=== PATIENT | female | born 1980 | race Caucasian/White ===

== ENCOUNTER 2017-07-11 09:45 | Emergency (ER) | payer OTHER ==
[~2017-07-11] VITALS: Ht 170.2 cm; Wt 88.2 kg
[~2017-07-11 09:45] MED LIST: CITA10TA8 PO; NXM/40 PO
[2017-07-11 09:47] VITALS: TEMP 37.1; Ht 170.2 cm; Wt 88.2 kg
[2017-07-11] MEDS ORDERED: SODIUM CHLORIDE 0.9% 1000ML 1,000 ML IV STA (10:09)
[2017-07-11] MEDS ORDERED: HYDROmorphone INJ 1 MG/ML SYR IV STA ×2 (10:09→12:44)
[2017-07-11] MEDS ORDERED: HYDR2TAB2 PO (10:13)
[2017-07-11] MEDS ORDERED: CITA20TA4 PO (10:13)
[2017-07-11 10:47] LABS: BASO % 0.2 %; BASO ABS # 0.02 K/uL (0-0.2); EOS % 0.6 %; EOS ABS # 0.06 K/uL (0-0.5); HEMATOCRIT 38.8 % (37-47); HEMOGLOBIN 12.9 g/dL (12.0-16.0); IG# 0.03 K/uL (0.00-0.02); LYMPH % 12.2 %; LYMPH ABS # 1.33 K/uL (1.2-3.4); MEAN CELL VOLUME 91.7 fL (80-100); MEAN CORPUSCULAR HEMOGLOBIN 30.5 pg (25-34); MEAN CORPUSCULAR HGB CONC 33.2 g/dl (32-36); MEAN PLATELET VOLUME 9.6 fL (7.4-10.4); MONO % 6.3 %; MONO ABS # 0.69 K/uL (0.11-0.59); NEUT % 80.4 %; NEUT ABS # 8.75 K/uL (1.4-6.5); PLATELET COUNT 228 K/uL (130-400); RED CELL DISTRIBUTION WIDTH CV 13.1 % (11.5-14.5); RED CELL DISTRIBUTION WIDTH SD 44.2 fL (36.4-46.3); WHITE BLOOD COUNT 10.88 K/uL (4.8-10.8)
--- NOTE | 2017-07-11 10:57 | Urology Consultation ---
History General Date of Service: Jul 11, 2017. Chief Complaint: right neph tube pain Primary Care Physician: Ej Aleman M.D. (MEDICAL) Pt seen a urologist before?: Yes If yes, why?: right kidney pain History of Present Illness I am asked by Dr Macdonald to evaluate and treat patient for right flank pain. She has a right neph [place] [facility] [place]. She has noted relief of her internal aching pain in the right kidney with the nephrostomy tube. She has instead new sharp pain from the tube itself at the skin level and with movement in the kidney area. It is sharp stabbing pain. She had gross hematuria draining from the nephrostomy tube until today. Today the urine is clear yellow. She drains about 75 mL of urine from neph tube every 2 hours. She has not had any cloudy urine of chills and no dysuria. Her temp at home this am tympanic was 100F. SHe says the new pain from the nephrostomy tube is much worse than the chronic aching kidney pain from her partial obstruction. Laboratory Labs were reviewed and are within normal limits unless listed below. Labs are available in the chart and at [facility] Problem List Medical Problems: (1) Back strain Status: Acute Past History other (upjo right ) Pt had a problem w anesthesia?: Yes Past Surgical History: exploratory laparoscopy, hysterectomy, other (2 pyeloplaty, one endopyelotomy, stents ) Family History Patient reports no known family medical history. kidney stones in aunts and uncles, dad mi age 55 Social History Hx Tobacco Use In Past Year?: No Smoking: non-smoker Alcohol: never Marital status: Housing status: lives with family Occupation status: employed Immunizations History of Influenza Vaccine: Yes Influenza Vaccine Date: Jan 13, 2012 History of Tetanus Vaccine?: No History of Pneumococcal: No History of Hepatitis B Vaccine: No History of MDRO No Allergies Coded Allergies: Morphine (Verified Allergy, Severe, hives, 08/06/15) Adhesives (Verified Allergy, Unknown, SKIN BLISTERS ,SWELLING WITH TAPE, ) Metronidazole (Verified Allergy, Unknown, NASTY TASTE MOUTH GI UPSET, 08/05) Sulfa Antibiotics (Verified Adverse Reaction, Unknown, NAUSEA AND VOMITING , 08/12/15) Medications Home Medications: Home Meds and Scripts Medications Dose Route/Sig Max Daily Dose Days Date Category Citalopram Hydrobromide 20 Mg Tab 20 Mg PO DAILY 07/11/17 Reported Hydromorphone Hcl 2 Mg Tab 2 Mg PO Q6 PRN 07/11/17 Reported Inpatient Medications: Current Inpatient Medications Medications (Trade) Dose Ordered Sig/Iam Route Start Time Stop Time Status Last Admin Dose Admin Sodium Chloride 1,000 ml @ 150 mls/hr Q6H40M STAT IV 07/11/17 10:09 07/11/17 16:48 Review of Systems Review of Systems Constitutional: + fever, No chills, No frequent headaches Neurological: No dizzy, No passing out, No seizures Endocrine: No excessive thirst, No too hot, No too cold Gastrointestinal: + abdominal pain, + constipation, No nausea Respiratory: No shortness of breath Female : + blood in urine, No frequent urination, No painful urination Physical Exam Vital Signs: Vital Signs Past 12 Hours Date Time Temp Pulse Resp B/P (MAP) Pulse Ox O2 Delivery O2 Flow Rate FiO2 07/11/17 09:47 37.1 111 20 118/72 100 Room Air Physical Exam: General Appearance: WD/WN, no apparent distress ENT: hearing grossly normal Neck: no adenopathy, no JVD, trachea midline Respiratory/Chest: no respiratory distress, no accessory muscle use Gastrointestinal: Abdomen: normal abdomen Bladder: normal bladder Renal: normal renal (no cellulitis around neph tube insertion site. right neph tube clean draining yellow urine no blood) Hernia: absent hernia Extremities: non-tender, normal inspection, no pedal edema, no calf tenderness Neurologic/Psychiatric: alert, normal mood/affect, oriented x 3, + pertinent finding (she is in no distress reclining in the hospital bed) Skin: normal color, warm/dry, no rash Lymphatic: no adenopathy Assessment & Plan Assessment & Plan right partial upjo last nuc scan shows only functional not mechanical obstruction neph tube did drain briskly day and night and relieved her chronic kidney ache she is not tolerating the stabbing pain of the tubes movement with her daily activities. We plan a right antegrade nephrostogram then remove the neph tube ancef one dose now
[2017-07-11 11:03] LABS: CREATININE 0.67 mg/dl (0.60-1.20); POTASSIUM 3.6 mmol/L (3.5-5.1)
[2017-07-11 11:05] LABS: ALBUMIN 3.8 gm/dl (3.4-5.0); TOTAL PROTEIN 7.4 gm/dl (6.4-8.2)
[2017-07-11] MEDS ORDERED: CEFAZOLIN IV 2,000 MG in SYRINGE 0 ML IV SCH (11:08)
[2017-07-11] MEDS ORDERED: CEFAZOLIN SOD 1000MG/7.5 ML IV PUSH IV ONE (11:10)
--- NOTE | 2017-07-11 11:50 | DIAGNOSTIC IMAGING REPORT ---
TUBE CHECK URINARY CLINICAL HISTORY: RIGHT NEPHROSTOMY TUBE PAIN pain TECHNIQUE: Image intensifier COMPARISON STUDY: None FINDINGS: This examination is performed by Dr. Cloud. Retrograde opacification of the patient's right nephrostomy tube shows opacification of a moderately distended upper right renal collecting system. There is moderate narrowing of the right ureteral pelvic junction. There is no evidence for contrast extravasation. There is no evidence for occlusion. IMPRESSION: 1. The right nephrostomy tube is widely patent. 2. Moderate right renal hydronephrosis. 3. Moderate narrowing of the proximal right ureter immediately distal to the right ureteral pelvic junction. This may simply be a postoperative component of edema secondary to the patient's prior pyeloplasty, although other entities such as fibrous tissue or congenital narrowing are not excluded. The above report was generated using voice recognition software. It may contain grammatical, syntax or spelling errors. Electronically signed by: Flaco Agustin M.D. 07/11/2017 11:49 AM Dictated Date/Time: 07/11/2017 11:45 AM
[2017-07-11 12:44] VITALS: BP 106/67; PULSE 93; O2SAT 100
[2017-07-11] MEDS ORDERED: KETOROLAC TROMETHAMINE 30 MG/ML VIAL IV STA (12:44)
--- NOTE | 2017-07-11 12:56 | EMERGENCY ROOM VISIT NOTE ---
History Report prepared by Farrah: Mor Merchant Under the Supervision of: Dr. Lynette Small M.D. First contact with patient: 10:03 Chief Complaint: FLANK PAIN Stated Complaint: RT FLANK PAIN History of Present Illness The patient is a 36 year old female who presents to the Emergency Room with complaints of constant right flank pain beginning a few days ago. She rates her pain as a 9/10 in severity. The patient's pain is worsened with movement. She denies any nausea, or vomiting. 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 She had the tube placed one week ago. She is scheduled to have her kidney removed in the near future. The patient called her logistics director today and was referred to the ED for pain control. She was told that urology, Dr Cloud, could remove the nephrostomy tube for her if need be. She is on Dilaudid at home for pain. The patient states that her tube has been draining blood and clots until today. Source of History: patient Onset: A few days ago Position: other (right flank) Symptom Intensity: 9/10 Timing: constant Modifying Factors (Worsening): movement Associated Symptoms: No nausea, No vomiting Review of Systems See HPI for pertinent positives & negatives. A total of 10 systems reviewed and were otherwise negative. Past Medical & Surgical Medical Problems: (1) History of endometriosis (2) Pelvic pain Surgical Problems: (1) Pyeloplasty Family History Patient reports no known family medical history. Social History Smoking Status: Never Smoker Alcohol Use: none Marital Status: Housing Status: lives with family Occupation Status: employed Current/Historical Medications Scheduled Citalopram Hydrobromide (Citalopram Hydrobromide), 20 MG PO DAILY Scheduled PRN Hydromorphone Hcl (Hydromorphone Hcl), 2 MG PO Q6 PRN for Pain Allergies Coded Allergies: Morphine (Verified Allergy, Severe, hives, 08/06/15) Adhesives (Verified Allergy, Unknown, SKIN BLISTERS ,SWELLING WITH TAPE, ) Metronidazole (Verified Allergy, Unknown, NASTY TASTE MOUTH GI UPSET, 08/05) Sulfa Antibiotics (Verified Adverse Reaction, Unknown, NAUSEA AND VOMITING , 08/12/15) Physical Exam Vital Signs Date Time Temp Pulse Resp B/P (MAP) Pulse Ox O2 Delivery O2 Flow Rate FiO2 07/11/17 12:44 93 18 106/67 100 Room Air 07/11/17 11:44 95 18 119/87 98 Room Air 07/11/17 09:47 37.1 111 20 118/72 100 Room Air Physical Exam Vital signs reviewed. General: Well-appearing female, in no significant distress. HEENT: No scleral icterus, PERRLA, neck supple. Atraumatic. Cardiovascular: Regular rate and rhythm, no extra sounds. Pulmonary: Clear to auscultation bilaterally, normal work of breathing. Pain with deep inspiration. Abdomen: Soft, nontender, nondistended, positive bowel sounds. Back: Draining clear yellow urine from right nephrostomy tube. Tender to palpation around the tube with no edema, or drainage. Musculoskeletal: Atraumatic, no peripheral edema. Neurologic: Patient awake alert and oriented x 3 Skin: Warm, dry, no rash Medical Decision & Procedures Laboratory Results 07/11/17 10:35 Red Blood Count 4.23, Mean Corpuscular Volume 91.7, Mean Corpuscular Hemoglobin 30.5, Mean Corpuscular Hemoglobin Concent 33.2, Mean Platelet Volume 9.6, Neutrophils (%) (Auto) 80.4, Lymphocytes (%) (Auto) 12.2, Monocytes (%) (Auto) 6.3, Eosinophils (%) (Auto) 0.6, Basophils (%) (Auto) 0.2, Neutrophils # (Auto) 8.75, Lymphocytes # (Auto) 1.33, Monocytes # (Auto) 0.69, Eosinophils # (Auto) 0.06, Basophils # (Auto) 0.02 07/11/17 10:35 Test 07/11/17 10:35 07/11/17 11:45 White Blood Count 10.88 K/uL (4.8-10.8) Red Blood Count 4.23 M/uL (4.2-5.4) Hemoglobin 12.9 g/dL (12.0-16.0) Hematocrit 38.8 % (37-47) Mean Corpuscular Volume 91.7 fL (80-100) Mean Corpuscular Hemoglobin 30.5 pg (25-34) Mean Corpuscular Hemoglobin Concent 33.2 g/dl (32-36) Platelet Count 228 K/uL (130-400) Mean Platelet Volume 9.6 fL (7.4-10.4) Neutrophils (%) (Auto) 80.4 % Lymphocytes (%) (Auto) 12.2 % Monocytes (%) (Auto) 6.3 % Eosinophils (%) (Auto) 0.6 % Basophils (%) (Auto) 0.2 % Neutrophils # (Auto) 8.75 K/uL (1.4-6.5) Lymphocytes # (Auto) 1.33 K/uL (1.2-3.4) Monocytes # (Auto) 0.69 K/uL (0.11-0.59) Eosinophils # (Auto) 0.06 K/uL (0-0.5) Basophils # (Auto) 0.02 K/uL (0-0.2) RDW Standard Deviation 44.2 fL (36.4-46.3) RDW Coefficient of Variation 13.1 % (11.5-14.5) Immature Granulocyte % (Auto) 0.3 % Immature Granulocyte # (Auto) 0.03 K/uL (0.00-0.02) Anion Gap 1.0 mmol/L (3-11) Est Creatinine Clear Calc Drug Dose 132.4 ml/min Estimated GFR () 131.1 Estimated GFR (Non- 113.1 BUN/Creatinine Ratio 17.9 (10-20) Calcium Level 9.0 mg/dl (8.5-10.1) Total Bilirubin 0.6 mg/dl (0.2-1) Direct Bilirubin 0.2 mg/dl (0-0.2) Aspartate Amino Transf (AST/SGOT) 15 U/L (15-37) Alanine Aminotransferase (ALT/SGPT) 26 U/L (12-78) Alkaline Phosphatase 59 U/L (45-117) Total Protein 7.4 gm/dl (6.4-8.2) Albumin 3.8 gm/dl (3.4-5.0) Urine Color DK YELLOW Urine Appearance CLOUDY (CLEAR) Urine pH 5.5 (4.5-7.5) Urine Specific Mcintosh 1.032 (1.000-1.030) Urine Protein NEG (NEG) Urine Glucose (UA) NEG (NEG) Urine Ketones TRACE (NEG) Urine Occult Blood TRACE (NEG) Urine Nitrite NEG (NEG) Urine Bilirubin NEG (NEG) Urine Urobilinogen NEG (NEG) Urine Leukocyte Esterase NEG (NEG) Urine WBC (Auto) 1-5 /hpf (0-5) Urine RBC (Auto) 5-10 /hpf (0-4) Urine Hyaline Casts (Auto) 1-5 /lpf (0-5) Urine Epithelial Cells (Auto) >30 /lpf (0-5) Urine Bacteria (Auto) NEG (NEG) Laboratory results per my review. Medications Administered Medications (Trade) Dose Ordered Sig/Iam Route Start Time Stop Time Status Last Admin Dose Admin Hydromorphone HCl (Dilaudid Inj) 1 mg NOW STAT IV 07/11/17 10:09 07/11/17 10:11 DC 07/11/17 11:12 1 MG Sodium Chloride 1,000 ml @ 150 mls/hr Q6H40M STAT IV 07/11/17 10:09 07/11/17 13:23 DC 07/11/17 10:09 150 MLS/HR Cefazolin Sodium (Cefazolin 1000mg Iv Push) 2,000 mg STK-MED ONCE IV 07/11/17 11:10 07/11/17 11:11 DC 07/11/17 11:10 2,000 MG Ketorolac Tromethamine (Toradol Inj) 30 mg NOW STAT IV 07/11/17 12:44 07/11/17 12:45 DC 07/11/17 12:50 30 MG Hydromorphone HCl (Dilaudid Inj) 1 mg NOW STAT IV 07/11/17 12:44 07/11/17 12:45 DC 07/11/17 12:51 1 MG ED Course 1006: Past medical records reviewed. The patient was evaluated in room B5. A complete history and physical examination was performed. 1009: Ordered Sodium Chloride 1000 ml @ 150 mls/hr IV, Dilaudid Inj 1 mg IV. 1100: I spoke with Dr. Cloud. The patient will be evaluated for possible nephrostomy tube removal. 1108: Ordered Cefazolin Sodium 2000 mg/Syringe 15 mL @ 3.375 mL/min IV. 1210: The patient was evaluated by Dr. Cloud. She did not remove the patient' s nephrostomy tube as the ureter was not draining well. 1244: Ordered Dilaudid Inj 1 mg IV, Toradol Inj 30 mg IV. 1250: Upon reevaluation, the patient appeared to have improvement of her symptoms. I discussed findings with her. She verbalized agreement of the treatment plan. The patient was discharged home. Medical Decision Differential diagnosis: Etiologies such as renal colic, appendicitis, diverticulitis, mesenteric ischemia, aortic pathology, infections, inflammatory bowel disease, PUD, biliary pathology, UTI, as well as others were entertained. This patient was evaluated and appeared to be in no significant distress. She is tearful and somewhat uncomfortable with movement. The right nephrostomy tube appears to be in good condition, there is no surrounding discharge or erythema. Laboratory work was obtained, IV fluids were initiated. Patient was given 1 mg of IV Dilaudid. X-ray and ultrasound were ordered to evaluate the tube placement however Dr. Cloud of urology arrived in the emergency department. She stated she would like to take the patient for nephrostogram. After the patient's procedure, Dr. Cloud decided that the tube removal was not in her best interest. She has made arrangements for a tube exchange to a smaller more flexible tube. She felt this would likely cause the patient less pain. Patient was given 30 mg of IV Toradol an additional 1 mg of IV Dilaudid post procedure. She was discharged with an understanding of the plan. She will continue her oral pain medications at home and follow-up with [facility] urology/interventional radiology. They will contact her with appointment times. Patient was discharged in care of her mother. Medication Reconcilliation Current Medication List: was personally reviewed by me Blood Pressure Screening Patient's blood pressure: Normal blood pressure Blood pressure disposition: Did not require urgent referral Consults Time Called: 1155 Consulting Physician: Dr. Cloud - Urology Returned Call: 1200 I reviewed the patient's case with Dr. Cloud. She will evaluate the patient for possible nephrostomy tube removal. 1241: I spoke with Dr. Cloud again. She recommends the patient be discharged for follow up with urology and interventional radiology. Impression Primary Impression: Right flank pain Additional Impression: Complication of nephrostomy Scribe Attestation The scribe's documentation has been prepared under my direction and personally reviewed by me in its entirety. I confirm that the note above accurately reflects all work, treatment, procedures, and medical decision making performed by me. Departure Information Dispostion Home / Self-Care Referrals Ej Aleman M.D. (MEDICAL) (PCP) Forms HOME CARE DOCUMENTATION FORM, IMPORTANT VISIT INFORMATION Patient Instructions My [facility] [employer] Additional Instructions Diagnosis: Right flank pain, nephrostomy tube. Continue your pain medications as prescribed. Dr. Cloud has contacted interventional radiology and urology at [facility]. They should be contacting you regarding follow-up and plans for a tube exchange. Return to the emergency department for fevers, worsening of symptoms or any medical concerns. Problem Qualifiers
[2017-07-12] MEDS ORDERED: CEFAZOLIN SOD 2000MG/15 ML IV PUSH IV ONE (06:00)
== END 2017-07-11 13:06 | disposition home or self-care (01) ==
LOC: C.EDB 09:46
DX: R10.84 Generalized abdominal pain (principal); T85.9XXA Unspecified complication of internal prosthetic device, implant and graft, initial encounter; X58.XXXA Exposure to other specified factors, initial encounter; Z88.5 Allergy status to narcotic agent; Z88.2 Allergy status to sulfonamides; Z88.8 Allergy status to other drugs, medicaments and biological substances

== ENCOUNTER 2023-12-19 15:42 | Observation (INO) ==
[2023-12-19 16:47] LABS: Hematocrit (blood only) 38.1 % (37.0-47.0); Mean Corpuscular Hgb Conc 34.1 g/dL (32.0-36.0); Mean Corpuscular Volume 90.9 fL (80.0-100.0); Mean Platelet Volume 10.1 fL (9.4-12.4); Platelet Count 277 K/uL (130-400); RDW Coefficient of Variation 12.3 % (11.5-14.5); RDW Standard Deviation 41.2 fL (36.4-46.3); Red Blood Count 4.19 M/uL (4.20-5.40); White Blood Count 10.25 K/ul (4.8-10.8)
[2023-12-19 17:02] LABS: Alanine Aminotransferase 14 U/L (7-52); Albumin Globulin Ratio 1.7 (0.9-2); Albumin Level 4.5 gm/dl (3.4-5.0); Alkaline Phosphatase 56 U/L (34-104); Anion Gap 7 (3-11); Aspartate Aminotransferase 13 U/L (13-39); BUN Creatinine Ratio 15.8 (10-20); Bilirubin,Total 0.3 mg/dl (0.2-1.0); Blood Urea Nitrogen 19 mg/dl (6-23); Calcium 9.4 mg/dl (8.6-10.3); Carbon Dioxide 24 mmol/L (21-32); Chloride 107 mmol/L (98-107); Creatinine Clr Calc Pharmacy 74.8 ml/min; Est GFR (African American) 64.6 ml/min; Est GFR (Non-African American) 55.7 ml/min; Globulin 2.6 gm/dl (2.5-4.0); Glucose 165 mg/dl (70-99(Fasting)); Sodium 138 mmol/L (136-145); Total Protein 7.1 gm/dl (6.0-8.3)
[2023-12-19 17:05] LABS: Basophils # (auto) 0.01 K/uL (0.00-0.20); Basophils % (auto) 0.1 %; Immature Granulocytes # (auto) 0.04 K/uL (0.01-0.20); Immature Granulocytes % (auto) 0.4 %; Lymphocytes # (auto) 0.74 K/uL (1.20-3.40); Lymphocytes % (auto) 7.2 %; Monocytes # (auto) 0.21 K/uL (0.11-0.59); Neutrophils # (auto) 9.25 K/uL (1.40-6.50); Neutrophils % (auto) 90.3 %
[2023-12-19 17:08] LABS: Troponin I High Sensitivity < 2.3 pg/ml (0-14)
[2023-12-19 17:13] LABS: INR 0.9 (0.9-1.1); Partial Thromboplastin Ratio 0.9; Partial Thromboplastin Time 24 Seconds (21-31)
--- NOTE | 2023-12-19 17:17 | XRay Report ---
XR chest 1V not portable HISTORY: 42 years-old Female Chest pain, nonspecific COMPARISON: 07/22/2013 TECHNIQUE: PA view of the chest FINDINGS: Cardiomediastinal and hilar silhouettes are within normal limits. No pneumothorax, pleural effusion o r airspace consolidation. Mild sigmoid thoracolumbar scoliosis. Cholecystectomy. IMPRESSION: No acute process. ACT 112: Negative or not required by law. The above report was generated using voice recognition software. It may contain grammatical, syntax o r spelling errors. Electronically signed by: Sonido Cintron M.D. 12/19/2023 5:15 PM
--- NOTE | 2023-12-19 18:51 | Emergency Department Note ---
Impression & Plan Chest pain ED Provider Note NAME: MASHA HARTMANN AGE: 42 SEX: F : 1980 ARRIVES VIA: Walk-In INFORMANT: Patient, ED PROVIDER(S): Russ August MD CHIEF COMPLAINT: Chest pain HPI: This is a 42-year-old female senting for chest pain. Patient states that she does shortness of breath for the past 6-month, mostly exertional. However today's reports that she had chest pain in addition. She notes starting chest pain this morning. Her pain is at baseline for her and when she is walking around is worse and can be up to a 7. She notes walking up stairs also worse. She notes it is all exertional pain that feels somewhat sharp and like an ache in the center of her chest. Notes no fever, chills, nausea or vomiting. Does not believe this is positional. Nonpleuritic pain. ROS: See above HPI for pertinent positives & negatives. A total of 10 systems reviewed and were otherwise negative. PAST MEDICAL HISTORY: See Below PAST SURGICAL HISTORY: See Below FAMILY HISTORY: See Below SOCIAL HISTORY: See Below HOME MEDICATIONS: See Below ALLERGIES: See Below VITALS: See Below PHYSICAL EXAMINATION: General: resting comfortably in no acute distress Head: Normocephalic and atraumatic Eyes: Normal inspection, extraocular muscles intact Ear, nose, throat: Normal external exam Neck: Normal range of motion Respiratory: lungs clear to auscultation bilaterally Cardiovascular: Regular rate/rhythm, no murmur GI: soft, nontender, no guarding or rebound Extremities: nontender, moves all extremities Neuro: The patient awake and alert, appropriately conversive, no focal deficits, symmetric faces Skin: Warm, dry, and intact MEDICAL DECISION MAKING: This is a pleasant 42-year-old female presenting for chest pain. -ECG independently interpreted by me with sinus tachycardia at a rate of 102, normal axis, normal CO, normal QRS, normal QTc, no ST segment elevations consistent with STEMI criteria -Bloodwork is reviewed showing no significant leukocytosis, anemia, electrolyte or creatinine abnormality -Troponin is currently negative. Patient EKG overall reassuring. -Chest Xray independently interpreted by me showing no pneumothorax, focal opacity, or pleural effusions. -Patient is having no hypoxia, pleurisy, leg swelling. Clinically lower concern for PE. We patient requires current stress test due to current exertional pain. Lower concern for acute dissection clinically. -Will give aspirin at this time for her chest pain -Otherwise due to patient's persistent symptoms, will admit for cardiac rule out. Do have low suspicion overall but she has persistent chest pain that is exertional and no previous workup. -Discussed with [facility] service for admission Differential diagnosis: ACS, PE, dissection, GERD, upper respiratory infection ER treatment provided: See below Diagnostics interpreted by me: ECG: See above Cardiac Monitoring: An order was placed for continuous cardiac monitoring. The monitor shows a rate of 87 with sinus rhythm. Laboratory studies: As stated above and show below. Imaging studies: See below. Past Med/Surg History Problem List (Updated 12/20/23 @ 12:19 by Russ August MD) Chest pain (Acute) HE (dyspnea on exertion) Chest pain History of nephrectomy Chronic flank pain (Acute) Dehydration (Acute) Diarrhea (Acute) Flank pain (Acute) Head injury (Acute) Hydronephrosis (Acute) Nausea, vomiting and diarrhea (Acute) Nausea, vomiting and diarrhea (Acute) Nausea, vomiting and diarrhea (Acute) Pelvic pain Right flank pain (Acute) Syncope (Acute) Vomiting (Acute) Medical History Rheumatoid arthritis History of endometriosis Complication of nephrostomy Family History Father COPD (chronic obstructive pulmonary disease) Mother Rheumatoid arthritis Social History Smoking Status: Never smoker Hx Alcohol Use: Yes Hx Substance Use: No Preferred Language: Comoran Communication Ability: Effective [employer] Supervisor Required: No Beliefs That Will Affect Care: None marital status: Current Living Situation: Spouse and Family current occupational status: employed 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 Feels Safe at Home: Yes Safety Concerns: Feels Safe At This Time Assistive Devices: Glasses Allergies Allergies Allergy/AdvReac Type Severity Reaction Status Date / Time morphine Allergy Severe hives Verified 11/21/23 09:46 adhesive Allergy Unknown SKIN Verified 08/06/15 13:28 BLISTERS ,SWELLING WITH TAPE metronidazole Allergy Unknown NASTY Verified 08/06/15 13:48 TASTE MOUTH GI UPSET Sulfa (Sulfonamide AdvReac Unknown NAUSEA AND Verified 08/12/15 17:34 Antibiotics) VOMITING Home Meds Home Medications Medication Instructions Recorded Confirmed citalopram 40 mg tablet 40 mg PO DAILY 12/19/23 12/19/23 cyanocobalamin (vitamin B-12) 1,000 mcg Q4WK 12/19/23 12/19/23 1,000 mcg/mL injection syringe hydroxychloroquine 200 mg tablet 200 mg PO BID 12/19/23 12/19/23 pantoprazole 40 mg tablet,delayed 40 mg PO DAILY 12/19/23 12/19/23 release spironolactone 25 mg tablet 25 mg PO DAILY 12/19/23 12/19/23 Results & Data (ED) Vital Signs Vital Signs - 24 hr 12/19/23 15:52 12/19/23 17:05 12/19/23 17:05 Temperature 36.5 C Temperature Source Temporal Artery Scan Pulse Rate 105 H Pulse Rate [Finger] 99 H Pulse Rate from SpO2 Sensor Pulse Rhythm Regular Pulse Strength Normal Respiratory Rate 18 24 Respiratory Effort / Characteristics Non-Labored Non-Labored Spontaneous Respiratory Depth Normal Normal Respiratory Pattern Regular Regular Blood Pressure 146/85 H Blood Pressure [Left Arm] 133/83 Blood Pressure Mean 105 Blood Pressure Mean [Left Arm] 99 Blood Pressure Position Sitting Pulse Oximetry 98 99 99 Oxygen Delivery Method Room Air Room Air Room Air Sepsis Recent Fever Within 48 Hours No Sepsis New/Unexplained Change in Mental Status No Sepsis Action Taken by Nursing No Action Required 12/19/23 17:09 12/19/23 17:42 12/19/23 17:57 Temperature Temperature Source Pulse Rate 90 95 H Pulse Rate [Finger] Pulse Rate from SpO2 Sensor 90 Pulse Rhythm Pulse Strength Respiratory Rate 15 Respiratory Effort / Characteristics Respiratory Depth Respiratory Pattern Blood Pressure Blood Pressure [Left Arm] Blood Pressure Mean Blood Pressure Mean [Left Arm] Blood Pressure Position Pulse Oximetry 99 97 Oxygen Delivery Method Room Air Sepsis Recent Fever Within 48 Hours Sepsis New/Unexplained Change in Mental Status Sepsis Action Taken by Nursing 12/19/23 17:58 12/19/23 18:15 12/19/23 18:30 Temperature Temperature Source Pulse Rate 84 87 Pulse Rate [Finger] 92 H Pulse Rate from SpO2 Sensor 87 86 Pulse Rhythm Pulse Strength Respiratory Rate 18 17 Respiratory Effort / Characteristics Non-Labored Spontaneous Respiratory Depth Respiratory Pattern Blood Pressure Blood Pressure [Left Arm] 139/85 Blood Pressure Mean Blood Pressure Mean [Left Arm] 103 Blood Pressure Position Pulse Oximetry 100 99 98 Oxygen Delivery Method Sepsis Recent Fever Within 48 Hours Sepsis New/Unexplained Change in Mental Status Sepsis Action Taken by Nursing 12/19/23 18:30 12/19/23 19:00 12/19/23 19:12 Temperature Temperature Source Pulse Rate 87 79 Pulse Rate [Finger] Pulse Rate from SpO2 Sensor 80 Pulse Rhythm Regular Pulse Strength Respiratory Rate 17 18 Respiratory Effort / Characteristics Respiratory Depth Respiratory Pattern Blood Pressure 124/82 Blood Pressure [Left Arm] Blood Pressure Mean 100 Blood Pressure Mean [Left Arm] Blood Pressure Position Pulse Oximetry 98 98 Oxygen Delivery Method Room Air Sepsis Recent Fever Within 48 Hours Sepsis New/Unexplained Change in Mental Status Sepsis Action Taken by Nursing 12/19/23 19:30 12/19/23 19:30 12/19/23 19:30 Temperature Temperature Source Pulse Rate 76 Pulse Rate [Finger] Pulse Rate from SpO2 Sensor 76 Pulse Rhythm Pulse Strength Respiratory Rate 15 Respiratory Effort / Characteristics Respiratory Depth Respiratory Pattern Blood Pressure 126/89 126/89 Blood Pressure [Left Arm] Blood Pressure Mean 100 100 Blood Pressure Mean [Left Arm] Blood Pressure Position Pulse Oximetry 98 Oxygen Delivery Method Sepsis Recent Fever Within 48 Hours Sepsis New/Unexplained Change in Mental Status Sepsis Action Taken by Nursing Laboratory Data 12/20/23 07:24 12/20/23 07:24 Lab Results 12/19/23 Range/Units 16:05 WBC 10.25 (4.8-10.8) K/ul RBC 4.19 L (4.20-5.40) M/uL Hgb 13.0 (12.0-16.0) g/dl Hct 38.1 (37.0-47.0) % MCV 90.9 (80.0-100.0) fL MCH 31.0 (25.0-34.0) pg MCHC 34.1 (32.0-36.0) g/dL RDW Std Deviation 41.2 (36.4-46.3) fL RDW Coeff of Gregory 12.3 (11.5-14.5) % Plt Count 277 (130-400) K/uL MPV 10.1 (9.4-12.4) fL Immature Gran % (Auto) 0.4 % Neut % (Auto) 90.3 % Lymph % (Auto) 7.2 % Gregg % (Auto) 2.0 % Eos % (Auto) 0.0 % Baso % (Auto) 0.1 % Neut # (Auto) 9.25 H (1.40-6.50) K/uL Lymph # (Auto) 0.74 L (1.20-3.40) K/uL Gregg # (Auto) 0.21 (0.11-0.59) K/uL Eos # (Auto) 0.00 (0.00-0.50) K/uL Baso # (Auto) 0.01 (0.00-0.20) K/uL Immature Gran # (Auto) 0.04 (0.01-0.20) K/uL PT 10.0 (9.0-12.0) Seconds INR 0.9 (0.9-1.1) APTT 24 (21-31) Seconds PTT Ratio 0.9 Sodium 138 (136-145) mmol/L Potassium 4.0 (3.5-5.1) mmol/L Chloride 107 (98-107) mmol/L Carbon Dioxide 24 (21-32) mmol/L Anion Gap 7 (3-11) BUN 19 (6-23) mg/dl Creatinine 1.20 (0.6-1.2) mg/dl Est Cr Clr Drug Dosing 74.8 ml/min Est GFR ( Amer) 64.6 ml/min Est GFR (Non-Af Amer) 55.7 ml/min BUN/Creatinine Ratio 15.8 (10-20) Glucose 165 H (70-99(Fasting)) mg/dl Calcium 9.4 (8.6-10.3) mg/dl Total Bilirubin 0.3 (0.2-1.0) mg/dl AST 13 (13-39) U/L ALT 14 (7-52) U/L Alkaline Phosphatase 56 (34-104) U/L Troponin I High Sens < 2.3 (0-14) pg/ml Total Protein 7.1 (6.0-8.3) gm/dl Albumin 4.5 (3.4-5.0) gm/dl Globulin 2.6 (2.5-4.0) gm/dl Albumin/Globulin Ratio 1.7 (0.9-2) Administered Medications Acetaminophen (Acetaminophen 325 Mg Tab) 650 mg PO Q4H PRN PRN Reason: pain/fever Stop: 01/18/24 21:56 Last Admin: 12/19/23 22:37 Dose: 650 mg Documented By: ODILIA Aspirin (Aspirin 81 Mg Ectab) 81 mg PO DAILY NOAH Stop: 01/19/24 08:59 Last Admin: 12/20/23 08:11 Dose: 81 mg Documented By: RASHAAD Calcium Carbonate (Calcium Carbonate 500 Mg Chewable Tab) 1,000 mg PO Q8H NOAH Stop: 12/22/23 01:01 Last Admin: 12/20/23 09:24 Dose: 1,000 mg Documented By: RASHAAD Citalopram Hydrobromide (Citalopram 40 Mg Tab) 40 mg PO DAILY NOAH Stop: 01/19/24 08:59 Last Admin: 12/20/23 08:11 Dose: 40 mg Documented By: RASHAAD Heparin Sodium (Porcine) (Heparin Sod 5,000 Unit/0.5 Ml Vial) 5,000 units SQ Q8 NOAH Stop: 01/18/24 21:59 Last Admin: 12/20/23 05:04 Dose: 5,000 units Documented By: Admin: 12/19/23 22:37 Dose: 5,000 units Documented By: ODILIA Hydromorphone HCl (Hydromorphone Inj 0.5 Mg/0.5 Ml Syr) 0.5 mg IV Q6H PRN PRN Reason: Pain Stop: 01/03/24 00:45 Last Admin: 12/20/23 09:17 Dose: 0.5 mg Documented By: Admin: 12/20/23 02:15 Dose: 0.5 mg Documented By: LEAH Hydroxychloroquine Sulfate (Hydroxychloroquine Sulfate 200 Mg Tab) 200 mg PO BID NOAH Stop: 01/18/24 21:56 Last Admin: 12/20/23 08:11 Dose: 200 mg Documented By: Admin: 12/19/23 22:56 Dose: 200 mg Documented By: ODILIA Oxycodone HCl (Oxycodone Hcl Ir 5 Mg Tab (Immediate Release)) 5 - 10 mg PO QID PRN PRN Reason: Pain Stop: 01/03/24 00:44 Last Admin: 12/20/23 07:05 Dose: 10 mg Documented By: Admin: 12/20/23 00:55 Dose: 10 mg Documented By: LEAH Pantoprazole Sodium (Pantoprazole 40 Mg Tab) 40 mg PO DAILY NOAH Stop: 01/19/24 08:59 Last Admin: 12/20/23 08:11 Dose: 40 mg Documented By: RASHAAD Spironolactone (Spironolactone 25 Mg Tab) 25 mg PO DAILY NOAH Stop: 01/19/24 08:59 Last Admin: 12/20/23 08:11 Dose: 25 mg Documented By: RASHAAD Discontinued Medications Aspirin (Aspirin Chew 324 Mg) 324 mg PO NOW STA Stop: 12/19/23 19:03 Last Admin: 12/19/23 19:06 Dose: 324 mg Documented By: ODILIA Ioversol (Optiray 320 125ml) 119 ml IV ONCE ONE Stop: 12/20/23 01:07 Last Admin: 12/20/23 01:07 Dose: 119 ml Documented By: GAURANG Lorazepam (Lorazepam 0.5 Mg Tab) 0.5 mg PO ONE ONE Stop: 12/19/23 19:46 Last Admin: 12/19/23 19:55 Dose: 0.5 mg Documented By: ODILIA Nitroglycerin (Nitroglycerin Sl 0.4 Mg/Tab Tab) 0.4 mg SL ONE ONE Stop: 12/19/23 19:45 Last Admin: 12/19/23 19:55 Dose: 0.4 mg Documented By: ODILIA Imaging Data Radiologist's Impression: Chest X-Ray 12/19/23 15:55 XR chest 1V not portable HISTORY: 42 years-old Female Chest pain, nonspecific COMPARISON: 07/22/2013 TECHNIQUE: PA view of the chest FINDINGS: Cardiomediastinal and hilar silhouettes are within normal limits. No pneumothorax, pleural effusion or airspace consolidation. Mild sigmoid thoracolumbar scoliosis. Cholecystectomy. IMPRESSION: No acute process. ACT 112: Negative or not required by law. The above report was generated using voice recognition software. It may contain grammatical, syntax or spelling errors. Electronically signed by: Sonido Cintron M.D. 12/19/2023 5:15 PM Discharge Plan Visit Data Chief Complaint: Shortness of Breath/Dyspnea Stated Complaint: CHEST PAIN, SOB, ABNORMAL EKG ED Provider: Russ August Discharge Problem: Chest pain Patient Disposition: Admitted As Inpatient Discharge Instructions Interventions: ED Discharge Assessment Last Done: 12/19/23 23:38
[2023-12-19] MEDS: ASPIRIN CHEW 324 MG PO STA (19:06)
[2023-12-19] MEDS: NITROGLYCERIN SL 0.4 MG/TAB TAB SL ONE (19:55)
[2023-12-19] MEDS: LORazepam 0.5 MG TAB PO ONE (19:55)
--- NOTE | 2023-12-19 20:09 | History & Physical Report ---
Date of Service December 19, 2023 Assessment & Plan (1) Chest pain: Plan: Chest Pain: R/O ACS DD: Anxiety/adjustment disorder Initial troponin:Negative EKG shows: No signs of acute ischemia CXR: No acute process. Check resting echo Trend serial cardiac enzymes, repeat EKG, fasting lipid panel in AM Start Aspirin 81 mg daily Oxygen PRN NPO after midnight Cardiology consulted per patient's request Nitroglycerin as needed Ativan as needed Hyperglycemia No known history of diabetes Check HbA1c GERD Continue Protonix H/O congenital UPJ obstruction S/P right nephrectomy Monitor renal function Depression Panic disorder Essential tremor Continue home medications: Celexa PCP planning to transition from Celexa to Cymbalta(not started yet) Palindromic Rheumatism Continue hydroxychloroquine Follows with rheumatology Dr. Gabriel Essential tremor Stable DVT Px: Heparin SQ CODE STATUS Full code History of Present Illness Chief Complaint: Chest Pain Primary Care Provider: Rob Mackenzie MD Patient is a 42-year-old female with history of GERD, congenital UPJ obstruction S/P right nephrectomy, depression, palindromic rheumatism, panic disorder, essential tremor and other medical problems presents with history of chest pain associated with shortness of breath. Patient states having ongoing shortness of breath on exertion for about 6 months. 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 She describes chest pain retrosternal, nonradiating, heaviness," toothlike ache", constant pain. Denies any nausea, vomiting, diaphoresis, fever, chills, cough, chest trauma. Also denies any abdominal pain, diarrhea, dysuria, recent infections. Patient recently had a course of prednisone for her arthritis when she developed anxiety 1 week ago which resolved after discontinuing prednisone. She states that she has been going through a lot of stress due to divorce. She also states having intermittent palpitations. Allergies Allergy/AdvReac Type Severity Reaction Status Date / Time morphine Allergy Severe hives Verified 11/21/23 09:46 adhesive Allergy Unknown SKIN Verified 08/06/15 13:28 BLISTERS ,SWELLING WITH TAPE metronidazole Allergy Unknown NASTY Verified 08/06/15 13:48 TASTE MOUTH GI UPSET Sulfa (Sulfonamide AdvReac Unknown NAUSEA AND Verified 08/12/15 17:34 Antibiotics) VOMITING Home Medications Medication Instructions Recorded Confirmed Type citalopram 40 mg tablet 40 mg PO DAILY 12/19/23 12/19/23 History cyanocobalamin (vitamin B-12) 1,000 mcg Q4WK 12/19/23 12/19/23 History 1,000 mcg/mL injection syringe hydroxychloroquine 200 mg tablet 200 mg PO BID 12/19/23 12/19/23 History pantoprazole 40 mg tablet,delayed 40 mg PO DAILY 12/19/23 12/19/23 History release spironolactone 25 mg tablet 25 mg PO DAILY 12/19/23 12/19/23 History Past Med/Surg History Problem List (Updated 12/19/23 @ 20:10 by Marin Zamudio MD) Chest pain History of nephrectomy Chronic flank pain (Acute) Dehydration (Acute) Diarrhea (Acute) Flank pain (Acute) Head injury (Acute) Hydronephrosis (Acute) Nausea, vomiting and diarrhea (Acute) Nausea, vomiting and diarrhea (Acute) Nausea, vomiting and diarrhea (Acute) Pelvic pain Right flank pain (Acute) Syncope (Acute) Vomiting (Acute) Medical History Rheumatoid arthritis History of endometriosis Complication of nephrostomy Family History (Updated 12/19/23 @ 20:07 by Marin Zamudio MD) Father COPD (chronic obstructive pulmonary disease) Mother Rheumatoid arthritis Social History Smoking Status: Never smoker Preferred Language: Georgian marital status: Current Living Situation: Spouse and Family current occupational status: employed 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 Feels Safe at Home: Yes Review of Systems Review of Systems: All systems reviewed & are unremarkable except as noted in Subjective Physical Exam Physical Exam: Physical Exam: Vitals signs as noted above General Appearance: Obese, no apparent distress Head: normocephalic, Atraumatic Eyes: normal inspection, EOMI Neck: supple, Trachea midline Respiratory/Chest: Normal breath sounds, CTA, No accessory muscle use Cardiovascular: S1, S2, No murmur Abdomen/GI:Soft, Non tender, Bowel sounds present Extremities/Musculoskeletal:normal inspection, no edema Neurologic/Psych:AAOX3, grossly no focal neurological deficits Skin: normal color, warm Results & Data Results & Data Vital Signs (Past 12 Hours) Vital Signs Temp Pulse Pulse Resp BP BP Pulse Ox 12/19/23 19:30 76 15 98 12/19/23 19:30 126/89 12/19/23 19:30 126/89 12/19/23 19:12 79 18 98 12/19/23 19:00 87 17 98 12/19/23 18:30 124/82 12/19/23 18:30 87 17 98 12/19/23 18:15 84 99 12/19/23 17:58 92 H 18 139/85 100 12/19/23 17:57 95 H 12/19/23 17:42 90 15 97 12/19/23 17:09 99 12/19/23 17:05 99 H 24 133/83 99 12/19/23 17:05 99 12/19/23 15:52 36.5 C 105 H 18 146/85 H 98 O2 Del Method 12/19/23 19:30 12/19/23 19:30 12/19/23 19:30 12/19/23 19:12 12/19/23 19:00 Room Air 12/19/23 18:30 12/19/23 18:30 12/19/23 18:15 12/19/23 17:58 12/19/23 17:57 12/19/23 17:42 12/19/23 17:09 Room Air 12/19/23 17:05 Room Air 12/19/23 17:05 Room Air 12/19/23 15:52 Room Air Laboratory Results Short CBC 12/19/23 Range/Units 16:05 WBC 10.25 (4.8-10.8) K/ul Hgb 13.0 (12.0-16.0) g/dl Hct 38.1 (37.0-47.0) % Plt Count 277 (130-400) K/uL BMP 12/19/23 16:05 Sodium 138 Potassium 4.0 Chloride 107 Carbon Dioxide 24 BUN 19 Creatinine 1.20 Glucose 165 H Calcium 9.4 Liver Function 12/19/23 Range/Units 16:05 Total Bilirubin 0.3 (0.2-1.0) mg/dl AST 13 (13-39) U/L ALT 14 (7-52) U/L Alkaline Phosphatase 56 (34-104) U/L Albumin 4.5 (3.4-5.0) gm/dl Diagnostic Findings --CXR:No acute process. ECG Additional Comments: --EKG: Sinus tachycardia, QTc 414, no signs of acute ischemia. Code Status & VTE Plan VTE Prophylaxis Plan VTE Prophylaxis will be ordered: Yes
[2023-12-19] MEDS ORDERED: ONDANSETRON INJ 2 MG/ML 2 ML VIAL IV PRN (21:57)
[2023-12-19] MEDS ORDERED: NITROGLYCERIN SL 0.4 MG/TAB TAB SL PRN (21:57)
[2023-12-19] MEDS ORDERED: POLYETHYLENE (MIRALAX) 17 GM PACK PO PRN (21:57)
[2023-12-19] MEDS ORDERED: LORazepam 0.5 MG TAB PO PRN (21:57)
--- NOTE | 2023-12-19 22:26 | Electrocardiogram Report ---
Test Reason : Blood Pressure : */* mmHG Vent. Rate : 102 BPM Atrial Rate : 102 BPM P-R Int : 134 ms QRS Dur : 78 ms QT Int : 318 ms P-R-T Axes : 51 27 42 degrees QTcB Int : 414 ms Sinus tachycardia Cannot rule out Anterior infarct , age undetermined Abnormal ECG When compared with ECG of 06-Aug-2015 14:06, No significant change was found Confirmed by Bulmaro Calzada ([id number]) on 12/19/2023 10:26:36 PM Referred By: Confirmed By: Bulmaro Calzada
[2023-12-19] MEDS: ACETAMINOPHEN 325 MG TAB PO PRN (22:37)
[2023-12-19] MEDS: HEPARIN SOD 5,000 UNIT/0.5 ML VIAL SQ SCH (22:37)
[2023-12-19] MEDS: HYDROXYCHLOROQUINE SULFATE 200 MG TAB PO SCH (22:56)
[2023-12-20] MEDS: oxyCODONE HCL IR 5 MG TAB (IMMEDIATE RELEASE) PO PRN (00:55)
[2023-12-20] MEDS: OPTIRAY 320 125ml IV ONE (01:07)
[2023-12-20] MEDS: HYDROmorphone INJ 0.5 MG/0.5 ML SYR IV PRN (02:15)
--- NOTE | 2023-12-20 02:52 | CT Scan Report ---
Exam(s): CTA CHEST IV Amt: 119 cc opti 320 EXAM: CT Angiography Chest With Intravenous Contrast CLINICAL HISTORY: Reason for exam: cp. TECHNIQUE: Axial computed tomographic angiography images of the chest with intravenous contrast. Automated exposure control was utilized for the study. A dose lowering technique was utilized adhering to the principles of ALARA. MIP reconstructed images were created and reviewed. COMPARISON: No relevant prior studies available. FINDINGS: Pulmonary arteries: Unremarkable. No pulmonary embolism. Aorta: No acute findings. No thoracic aortic aneurysm. Lungs: Unremarkable. No mass. No consolidation. Pleural space: Unremarkable. No significant effusion. No pneumothorax. Heart: Unremarkable. No cardiomegaly. No significant pericardial effusion. No evidence of RV dysfunction. Bones/joints: No acute fracture. No dislocation. Soft tissues: Unremarkable. Lymph nodes: Unremarkable. No enlarged lymph nodes. Gallbladder and bile ducts: Cholecystectomy. IMPRESSION: No acute findings in the visualized arteries of the chest. Electronically signed by: Eder Steinberg MD 12/20/23 02:19 AM
--- OUTSIDE RECORDS SUMMARY | 2023-12-20 06:18 | External Medical Summary | Summary of Care ---
Author Name Unknown Organization [facility] Address [address] [place] [address] Phone [phone] Care Team Providers Care General Engineering Teacher Name Role Phone Rob Mackenzie MD Primary Care Provider [phone] Reason for Visit * Reason Comments Acute Encounter Details Date Type Department Care Team (Late st Contact Info) Description 12/13/2023 4:20 PM EDT Telemedicine Family Practice [facility] [address] [facility] [place] [id number] Justina Garrett CRNP [address] [facility] [id number] Major depressive disorder, recurrent episode, moderate (HCC)*; Panic disorder; Tremor Allergies Active Allergy Reactions Criticality Noted Date Comments Adhesive Tape 11/15/2006 "like a burn" Morphine Sulfate Hives 12/30/2009 Other Allergy (See Comments) Rash 018 Dermabond Adhesive documented as of this encounter (statuses as of 12/13/2023) Medications Medication Sig Dispensed Refills Start Date End Date Status Fluorouracil 5 % External Cream (Efudex)Indications :Skin lesion Apply topically to affected area 2 times a day. Apply to affected area once per day as needed 40 g 06/25/2023 Active Additional Information Patient not taking.Reported on 11/16/2023 Pantoprazole Sodium 40 MG Oral Tablet Delayed Release (Protonix)Indicatio ns:Gastroesophageal reflux disease, unspecified whether esophagitis present TAKE ONE TABLET BY MOUTH EVERY MORNING 90 Tablet 3 08/09/2023 Active Citalopram Hydrobromide 40 MG Oral Tablet (CeleXA)Indications :Major depressive disorder, recurrent episode, moderate (HCC) Take 1 Tablet by mouth daily. 90 Tablet 3 11/13/2023 Active Spironolactone 25 MG Oral Tablet (Aldactone)Indicati ons:Migraine variant, intractable Take 1 Tablet by mouth in the morning. 90 Tablet 3 11/14/2023 Active Hydroxychloroquine Sulfate 200 MG Oral Tablet (Plaquenil)Indicati ons:Polyarthritis Take 1 Tablet by mouth in the morning and 1 Tablet before bedtime. 180 Tablet 3 11/21/2023 Active predniSONE 10 MG Oral Tablet (Deltasone)Indicati ons:Polyarthritis Take 5 tablets by mouth for 2 days, 4 tabs for 2 days, 3 tabs for 2 days, 2 tabs for 2 days 1 tab for 2 days 30 Tablet 12/06/2023 Active HYDROcodone-Acetami nophen 5-325 MG Oral TabletIndications:P olyarthritis Take 1 Tablet by mouth every 8 hours as needed for Pain, Severe. 15 Tablet 12/13/2023 Active hydrOXYzine HCl 10 MG Oral Tablet (Atarax) Take 1 Tablet by mouth every 6 hours as needed for Anxiety. 60 Tablet 2 12/13/2023 01/12/2024 Active Hospital, Clinic, or Other Facility Administered Medication Ordered Dose Route Frequency Start Date End Date Status Vitamin B-12 (Cyanocobalamin) inj 1,000 mcgIndications:Vitamin B 12 deficiency 1000 mcg IM [id number] 11/28/2023 10/29/2024 Active documented as of this encounter (statuses as of 12/13/2023) Active Problems Problem Noted Date Diagnosed Date Panic disorder 12/13/2023 Essential tremor 12/13/2023 Tremor 12/13/2023 Polyarthritis 10/23/2023 Encounter for long-term (current) use of medicat ions 10/23/2023 Obesity, Class I, BMI 30.0-34.9 (see actual BMI) 03/29/2023 Perimenopausal disorder 11/03/2022 Major depressive disorder, recurrent episode, mo derate 09/11/2022 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 Pathology benign. MEDICATION USE AGREEMENT 04/25/2016 Overview: 04/25/16 Gastroesophageal reflux disease without esophagi tis 07/04/2007 documented as of this encounter (statuses as of 12/13/2023) Resolved Problems Problem Noted Date Diagnosed Date Resolved Date Excessive hair growth 11/03/20222022 Breast pain in female 11/03/20222022 Nephrostomy status 07/09/2017 8 Screening for diabetes mellitus 06/13/2017 08/02/2017 Influenza-like illness 05/28/201708/02 Mixed rhinitis 05/23/2016 08/28/2016 Hydronephrosis, right 01/18/20162016 Painful bladder spasm 01/18/20162016 Right flank pain 10/12/2015 08/28/2016 History of nephrolithiasis 10/12/2015 0 08/28/2016 History of kidney surgery 10/12/2015 H/O: hysterectomy 10/12/2015 08/28/2016 History of endometriosis 10/12/201507/2016 Lumbar spine strain 06/09/2015 01/18/20 16 Lumbar paraspinal muscle spasm 06/09/2015 01/18/2016 Back pain with right-sided sciatica 06/09/2015 01/18/2016 Idiopathic scoliosis 06/09/2015 023 Tension headache 04/07/2014 08/28/2016 Cough 12/30/2013 01/18/2016 Chronic rhinitis 12/30/2013 08/28/2016 Chronic sinusitis 12/30/2013 01/18/2016 Diarrhea 07/24/2013 01/18/2016 Abdominal pain 07/24/2013 01/18/2016 Nausea & vomiting 07/24/2013 01/18/2016 Lower urinary tract infectious disease 05/29/2013 01/18/2016 Overview: ICD-10 update of inactive term Severe back pain 05/29/2013 01/18/2016 Edema 05/19/2013 01/18/2016 UPJ (ureteropelvic junction) obstruction 04/17/2013 10/02/2017 Slow transit constipation 02/23/2012 Obstructive uropathy 02/23/2012 016 Anemia 02/23/2012 01/18/2016 Nephrolithiasis 02/23/2012 01/18/2016 Slow transit constipation 02/23/2012 Upper back strain 09/19/2011 01/18/2016 Spasm of muscle 09/19/2011 01/18/2016 Backache 08/18/2010 01/18/2016 HX OF PRIOR HYDRONEPHROSIS 08/18/2010 1 Dermatophytosis of foot 06/14/201012/25 Encounter for supervision of other normal 06/14/2010 01/18/2016 Overview: ICD-10 update of inactive term JOINT PAIN, KNEES 06/25/2008 01/18/2016 Lipoma 04/02/2008 06/25/2008 Overview: ICD-10 update of inactive term Nausea with vomiting 09/18/2007 009 Migraine without aura, intractable 09/18/2007 04/14/2019 Malaise and fatigue 07/04/2007 11/28/19 08 Syncope and collapse 01/01/2007 016 Headache 01/01/2007 06/25/2008 Overview: ICD-10 update of inactive term Polyneuropathy in other dise ases classified elsewhere 11/15/2006 01/18/2016 Overview: IMPROVED Organic sleep disorder 11/15/200601/17 PAIN IN LIMB, RIGHT DORSAL WRIST 03/01/2006 01/18/2016 ADVANCE DIRECTIVE INFORMATION 12/06/2004 01/18/2016 Overview: No, Advance Directive brochure given to patient at prior appointment. PHARYNGITIS CHRONIC 11/01/2004 11/16/19 07 Anxiety state 11/01/2004 01/18/2016 Esophageal reflux 11/01/2004 11/15/2006 BENIGN KELLY SKIN TRUNK 11/01/20042006 DENTAL INFECTION 02/29/2004 11/15/2006 Other dental caries 02/29/2004 11/16/19 07 ACUTE CYSTITIS 12/28/2003 11/15/2006 Acute nasopharyngitis 12/28/20032006 Motion sickness 09/16/2003 08/28/2016 REDNESS-DISCHARGE OF EYE 07/17/2003 Pain in or around eye 07/17/20032006 ACUTE URI NOS 03/18/2003 07/17/2003 ACUTE PHARYNGITIS 01/08/2003 07/17/2003 CONJUNCTIVITIS, LEFT 01/08/2003 004 ALLERGIC RHINITIS - MIXED TYPE 11/11/2002 05/23/2016 Chronic sinusitis 11/11/2002 07/17/2003 Deviated nasal septum 11/11/20022022 TINEA VERSICOLOR 10/06/2002 11/15/2006 Cervicalgia 09/01/2002 07/17/2003 Spasm of muscle 09/01/2002 07/17/2003 Major depressive disorder, r ecurrent episode, moderate 10/22/2001 04/14/2019 Hypoglycemia 09/03/2001 11/15/2006 DIFFICULTY CONCENTRATING 09/03/2001 Headache 07/27/1999 07/17/2003 Overview: ICD-10 update of inactive term Anemia 07/27/1999 07/17/2003 BACKACHE NOS 06/01/1999 07/17/2003 Hydronephrosis 01/18/2016 documented as of this encounter (statuses as of 12/13/2023) Immunizations Name Administration Dates Next Due COVID-19 mRNA, LNP-s, No Pre serve, 2-Dose Series (Pfizer) 04/08/2021,04/04/2020,03/15/2020 HEPATITIS B VACCINE, RECOMB, 20 MCG/ML, ADULT (HEPLISAV-B) 08/22/2022,07/17/2022 Seasonal Influenza, PF, 6 M & above, IM , (FluLaval or Fluzone) 01/31/2023,02/07/2022 Seasonal Influenza, QUAD, wi th Preserv, 6 mons & Above, 0.5 mL, IM 01/29/2017 Seasonal Influenza, Quadriva lent, No Preserve, IM 01/13/2021,02/06/2020,01/21/2019,2017,01/22/2017 Seasonal Influenza, Trivalen t, (IIV3), with Preserv, (Fluzone) 02/01/2016,01/26/2015,12/10/2008,2008 TD, Preservative Free 04/17/2018 TDAP, Age 7 and older, IM (Adacel) 11/28/2007 documented as of this encounter Social History Tobacco Use Types Packs/Day Years Used Date Smoking Tobacco: Never Passive Smoke Exposure: Past Smokeless Tobacco: Never Comments:Parents smoke in ho me Alcohol Use Standard Drinks/Week Comments Yes 0 (1 standard drink = 0.6 oz pur e alcohol) two a month PHQ-2 Answer Date Recorded PHQ Adult Total Score 0 06/25/2023 Hunger Vital Sign Answer Date Recorded Within the past 12 months, y ou worried that your food would run out before you got the money to buy more. Never true 09/12/19 23 Within the past 12 months, t he food you bought just didn't last and you didn't have money to get more. Never true 09/11/2022 Childcare Answer Date Recorded Do you feel overwhelmed with taking care of a child, family member or friend? No 09/11/2022 Does your family need help f inding childcare? (Household - for ages 0-17 years) Not on file 09/11/2022 Clothing Answer Date Recorded Have you been unable to get clothing when it was really needed? No 09/11/2022 Is your family able to get c lothes or diapers when needed? (Household - for ages 0-17 years) Not on file 09/11/2022 Personal Safety Answer Date Recorded Do you feel unsafe or have concerns for your saf ety? No 09/11/2022 Do you have concerns for you r family's safety? (Household - for ages 0-17 years) Not on file 09/11/2022 Utilities Answer Date Recorded Do you have trouble paying y our heating, water, or electric bill? (Adult - for ages 18 years and over) Not on file 09/13/2023 Is your family able to pay t he heat, water, or electric bill? (Household - for ages 0-17 years) Not on file 09/13/2023 Does your family have access to good internet? (Household - for ages 0-17 years) Not on file 09/13/2023 Employment Status Answer Date Recorded Are you unemployed or without regular income? No 09/11/2022 Does the household have a re gular source of income? (Household - for ages 0-17 years) Not on file 09/11/2022 Social Connections Answer Date Recorded How often do you feel lonely or isolated from those around you? (Adult - for ages 18 years and over) Not on file 09/13/2023 Financial Resource Strain Answer Date R ecorded Do you have any trouble payi ng for your medications, or do you think you might in the future? No 09/11/2022 Does your family have troubl e paying for medicine? (Household - for ages 0-17 years) Not on file 09/11/2022 Transportation Needs Answer Date Record ed READ ONLY Do you have troubl e getting a ride to medical visits or work? Never True 09/11/2022 Does your family have a hard time getting a ride to doctors visits? (Household - for ages 0-17 years) Not on file 09/11/2022 Has lack of transportation k ept you from medical appointments, meetings, work, or from getting things needed for daily living? Check all that apply. (Adult - for ages 18 years and over) Not on file 09/11/2022 Do you (or your family) have trouble finding or paying for a ride (transportation)? (Household - for ages 0-17 years) Not on file 09/11/2022 Housing Stability Answer Date Recorded Do you currently live in a s helter or have no steady place to sleep at night? No 09/11/2022 READ ONLY Do you think you a re at risk of becoming homeless? No 09/11/2022 Does your family worry about paying for your home or becoming homeless? (Household - for ages 0-17 years) Not on file 0 09/11/2022 Are you homeless or worried that you might be in the future? (Adult - for ages 18 years and over) Not on file Are you (or your family) janel eless or worried that you might be in the future? (Household - for ages 0-17 years) Not on file 06 / Food Insecurity Answer Date Recorded Do you need food for this week? No 09/11/2022 Are you able to get enough f ood for your family? (Household - for ages 0-17 years) Not on file 09/11/2022 Does your family need food t his week? (Household - for ages 0-17 years) Not on file 09/11/2022 Do you always have enough fo od for your family? (Household - for ages 0-17 years) Not on file 09/11/2022 Sex and Gender Information Value Date Recorded Sex Assigned at Female 06/21/2018 1:01 PM EDT Gender Identity Female 06/21/2018 1:01 PM EDT Sexual Orientation Straight 06/21/2018 1: 01 PM EDT Job Start Date Occupation Industry Not on file Not on file Not on file documented as of this encounter Functional Status Functional Status Response Date of Assess ment Are you deaf or do you have serious difficulty h earing? No 09/19/2017 Are you blind or do you have serious difficulty seeing, even when wearing glasses? No 09/19/2017 Do you have serious difficul ty walking or climbing stairs? (5 years old or older) No 09/19/2017 Do you have difficulty dress ing or bathing? (5 years old or older) No 09/19/2017 Because of a physical, menta l, or emotional condition, do you have difficulty doing errands alone such as visiting a doctor s office or shopping? (15 years old or older) No 09/20/19 18 Cognitive Status Response Date of Assessm ent Because of a physical, menta l, or emotional condition, do you have serious difficulty concentrating, remembering, or making decisions? (5 years old or older) No 09/19/2017 documented as of this encounter Progress Notes * Justina Garrett CRNP - 12/13/2023 4:09 PM EDT Acute Telemed Family Medicine Visit Patient location: HOME. I was in a hospital or clinic location. After connecting through televideo,patient was verified with two unique identifiers. Patient (or authorized legal vaccine customer representative) was then informed that this was a Telemedicine visit and being conducted confidentially over secure lines. Methods to assure confidentiality were taken. Patient acknowledged consent and understanding of pr ivacy and security of the Telemedicine visit. The patient agreed to participate. CC:PANIC History of Present Illness: Gabbi Callaway is a 42 year old female presenting with excessive stress. Recently moved out of home, signed divorce. Regina night she felt tremors, feeling sob. Never had huge change in life before.Tremor is continuous. Feels more emotional She is taking prednisone for polyarthritis.On plaquenil. She is flaring with increased stress. 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 Employer: [employer] Comment: [employer] now, Dermatology in the past Tobacco Use Smoking status: Never Passive exposure: Past Smokeless tobacco: Never Tobacco comments: Parents smoke in home Vaping Use Vaping status: Never Used Substance and Sexual Activity Alcohol use: Yes Comment: two a month Drug use: No Sexual activity: Yes Partners: Male control/protection: I.U.D., Injection Other Topics Concern Service Not Asked Blood Transfusions Not Asked Caffeine Concern Not Asked Occupational Exposure Not Asked Hobby Hazards Not Asked Sleep Concern Not Asked Stress Concern Not Asked Weight Concern Not Asked Special Diet Not Asked Back Care Not Asked Exercise Not Asked Bike Helmet Not Asked Seat Belt Not Asked Self-Exams Not Asked Social History Narrative 04/18/00--Lives with parents, 9 month baby son. Just broke up with her boyfriend of 2 years. 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 (Adult - for ages 18 years and over): No Does your family have trouble paying for medicine? (Household - for ages 0-17 years): Not on file Food Insecurity: No Food Insecurity (09/11/2022) Food Insecurity Do you need food for this week? (Adult - for ages 18 years and over): No Are you able to get enough food for your family? (Household - for ages 0-17 years): Not on file Does your family need food this week? (Household - for ages 0-17 years): Not on file Do you always have enough food for your family? (Household - for ages 0-17 years): Not on file Transportation Needs: No Transportation Needs (09/11/2022) Transportation Needs Do you have trouble getting a ride to medical visits or work? (Adult - for ages 18 years and over):Never True Does your family have a hard time getting a ride to doctors visits? (Household - for ages 0-17 years): Not on file Has lack of transportation kept you from medical appointments, meetings, work, or from getting things needed for daily living? Check all that apply. (Adult - for ages 18 years and over): Not on file Do you (or your family) have trouble finding or paying for a ride (transportation)? (Household - for ages 0-17 years): Not on file Social Connections: Unknown (09/13/2023) Social Connections How often do you feel lonely or isolated from those around you? (Adult - for ages 18 years and over): Not on file Housing Stability: Low Risk (09/11/2022) Housing Stability Do you currently live in a [place] [facility] or have no steady place to sleep at night? (Adult - for ages 18 years and over): No Do you think you are at risk of becoming homeless? (Adult - for ages 18 years and over): No Does your family worry about paying for your home or becoming homeless? (Household - for ages 0-17 years): Not on file Are you homeless or worried that you might be in the future? (Adult - for ages 18 years and over): Not on file Are you (or your family) homeless or worried that you might be in the future? (Household - for ages0-17 years): Not on file PM: Past Medical History: Diagnosis Date Endometriosis Esophageal reflux Hydronephrosis R. side IUD (intrauterine device) in place 12/24/2012 MARLENE Paredes Major depressive disorder, recurrent episode, moderate (HCC) MENINGITIS DUE TO VIRUSES NOT ELSEWHERE CLASSIFIED 2000? in hospital Migraine without aura, intractable Obesity, Class I, BMI 30.0-34.9 (see actual BMI) 03/29/2023 Pain in joint involving lower leg Polyneuropathy in other diseases classified elsewhere (HCC) S/P GARRETT (total abdominal hysterectomy) Syncope and collapse Ureteropelvic junction (UPJ) obstruction, right s/p right robotic pyeloplasty 02/13/12 and 05/13/2013 and 05/13/15. Past Surgical History: Procedure Laterality Date BACK/FLANK SUBQ TUMOR REMOVAL, UNDER 3 CM 2008 BIOPSY OF BREAST, OPEN Right benign excisional COLPSCPY CERVIX W/LOOP ELECT CYSTO/URETERO W/UP STRICTURE N/A 01/10/2016 CYSTOURETHROSCOPY URETEROSCOPY URETEROPELVIC STRICTURE TREATMENT performed by Luis Enrique Macdonald MD [facility] CYSTOSCOPY 04/10/2013 stent removal CYSTOSCOPY/INSERTION OF STENT 03/14/2013 CYSTOURETHROSCOPY WITH INSERTION URETERAL STENT performed by Fannie Cloud MD at OR [facility] CYSTOSCOPY/INSERTION OF STENT 05/13/2013 CYSTOURETHROSCOPY WITH INSERTION URETERAL STENT performed by Luis Enrique Macdonald MD at [facility] DENTAL SURGERY PROCEDURE NEC wisdom teeth EGD, FLEXIBLE, DIAGNOSTIC EGD, FLEXIBLE, DIAGNOSTIC 11/27/2023 ESOPHAGOGASTRODUODENOSCOPY (EGD), FLEXIBLE, TRANSORAL, DIAGNOSTIC performed by Siri Reeves DO at ENDOSCOPY [facility] GRAFT EAR CARTILAGE TO NOSE/EAR N/A 02/07/2022 GRAFT EAR CARTILAGE TO EAR OR NOSE performed by Joslyn Rincon MD at OR [facility] INSERT URETERAL SUPPORT 1997, 1999 Ureteral Stent Placement LAP;W/HYSTERECTOMY 08/13/2015 LAPAROSCOPY DIAGNOSTIC Laparoscopy x 2 LAPAROSCOPY; CHOLECYSTECTOMY N/A 02/28/2019 LAPAROSCOPIC CHOLECYSTECTOMY performed by Ethan Gutierrez MD at OR [facility] LAPAROSCOPY;NEPHRECTOMY Right 09/19/2017 LAPAROSCOPIC NEPHRECTOMY PARTIAL URETERECTOMY performed by Luis Enrique Macdonald MD at OR [facility] LAPAROSCOPY;PYELOPLASTY 02/13/2012 Dr Lui LAPAROSCOPY;PYELOPLASTY 05/13/2013 ROBOTIC LAPAROSCOPIC PYELOPLASTY performed by Luis Enrique Macdonald MD at OR [facility] NASAL SEPTUM CARTILAGE FOR GRAFT N/A 02/07/2022 OBTAIN CARTILAGE GRAFT NASAL SEPTUM performed by Joslyn Rincon MD at OR [facility] PL[facility] NEPHROSTOMY CATHETER, PERC 10/18/2010 PERCUTANEOUS NEPHROSTOMY performed by LUDA ROWELL at RADIOLOGY [facility] RECONSTRUCTION OF NOSE/SEPTUM N/A 02/07/2022 RHINOPLASTY COMPLETE INCLUDING MAJOR SEPTAL REPAIR performed by Joslyn Rincon MD at OR [facility] REMOVAL OF TURBINATE BONES N/A 02/07/2022 EXCISION INFERIOR TURBINATE performed by Joslyn Rincon MD at OR [facility] REMOVE RIB CARTILAGE FOR GRAFT N/A 02/07/2022 OBTAIN CARTILAGE GRAFT COSTOCHONDRAL performed by Joslyn Rincon MD at OR [facility] TOTAL ABD HYSTERECTOMY W/WO REMOVAL OF TUBE(S) 2012 Current Outpatient Medications Medication Sig Dispense Refill HYDROcodone-Acetaminophen 5-325 MG Oral Tablet Take 1 Tablet by mouth every 8 hours as needed for Pain, Severe. 15 Tablet 0 predniSONE 10 MG Oral Tablet (Deltasone) Take 5 tablets by mouth for 2 days, 4 tabs for 2 days, 3 tabs for 2 days, 2 tabs for 2 days 1 tab for 2 days 30 Tablet 0 Hydroxychloroquine Sulfate 200 MG Oral Tablet (Plaquenil) Take 1 Tablet by mouth in the morning and1 Tablet before bedtime. 180 Tablet 3 Spironolactone 25 MG Oral Tablet (Aldactone) Take 1 Tablet by mouth in the morning. 90 Tablet 3 Citalopram Hydrobromide 40 MG Oral Tablet (CeleXA) Take 1 Tablet by mouth daily. 90 Tablet 3 Pantoprazole Sodium 40 MG Oral Tablet Delayed Release (Protonix) TAKE ONE TABLET BY MOUTH EVERY MORNING 90 Tablet 3 Fluorouracil 5 % External Cream (Efudex) Apply topically to affected area 2 times a day. Apply to affected area once per day as needed (Patient not taking: Reported on 11/16/2023) 40 g 0 Current Facility-Administered Medications Medication Dose Route Frequency Provider Last Rate Last Admin Vitamin B-12 (Cyanocobalamin) inj 1,000 mcg 1,000 mcg Intramuscular Q4 Weeks 1,000 mcg at 11/28/23 1332 Review of patient's allergies indicates: Allergen Reactions Adhesive Tape "like a burn" Morphine Sulfate Hives Other Allergy (See Comments) Rash Dermabond Adhesive Most Recent Immunizations Administered Date(s) Administered COVID-19 mRNA, LNP-s, No Preserve, 2-Dose Series ([employer]) 04/08/2021 DTP Vaccine 02/27/1986 Depo-Provera 05/01/2001 Diptheria/Tetanus (Adult) 11/10/1995 HEPATITIS B VACCINE, RECOMB, 20 MCG/ML, ADULT (HEPLISAV-B) 08/22/2022 Hepatitis B, 20+ yrs 10/17/2000 MMR - Measles/Mumps/Rubella Vaccine 04/18/1982 OPV - Polio Virus Vaccine (Oral) 02/27/1986 PPD 10/15/2000 Seasonal Influenza, PF, 6 M & above, IM , (FluLaval or Fluzone) 01/31/2023 Seasonal Influenza, QUAD, with Preserv, 6 mons & Above, 0.5 mL, IM 01/29/2017 Seasonal Influenza, Quadrivalent, No Preserve, IM 01/13/2021 Seasonal Influenza, Trivalent, (IIV3), with Preserv, (Fluzone) 02/01/2016 TD, Preservative Free 04/17/2018 TDAP, Age 7 and older, IM (Adacel) 11/28/2007 Review of Systems: Review of Systems Musculoskeletal: Positive for arthralgias, back pain and myalgias. Neurological: Positive for tremors. Psychiatric/Behavioral: Positive for dysphoric mood. The patient is nervous/anxious. Physical Exam: There were no vitals taken for this visit. Physical Exam HENT: Head: Normocephalic. Pulmonary: Effort: Pulmonary effort is normal. Neurological: General: No focal deficit present. Mental Status: She is alert and oriented to person, place, and time. Psychiatric: Mood and Affect: Mood is anxious. Affect is tearful. Behavior: Behavior normal. Thought Content: Thought content normal. Judgment: Judgment normal. Assessment and Plan: 1. Major depressive disorder, recurrent episode, moderate (HCC) Stable on celexa Under acute stress with divorce and move - RETURN TO WORK OR SCHOOL 2. Panic disorder ADD HYDROXIZINE 10 MG PRN - RETURN TO WORK OR SCHOOL 3. Tremor Suspected related to panic vs prednisone She is going to stop prednisone early - RETURN TO WORK OR SCHOOL I have advised the patient to call our office incase of any worsening or new symptoms. I spent a total of 20-29 minutes (exact time 20 mins) on the date of service in preparation, delivery, and documentation of the care provided to Gabbi Callaway excluding any time spent in the performance of separately billed services. Jorge Luis, EDWIN, LORIE [facility] Galindos documented in this encounter Plan of Treatment Upcoming Encounters Date Type Department Care Team (Late st Contact Info) Description 12/19/2023 5:30 PM EDT [facility] Only [facility] 132 [facility] AIMEE ROSAS [address] Nurse Wang Smith [address] [place] [address] A[place] ROSAS [address] 01/01/2024 2:00 PM EDT Telemedicine Psychology [facility] [address] [place] [id number] Mary Garcia PsyD [address] [place] [address] 01/18/2024 4:00 PM EDT [facility] 132 [facility] AIMEE CRANDALL [address] Nurse Wang Smith [address] [place], [place] [address]AIMEE MAC [address] 02/05/2024 7:30 PM EST PulmDiagnostic Sleep Lab, [facility] 400 [facility] [address] [facility], Sleep Med Night Sleep 400 [facility] BRITTANIAIMEE HERNANDEZ [address] 02/12/2024 11:20 AM EST Nutrition Services Nutrition & Weight Management, [facility] [address] Nila Montero RDN 132 [place] [address] 02/20/2024 5:30 PM EST Nurse Only Ancillary [facility] [address] Nurse Wang Smith [address] [place] [address] [place] [address] 02/27/2024 8:00 AM EST Office Visit Rheumatology [address] [place] [address] Jai Gabriel MD [address] [place] [address] [place] [address] 03/21/2024 4:00 PM EST Nurse Only [facility] [address] [facility] [address] Nurse Wang Smith [address] [place] [address] Health Maintenance Due Date Last Done Comments Pneumococcal Vaccine: Pediatrics (0 to 5 Years) and At-Risk Patients (6 to 64 Years) (1 of 2 - PCV) 1986 Mammogram 11/02/2023 11/01/2022, 0811/2022, 01/01/2020, Additional history exists COVID-19 Vaccine ( season) 2023 04/08/2021, 04/04/2020, 03/15/2020 Influenza Vaccine (FLU shot) (#1) 2023 01/31/2023, 02/07/2022, 01/13/2021, Additional history exists Depression Monitoring 06/24/2024 06/25/2023 Diabetes Screening 11/12/2026 11/13/2023, 0 11/13/2023, 07/30/2023, Additional history exists DTap/Tdap Vaccines (8 - Td or Tdap) 04/17/2028 04/17/2018, 11/28/2007, 11/10/1995, Additional history exists Lipid Panel 11/12/2028 11/13/2023, 0910/2022, 08/20/2020, Additional history exists Hepatitis B Vaccine Completed 08/22/2022, 07/17/2022, 10/17/2000 HIV Screening Discontinued HPV (Gardasil) Vaccine Aged Out No lo nger eligible based on patient's age to complete this topic Hepatitis C Screening Discontinued MENINGOCOCCAL (MENACTRA/MENVEO) Aged Out No longer eligible based on patient's age to complete this topic documented as of this encounter Medical Devices Implanted Type Area Registered Veterinary Technician Device Identifier Shelf Expiration Date Model / Serial / Lot Ureteral Stent (Inlay [place]) Implanted:Qty: 1 on 03/14/2013 at OR [facility] Right: Ureter 06/23/2017 / [id number] / [id number] documented as of this encounter Visit Diagnoses Diagnosis Major depressive disorder, recurrent episode, moderate (HCC)- Primary Major depressive disorder, recurrent episode, moderate Panic disorder Panic disorder without agoraphobia Tremor Abnormal involuntary movements documented in this encounter Advance Directives Documents on File Type Date Recorded 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 * Full Code Date Activated Date Inactivated Comments 09/19/2017 12:31 PM 09/21/2017 4:47 PM This order reflects the patients wishes and were consensually agreed upon. * Full Code Date Activated Date Inactivated Comments 07/03/2017 6:09 PM 07/04/2017 4:30 PM Question Answer Comments Discussion of Advance Directives occurred with: Patient Does the patient have a Living Will? No Does the patient have Health Care Power of Attor carlos? No * Full Code Date Activated Date Inactivated Comments 01/10/2016 11:38 AM 01/11/2016 6:21 PM This orde r reflects the patients wishes and were consensually agreed upon. * Full Code Date Activated Date Inactivated Comments 05/13/2013 5:28 PM 05/15/2013 4:50 PM This order r eflects the patients wishes and were consensually agreed upon. Question Answer Comments Discussion of Advance Directives occurred with: Not Discussed Does the patient have a Living Will? No Does the patient have Health Care Power of Attor carlos? No Healthcare Agents on File Name Relationship Healthcare Agent Relationshi p Communication Rico Cesia Spouse Health Care Agent Care Teams General Engineering Teacher Relationship Specialty Start Date End Date July, Rob Shelton MD [address] [place] [address] PCP - General Family Medicine 10/05/23 documented as of this encounter
--- OUTSIDE RECORDS SUMMARY | 2023-12-20 06:18 | External Medical Summary | Summary of Care ---
Author Name Unknown Organization [facility] Address [address] [facility] [address] Phone [phone] Care Team Providers Care Reading Interventionist Name Role Phone Rob Mackenzie MD Primary Care Provider [phone] Reason for Referral * Precert (Diagnostic Medical) (Within 10 days (routine)) - Authorized Specialty Diagnoses / Procedures Referred By Contac t Referred To Contact Sleep Disorders Diagnoses Snoring Nocturia Weight gain, abnormal BMI 37.0-37.9, adult Procedures SLEEP STUDY, W/O CPAP Elizabeth White CRNP [address] [place] [address] Referral ID Status Reason Start Date Expiration Date V isits Requested Visits Authorized [id number] Authorized 12/06/2023 999 999 * Precert (Diagnostic Medical) (Within 10 days (routine)) - Authorized Specialty Diagnoses / Procedures Referred By Contac t Referred To Contact Sleep Disorders Diagnoses Snoring Nocturia Weight gain, abnormal BMI 37.0-37.9, adult Procedures SLEEP STUDY, W/ CPAP (TREATMENT SETTINGS) Elizabeth White CRNP [address] [place] [address] Referral ID Status Reason Start Date Expiration Date V isits Requested Visits Authorized [id number] Authorized 12/06/2023 999 999 Reason for Visit * Reason Comments NEW PATIENT New sleep. Referred by weight management. Denies snoring. * Evaluate & Treat - Unlimited Visits (Within 10 days (routine)) - Authorized Specialty Diagnoses / Procedures Referred By Sanjana denise Referred To Contact Sleep Medicine / Sleep Disorders Diagnoses Class 2 severe obesity due to excess calories with serious comorbidity and body mass index (BMI) of 36.0 to 36.9 in adult ([facility]) Joslyn Joyner PA-C [address] [place] [address] Referral ID Status Reason Start Date Expiration Date Visits Requested Visits Authorized [id number] Authorized Specialty Services Required 11/13/2023 2 2 Encounter Details Date Type Department Care Team (Late st Contact Info) Description 12/06/2023 8:00 AM EDT Office Visit Sleep Disorders Ctr [facility] [address] [place] [phone] Elizabeth White CRNP [address] [place] [address] Snoring*; Nocturia; Weight gain, abnormal; BMI 37.0-37.9, adult Allergies Active Allergy Reactions Criticality Noted Date Comments Adhesive Tape 11/15/2006 "like a burn" Morphine Sulfate Hives 12/30/2009 Other Allergy (See Comments) Rash 018 Dermabond Adhesive documented as of this encounter (statuses as of 12/06/2023) Medications Medication Sig Dispensed Refills Start Date [...] before bedtime. 180 Tablet 3 11/21/2023 Active HYDROcodone-Acetami nophen 5-325 MG Oral TabletIndications:P olyarthritis Take 1 Tablet by mouth every 8 hours as needed for Pain, Severe. 15 Tablet 11/23/2023 Active predniSONE 10 MG Oral Tablet (Deltasone)Indicati ons:Polyarthritis Take 5 tablets by mouth for 2 days, 4 tabs for 2 days, 3 tabs for 2 days, 2 tabs for 2 days 1 tab for 2 days 30 Tablet 12/06/2023 Active Hospital, Clinic, or Other Facility Administered Medication Ordered Dose Route Frequency Start Date End Date Status Vitamin B-12 (Cyanocobalamin) inj 1,000 mcgIndications:Vitamin B 12 deficiency 1000 mcg IM [id number] 11/28/2023 10/29/2024 Active documented as of this encounter (statuses as of 12/06/2023) Active Problems Problem Noted Date Diagnosed Date Polyarthritis 10/23/2023 Encounter for long-term (current) use of medicat ions 10/23/2023 Obesity, Class I, BMI 30.0-34.9 (see actual BMI) 03/29/2023 Perimenopausal disorder 11/03/2022 Major depressive disorder, recurrent episode, mo derate 09/11/2022 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 Pathology benign. MEDICATION USE AGREEMENT 04/25/2016 Overview: 04/25/16 Gastroesophageal reflux disease without esophagi tis 07/04/2007 documented as of this encounter (statuses as of 12/06/2023) Resolved Problems Problem Noted Date Diagnosed Date [...] as of this encounter (statuses as of 12/06/2023) Immunizations Name Administration Dates Next Due COVID-19 [...] for ages 0-17 years) Not on file Food Insecurity Answer Date Recorded Do you [...] on file documented as of this encounter Last Filed Vital Signs Vital Sign Reading Time Taken Comments Blood Pressure 120/80 12/06/2023 7:55 AM EDT Pulse 96 12/06/2023 7:55 AM EDT Temperature 36.9 C (98.5 F) 12/06/2023 7:55 AM ED T Respiratory Rate 16 12/06/2023 7:55 AM EDT Oxygen Saturation 98% 12/06/2023 7:55 AM EDT Inhaled Oxygen Concentration - - Weight 104.8 kg (231 lb) 12/06/2023 7:55 AM EDT Height 167.6 cm (5' 6") 12/06/2023 7:55 AM EDT Body Mass Index 37.28 12/06/2023 7:55 AM EDT documented in this encounter Functional Status Functional Status Response [...] No 09/19/2017 documented as of this encounter Patient Instructions * Patient Instructions* Elizabeth White CRNP - 12/06/2023 8:44 AM EDT OBSTRUCTIVE SLEEP APNEA You are being evaluated for obstructive sleep apnea. Obstructive sleep apnea is when someone has difficulties with breathing only during sleep. This typically happens without the individual being aware they are having breathing issues. Obstructive sleep apnea is very common. It can be seen in kids and adults. It can cause symptoms of excessive daytime sleepiness, fatigue, morning headaches, and poor memory and cognition. It can also lead to difficulties at work or school and motor vehicle accidents. If left untreated, it puts people at risk for heart attacks, strokes, and diabetes, among other things. Obstructive sleep apnea is diagnosed through either an in-lab sleep study or a home sleep test. If a home sleep test is done and shows inconclusive results, an in-lab study may be recommended. At [facility], a trained equipment maintenance technician will be present to administer and monitor the test. They willbe putting sensors on you that monitor your brain waves, breathing, movements, and respiratory effort. None of the sensors should be painful, though they may be annoying or uncomfortable to some patients when they are trying to sleep. [facility] Sleep Labs are accredited by the [place] [employer] (AASM), as they meet or exceed all standards for professional quality sleep medicine care. - Plan to get enough sleep at night. Most adults do best with 7-8 hours a night. - Exercise daily! Aim for 30 minutes per day of moderate-intensity exercise (enough to get your heart rate up and break out into a light sweat). - Losing even a little bit of weight can reduce the severity of sleep apnea and helps overall sleep. - Don't drive when you are sleepy/drowsy. If you become drowsy while driving, door puller, take a quick nap, get some caffeine, or get someone else to drive. More information can be obtained at: SleepEducation.org It may take 2-3 weeks to get the results. Please arrange a follow-up appointment to discuss your test results. documented in this encounter Progress Notes * Elizabeth White CRNP - 12/06/2023 8:05 AM EDT [facility] SLEEP MEDICINE CONSULTATION Ms. Gabbi Callaway is a 42 year old female with history of GERD, MDD, polyarthritis, BMI 37.3 seen atthe request of Joslyn Joyner PA-C for evaluation of possible sleep disordered breathing. She is working towards surgical weight loss and denies any concerns regarding her sleep. Her reports heavy breathing at night. She has been using an kellen that records snoring and played two clips for me where vibratory snoring was evident. Gabbi denies daytime sleepiness or fatigue. Review of sleep symptoms ("+" indicates reports, "-" indicates denies): (+) Snoring - mild intermittent, hx of deviated septum repair (-) Witnessed apneas (-) Nocturnal choking or gasping (+) Nocturnal gastroesophageal reflux- "all the time" despite PPI use (+) Nocturia (-) Dry mouth on waking (-) Morning headaches (-) Non-restorative sleep (-) Daytime sleepiness or fatigue (-) Symptoms of restless legs syndrome (-) Abnormal sleep behaviors including dream enactment or sleep walking (-) Difficulty with memory or concentration Bedroom environment: Lives with and son. Sleeps in bed apart from . Right side sleeper. 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 Sitting and reading Slight chance of dozing Watching TV Slight chance of dozing Sitting inactive in a public place, such as a theater or meeting No chance of dozing As a passenger in a car for an hour without a break No chance of dozing Lying down to rest in the afternoon when circumstances permit No chance of dozing When sitting and talking to someone No chance of dozing When sitting quietly after lunch without alcohol No chance of dozing In a car, while stopped for a few minutes in traffic No chance of dozing Score (range: 0 - 24) 2 Functional Outcomes Of Sleep Question 12/04/2023 2:10 PM EDT - Filed by Patient Please complete the following questions. Do you have difficulty concentrating because you are sleepy or tired? No Do you have difficulty remembering things because you are sleepy or tired? No Do you have difficulty operating a motor vehicle for short distances (less than 100 miles) because you become sleepy? No Do you have difficulty operating a motor vehicle for long distances (more than 100 miles) because you become sleepy? No Do you have difficulty visiting family or friends in their home because you become sleepy or tired?No Has your relationship with family, friends, or work colleagues been affected because you are sleepyor tired? No Do you have difficulty watching a movie or video because you become sleepy or tired? No Do you have difficulty being as active as you want to be in the evening because you are tired or sleepy? Yes, a little Do you have difficulty being as active as you want to be in the morning because you are tired or sleepy? No Has your mood been affected because you are sleepy or tired? No Score (range: 10 - 40) 39 Medical History: Patient Active Problem List Diagnosis Gastroesophageal reflux disease without esophagitis MEDICATION USE AGREEMENT S/p nephrectomy Major depressive disorder, recurrent episode, moderate (HCC) Perimenopausal disorder Obesity, Class I, BMI 30.0-34.9 (see actual BMI) Polyarthritis Encounter for long-term (current) use of medications Surgical History: Past Surgical History: Procedure Laterality Date BACK/FLANK SUBQ TUMOR REMOVAL, UNDER 3 CM 2009 BIOPSY OF BREAST, OPEN Right benign excisional COLPSCPY CERVIX W/LOOP ELECT CYSTO/URETERO W/UP STRICTURE N/A 01/10/2016 CYSTOURETHROSCOPY URETEROSCOPY URETEROPELVIC STRICTURE TREATMENT performed by Luis Enrique Macdonald MD [facility] CYSTOSCOPY 04/10/2013 stent removal CYSTOSCOPY/INSERTION OF STENT 03/14/2013 CYSTOURETHROSCOPY WITH INSERTION URETERAL STENT performed by Fannie Cloud MD at OR [facility] CYSTOSCOPY/INSERTION OF STENT 05/13/2013 CYSTOURETHROSCOPY WITH INSERTION URETERAL STENT performed by Luis Enrique Macdonald MD at OR [facility] DENTAL SURGERY PROCEDURE NEC wisdom teeth EGD, FLEXIBLE, DIAGNOSTIC EGD, FLEXIBLE, DIAGNOSTIC 11/27/2023 ESOPHAGOGASTRODUODENOSCOPY (EGD), FLEXIBLE, TRANSORAL, DIAGNOSTIC performed by Siri Reeves DO at ENDOSCOPY [facility] GRAFT EAR CARTILAGE TO NOSE/EAR N/A 02/07/2022 GRAFT EAR CARTILAGE TO EAR OR NOSE performed by Joslyn Rincon MD at OR [facility] INSERT URETERAL SUPPORT 1997, 1999 Ureteral Stent Placement LAP;W/HYSTERECTOMY 08/13/2015 LAPAROSCOPY DIAGNOSTIC Laparoscopy x 2 LAPAROSCOPY; CHOLECYSTECTOMY N/A 02/28/2019 LAPAROSCOPIC CHOLECYSTECTOMY performed by Ethan Gutierrez MD at OR [facility] LAPAROSCOPY;NEPHRECTOMY Right 09/19/2017 LAPAROSCOPIC NEPHRECTOMY PARTIAL URETERECTOMY performed by Luis Enrique Macdonald MD at OR [facility] LAPAROSCOPY;PYELOPLASTY 02/13/2012 Dr Lui LAPAROSCOPY;PYELOPLASTY 05/13/2013 ROBOTIC LAPAROSCOPIC PYELOPLASTY performed by Luis Enrique Macdonald MD at OR [facility] NASAL SEPTUM CARTILAGE FOR GRAFT N/A 02/07/2022 OBTAIN CARTILAGE GRAFT NASAL SEPTUM performed by Joslyn Rincon MD at OR [facility] NEPHROSTOMY CATHETER, PERC 10/18/2010 PERCUTANEOUS NEPHROSTOMY performed by LUDA ROWELL at RADIOLOGY [facility] RECONSTRUCTION OF NOSE/SEPTUM N/A 02/07/2022 RHINOPLASTY COMPLETE [...] HYSTERECTOMY W/WO REMOVAL OF TUBE(S) 2012 Current Medications: Current Outpatient Medications Medication Sig Dispense Refill predniSONE 10 MG Oral Tablet (Deltasone) Take 5 tablets by mouth for 2 days, 4 tabs for 2 days, 3 tabs for 2 days, 2 tabs for 2 days 1 tab for 2 days 30 Tablet 0 HYDROcodone-Acetaminophen 5-325 MG Oral Tablet Take 1 Tablet by mouth every 8 hours as needed for Pain, Severe. 15 Tablet 0 Hydroxychloroquine Sulfate 200 MG Oral [...] Q4 Weeks 1,000 mcg at 11/28/23 1332 Social History: Caffeine: coffee x1 with 3 espresso Alcohol use: none in months, socially Nicotine use: denies Illicit drug use: denies Routine exercise: gym- strength training Family History: Family history of sleep related disorders: father with HECTOR Review of Systems Constitutional: Negative for fatigue. Weight increase this year HENT: Negative for congestion and postnasal drip. Respiratory: Positive for shortness of breath (with exertion within the past year). Cardiovascular: Negative for palpitations and leg swelling (intermittent with certain medications). Gets chest heaviness with exertion Gastrointestinal: Daily JAI symptoms Musculoskeletal: Positive for arthralgias (worsening). Negative for back pain and neck pain. Pain impacts sleep Allergic/Immunologic: Negative for environmental allergies. Physical Exam: BP 120/80 | Pulse 96 | Temp 36.9 C (98.5 F) (Tympanic) | Resp 16 | Ht 1.676 m (5' 6") | Wt 104.8 kg (231 lb) | SpO2 98% | BMI 37.28 kg/m | BSA 2.21 m Constitutional: No acute distress, accompanied by self Nose: Normal external appearance. Oral: good dentition, redundant soft palate, uvula normal, Mallampati 4, tonsils not enlarged Mandible: No retrognathia Neck: Circumference 13 inches Chest: Normal respiratory effort at rest, clear lung garcia Cardiac: Regular rate and rhythm Neuro: Alert, oriented, fluent/clear speech Psych: Appropriate mood and affect. Component Latest Ref Rng 11/13/2023 CO2 22 - 32 mmol/L 24 Impression/Recommendations: 42 year old female with history of GERD, MDD, polyarthritis, BMI 37.3. At risk for HECTOR. STOP-Bang 2(snoring, BMI >35), nocturia (2-3x/night) and nocturnal JAI symptoms. - Discussed the pathophysiology, implications on short- and long-term health, diagnostic evaluation, and likely treatment options of HECTOR - Schedule an overnight PSG - split night protocol if meets criteria. In-lab study recommended due to patient not being a high probability for sleep apnea. - Discussed the relationship between weight and sleep apnea. Sleep apnea may improve with weight loss. - Avoid driving or engaging in any activity that requires full alertness if feeling sleepy, drowsy or otherwise impaired. [facility] with return to clinic as needed. LORIE Aguayo Pulmonary [facility] Sleep Medicine [facility] I spent a total of 40-54 minutes (exact time 50 mins) on the date of service in preparation, delivery, and documentation of the care provided to Gabbi Callaway excluding any time spent in the performance of separately billed services or time spent by another provider/QHP. documented in this encounter Nursing Notes * Hallie Kiran LPN - 12/06/2023 7:56 AM EDT Chief Complaint Patient presents with NEW PATIENT New sleep. Referred by weight management. Denies snoring. Neck: 13". Flu Vaccine Questionnaire Question 11/29/2023 7:26 AM EDT - Filed by Patient Get your flu shot at your upcoming appointment. Please select one of the options below. I don't want the flu shot [place] Sleepiness Scale Question 12/04/2023 2:08 PM EDT - Filed by Patient What is the chance you will doze off in the following situation? Sitting and reading Slight chance of dozing Watching TV Slight chance of dozing Sitting inactive in a public place, such as a theater or meeting No chance of dozing As a passenger in a car for an hour without a break No chance of dozing Lying down to rest in the afternoon when circumstances permit No chance of dozing When sitting and talking to someone No chance of dozing When sitting quietly after lunch without alcohol No chance of dozing In a car, while stopped for a few minutes in traffic No chance of dozing Score (range: 0 - 24) 2 Functional Outcomes Of Sleep Question 12/04/2023 2:10 PM EDT - Filed by Patient Please complete the following questions. Do you have difficulty concentrating because you are sleepy or tired? No Do you have difficulty remembering things because you are sleepy or tired? No Do you have difficulty operating a motor vehicle for short distances (less than 100 miles) because you become sleepy? No Do you have difficulty operating a motor vehicle for long distances (more than 100 miles) because you become sleepy? No Do you have difficulty visiting family or friends in their home because you become sleepy or tired?No Has your relationship with family, friends, or work colleagues been affected because you are sleepyor tired? No Do you have difficulty watching a movie or video because you become sleepy or tired? No Do you have difficulty being as active as you want to be in the evening because you are tired or sleepy? Yes, a little Do you have difficulty being as active as you want to be in the morning because you are tired or sleepy? No Has your mood been affected because you are sleepy or tired? No Score (range: 10 - 40) 39 Travel Screening Question 12/06/2023 7:49 AM EDT - Filed by Patient Do you have any of the following new or worsening symptoms? None of these Have you recently been in contact with someone who was sick? No / Unsure documented in this encounter Plan of Treatment Upcoming Encounters Date Type Department Care Team (Late st Contact Info) Description 12/19/2023 5:30 PM EDT Nurse Only Ancillary Margarita Smith [place] [address] [facility] [place] [address] Nurse Wang Smith [address] [facility] [place] [address] 01/01/2024 2:00 PM EDT Telemedicine Psychology Ajay Malcolm [address] [place] [address] Mary Garcia, PsyD [address] [place] [address] 01/18/2024 4:00 PM EDT Nurse Only Ancillary [address] [address] Luis Nurse Wang Burleson [address] [place] [address] 02/05/2024 7:30 PM EST PulmDiagnostic Sleep Lab, [facility] [address] [place] [address] [facility], Sleep Med Night Sleep [address], [place] [id number] 02/12/2024 11:20 AM EST Nutrition Services Nutrition & Weight Management, [address] [address] Nila Montero RDN [address] [place] [address] 02/20/2024 5:30 PM EST Nurse Only Ancillary [address] [place] [address] Nurse Wang Smith [address] [place] [address] 02/27/2024 8:00 AM EST Office Visit Rheumatology [place] [address] Miguel Rodgers [place] [address] Jai Gabriel MD [address] [place] [address] [place] [address] 03/21/2024 4:00 PM EST Nurse Only Ancillary [address] [place] [address] SmithNurse Wang nunez [address] [facility] [place] [address] Scheduled Orders Name Type Priority Associated Diagnoses Orde r Schedule SLEEP STUDY, W/ CPAP (TREATMENT SETTINGS) Procedures Routine Snoring Nocturia Weight gain, abnormal BMI 37.0-37.9, adult Ordered: 12/06/2023 SLEEP STUDY, W/O CPAP Procedures Routine Snoring Nocturia Weight gain, abnormal BMI 37.0-37.9, adult Ordered: 12/06/2023 Health Maintenance Due Date Last Done Comments Pneumococcal Vaccine: Pediatrics (0 to 5 Years) and At-Risk Patients (6 to 64 Years) (1 of 2 - PCV) 1986 Mammogram 11/02/2023 11/01/2022, 11/2022, 01/01/2020, Additional history exists COVID-19 Vaccine ( season) 2023 04/08/2021, 04/04/2020, 03/15/2020 Influenza Vaccine (FLU shot) (#1) 2023 01/31/2023, 02/07/2022, 01/13/2021, Additional history exists Depression Monitoring 06/24/2024 06/25/2023 Diabetes Screening 11/12/2026 11/13/2023, 0 11/13/2023, 07/30/2023, Additional history exists DTap/Tdap Vaccines (8 - Td or Tdap) 04/17/2028 04/17/2018, 11/28/2007, 11/10/1995, Additional history exists Lipid Panel 11/12/2028 11/13/2023, 10/2022, 08/20/2020, Additional history exists Hepatitis B Vaccine Completed 08/22/2022, 07/17/2022, 10/17/2000 HIV Screening Discontinued HPV (Gardasil) Vaccine Aged Out No lo nger eligible based on patient's age to complete this topic Hepatitis C Screening Discontinued MENINGOCOCCAL (MENACTRA/MENVEO) Aged Out No longer eligible based on patient's age to complete this topic documented as of this encounter Medical Devices Implanted Type Area Body Component Engineer Device Identifier Shelf Expiration Date Model / Serial / Lot Ureteral Stent ([place]) Implanted:Qty: 1 on 03/14/2013 at OR [facility] Right: Ureter 06/23/2017 / [id number] / [id number] documented as of this encounter Visit Diagnoses Diagnosis Snoring- Primary Other dyspnea and respiratory abnormality Nocturia Weight gain, abnormal Abnormal weight gain BMI 37.0-37.9, adult documented in this encounter Advance Directives Documents on File Type Date Recorded 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
--- OUTSIDE RECORDS SUMMARY | 2023-12-20 06:18 | External Medical Summary | Summary of Care ---
Author Name Unknown Organization [facility] Address [address] [place] [address] Phone [phone] Care Team Providers Care Audit Partner Name Role Phone Rob Mackenzie MD Primary Care Provider [phone] Reason for Visit * Reason Onset Date Comments Medication Refill 12/13/2023 Encounter Details Date Type Department Care Team (Late st Contact Info) Description 12/13/2023 Refill Rheumatology [place] [address] [employer] [place] [address] Aristeo Brower MD [facility] [employer] [place] [address] Polyarthritis Allergies Active Allergy Reactions Criticality Noted Date Comments Adhesive Tape 11/15/2006 "like a burn" Morphine Sulfate Hives 12/30/2009 Other Allergy (See Comments) Rash 018 Dermabond Adhesive documented as of this encounter (statuses as of 12/13/2023) Medications Medication Sig Dispensed Refills Start Date End Date Status Fluorouracil 5 % External Cream (Efudex)Indication s:Skin lesion Apply topically to affected area 2 times a day. Apply to affected area once per day as needed 40 g 06/25/2023 Active Additional Information Patient not taking.Reported on 11/16/2023 Pantoprazole Sodium 40 MG Oral Tablet Delayed Release (Protonix)Indicati ons:Gastroesophage al reflux disease, unspecified whether esophagitis present TAKE ONE TABLET BY MOUTH EVERY MORNING 90 Tablet 3 08/09/2023 Active Citalopram Hydrobromide 40 MG Oral Tablet (CeleXA)Indication s:Major depressive disorder, recurrent episode, moderate (HCC) Take 1 Tablet by mouth daily. 90 Tablet 3 11/13/2023 Active Spironolactone 25 MG Oral Tablet (Aldactone)Indicat ions:Migraine variant, intractable Take 1 Tablet by mouth in the morning. 90 Tablet 3 11/14/2023 Active Hydroxychloroquine Sulfate 200 MG Oral Tablet (Plaquenil)Indicat ions:Polyarthritis Take 1 Tablet by mouth in the morning and 1 Tablet before bedtime. 180 Tablet 3 11/21/2023 Active predniSONE 10 MG Oral Tablet (Deltasone)Indicat ions:Polyarthritis Take 5 tablets by mouth for 2 days, 4 tabs for 2 days, 3 tabs for 2 days, 2 tabs for 2 days 1 tab for 2 days 30 Tablet 12/06/2023 Active HYDROcodone-Acetam inophen 5-325 MG Oral TabletIndications: Polyarthritis Take 1 Tablet by mouth every 8 hours as needed for Pain, Severe. 15 Tablet 12/13/2023 Active HYDROcodone-Acetam inophen 5-325 MG Oral TabletIndications: Polyarthritis Take 1 Tablet by mouth every 8 hours as needed for Pain, Severe. 15 Tablet 12/06/2023 Discontinue d(Refill) Hospital, Clinic, or Other Facility Administered Medication Ordered Dose Route Frequency Start Date End Date Status Vitamin B-12 (Cyanocobalamin) inj 1,000 mcgIndications:Vitamin B 12 deficiency 1000 mcg IM [id number] 11/28/2023 10/29/2024 Active documented as of this [...] mRNA, LNP-s, No Pre serve, 2-Dose Series ([employer]) 04/08/2021,04/04/2020,03/15/2020 HEPATITIS B VACCINE, RECOMB, 20 MCG/ML, [...] No 09/19/2017 documented as of this encounter Miscellaneous Notes * Telephone Encounter - Ilda Ace, [facility] - 12/13/2023 2:42 PM EDTSigned Prescriptions: Disp Refills HYDROcodone-Acetaminophen 5-325 MG Oral Ta*15 Tab*0 Sig: Take 1 Tablet by mouth every 8 hours as needed for Pain, Severe.Authorizing Provider: ARISTEO BROWER---- * Telephone Encounter - Aristeo Brower MD - 12/13/2023 1:05 PM EDTSigned Prescriptions: Disp Refills HYDROcodone-Acetaminophen 5-325 MG Oral Ta*15 Tab*0 Sig: Take 1 Tablet by mouth every 8 hours as needed for Pain, Severe.Authorizing Provider: ARISTEO BROWER---- * Telephone Encounter - Aristeo Brower MD - 12/13/2023 12:58 PM EDT I have reviewed the patients controlled substance dispensing history in the Prescription Drug Monitoring Program in compliance with the [facility] regulations before prescribing a controlled substance. Last Tox Screen Results: Results for orders placed or performed in visit on 06/21/18 TOX SCREEN, URINE, W/ CONFIRMATION Result Value Amphetamine NEGATIVE Barbiturates NEGATIVE Benzodiazepines NEGATIVE Cannabinoids NEGATIVE Cocaine Metabolite NEGATIVE Morphine / Codeine NEGATIVE METHADONE METABOLITE NEGATIVE OXYCODONE NEGATIVE TOX COMMENT THE ABOVE SCREENING RESULTS ARE PRESUMPTIVE AND CAN ONLY BE USED FOR MEDICAL PURPOSES. POSITIVE RESULTS REFLEX TO CONFIRMATORY TESTING. Cutoff Concentration Results for orders placed or performed in visit on 08/02/17 OPIOIDS/BENZO COMPLIANCE MONITORING W/INTERP Result Value COMPLIANCE INTERP (NOTE) URINE DRUG SCREEN RESULT Amphetamine NEGATIVE Barbiturates NEGATIVE Benzodiazepines NEGATIVE Cannabinoids NEGATIVE Cocaine Metabolite NEGATIVE METHADONE METABOLITE NEGATIVE Morphine / Codeine NEGATIVE OXYCODONE POSITIVE (A) COMMENT THE ABOVE SCREENING RESULTS ARE PRESUMPTIVE AND CAN ONLY BE USED FOR MEDICAL PURPOSES. CONFIRMATORY TESTING IS AVAILABLE UPON REQUEST. Cutoff Concentration URINE VALID INTERP NORMAL CREATININE LOCO 74 NITRITE LOCO 5 pH LOCO 7.1 *Note: Due to a large number of results and/or encounters for the requested time period, some results have not been displayed. A complete set of results can be found in Results Review. documented in this encounter Plan of Treatment Upcoming Encounters Date Type Department Care Team (Late st Contact Info) Description 12/13/2023 4:20 PM EDT Telemedicine Family Practice [facility] 132 [facility] [place] [address] Justina Garrett CRNP 132 [facility] [place] [address] 12/19/2023 5:30 PM EDT Nurse Only Ancillary [address] [place] [address] Nurse Wang Smith [facility] [place] [address] 01/01/2024 2:00 PM EDT Telemedicine Psychology [facility] 9 [place] [id number] Mary Garcia, MohinderyD [address] [place] [facility] [place] [address] 01/18/2024 4:00 PM EDT Nurse Only Ancillary [address] [place] [address] Nurse Wang Smith [address] [place] [address] [place] [address] 02/05/2024 7:30 PM EST PulmDiagnostic Sleep Lab, [facility] [address] [place] [address] [facility], Sleep Med Night Sleep 400 [facility] [address] 02/12/2024 11:20 AM EST Nutrition Services Nutrition & Weight Management, [address] [place] [address] Nila Montero, AMELIA 132 [facility] MatAIMEE aguila [address] 02/20/2024 5:30 PM EST Nurse Only Ancillary Margarita [facility] 132 [facility] R[place]PHA[place] AGU[place] [address] Nurse Wang Smith Benjy 132 [employer] [address] 02/27/2024 8:00 AM EST Office Visit Rheumatology [place] [address] [employer] [place] [address] Aristeo Brower MD [address] [place] [address] [employer] [place] [address] 03/21/2024 4:00 PM EST Nurse Only Domenico Galindograciela [facility] 132 [facility] [place] [address] Luis Nurse Wang Travis Benjy 132 [employer] [address] Health Maintenance Due Date Last Done Comments Pneumococcal Vaccine: Pediatrics (0 to 5 Years) and At-Risk Patients (6 to 64 Years) (1 of 2 - PCV) 1986 Mammogram 11/02/2023 11/01/2022, 08/0 11/2022, 01/01/2020, Additional history exists COVID-19 Vaccine ( - 2023- season) 2023 04/08/2021, 04/04/2020, 03/15/2020 Influenza Vaccine [...] this encounter Medical Devices Implanted Type Area Glass Products Inspector Device Identifier Shelf Expiration Date Model / Serial / Lot Ureteral Stent ([employer]lay [place]) Implanted:Qty: 1 on 03/14/2013 at [facility] Right: Ureter 06/23/2017 / [id number] / [id number] documented as of this encounter Visit Diagnoses Diagnosis Polyarthritis Unspecified polyarthropathy or polyarthritis, site unspecified documented in this encounter Advance Directives Documents on File Type Date Recorded Patient Licensed Certified Orthotist Expl anation Power of Bridge Ironworker Helper 12/28/2021 Rico Callaway POWER OF A TTORNEY [...] Agents on File Name Relationship Healthcare Agent [facility] p Communication [employer] Callaway Spouse Health Care Agent Care Teams Audit Partner Relationship Specialty Start Date End Date July, Rob Shelton MD [address] [place] [facility] [place] [address] PCP - General Family Medicine 10/05/23 documented as of this encounter
--- OUTSIDE RECORDS SUMMARY | 2023-12-20 06:18 | External Medical Summary | Summary of Care ---
Author Name Unknown Organization [facility] Address [address] [place] [address] Phone [phone] Care Team Providers Care Extension Service Supervisor Name Role Phone Rob Mackenzie MD Primary Care Provider [phone] Reason for Visit * Reason Comments Medication Administration B12 Encounter Details Date Type Department Care Team (Late st Contact Info) Description 12/19/2023 5:30 PM EDT Nurse Only Ancillary [facility] 132 [place] [address] [facility] Nurse [facility] [address] [place] [address] Medication Administration (B12) Allergies Active Allergy Reactions Criticality Noted Date Comments Adhesive Tape 11/15/2006 "like a burn" Morphine Sulfate Hives 12/30/2009 Other Allergy (See Comments) Rash 018 Dermabond Adhesive documented as of this encounter (statuses as of 12/19/2023) Medications Medication Sig Dispensed Refills Start Date [...] EVERY MORNING 90 Tablet 3 08/09/2023 Active Spironolactone 25 MG Oral Tablet (Aldactone)Indicat [...] Anxiety. 60 Tablet 2 12/13/2023 01/12/2024 Active DULoxetine HCl 30 MG Oral Capsule Delayed Release Particles (Cymbalta) Take 1 Capsule by mouth in the morning. 30 Capsule 3 12/18/2023 Active Hospital, Clinic, or Other Facility Administered Medication Ordered Dose Route Frequency Start Date End Date Status Vitamin B-12 (Cyanocobalamin) inj 1,000 mcgIndications:Vitamin B 12 deficiency 1000 mcg IM [id number] 11/28/2023 10/29/2024 Active documented as of this encounter (statuses as of 12/19/2023) Active Problems Problem Noted Date Diagnosed Date [...] as of this encounter (statuses as of 12/19/2023) Resolved Problems Problem Noted Date Diagnosed Date [...] as of this encounter (statuses as of 12/19/2023) Immunizations Name Administration Dates Next Due COVID-19 mRNA, LNP-s, No Pre serve, 2-Dose Series ([employer]) 04/08/2021,04/04/2020,03/15/2020 HEPATITIS B VACCINE, RECOMB, 20 MCG/ML, [...] money to buy more. Never true 09/12/19 Within the past 12 months, t he [...] No 09/19/2017 documented as of this encounter Plan of Treatment Upcoming Encounters Date Type Department Care Team (Late st Contact Info) Description 01/01/2024 2:00 PM EDT Telemedicine Psychology Ajay Malcolm 9 [place] [phone] Mary Garcia PsyD [address] [facility] [address] 01/18/2024 4:00 PM EDT Nurse Only Ancillary Margarita [facility] 132 [facility] [place] [address] SmithNurse enrique Wang Burleson 132 [facility] [place] [address] 02/05/2024 7:30 PM EST PulmDiagnostic Sleep Lab, [facility] 400 [place] Sandi PETERAIMEE HERNANDEZ [address] Gl, Sleep Med Night Sleep 400 [facility] [address] 02/12/2024 11:20 AM EST Nutrition Services Nutrition & Weight Management, [facility] 132 [facility] [place] [address] Nila Montero RDN 132 [facility] [place] [address] 02/20/2024 5:30 PM EST Nurse Only Ancillary [address] [address] Nurse Wang Smith [address] [place], [place] [address] [address] 02/27/2024 8:00 AM EST Office Visit Rheumatology [address] [place] [address] Jia Gabriel MD [address] [place] [address] [place] [address] 03/21/2024 4:00 PM EST Nurse Only Ancillary [facility] 132 [facility] [address] Nurse Wang Smith [facility] [place] [address] Health Maintenance Due Date Last Done Comments Pneumococcal Vaccine: Pediatrics (0 to 5 Years) and At-Risk Patients (6 to 64 Years) (1 of 2 - PCV) 1986 Mammogram 11/02/2023 11/01/2022, 080 11/2022, 01/01/2020, Additional history exists COVID-19 Vaccine [...] this encounter Medical Devices Implanted Type Area Co Founder And Cto Device Identifier Shelf Expiration Date Model / Serial / Lot Ureteral Stent ([employer]lay [place]) Implanted:Qty: 1 on 03/14/2013 at [facility] Right: Ureter 06/23/2017 / [id number] / [id number] documented as of this encounter Visit Diagnoses Diagnosis B12 deficiency- Primary Other B-complex deficiencies documented in this encounter Administered Medications Active Administered Medications - up to 3 most recent administrations Medication Order MAR Action Action Date Dose Rate Site Vitamin B-12 (Cyanocobalamin) inj 1,000 mcg 1,000 mcg, Intramuscular, [id number], First dose on Sun11/28/23 at 1200, Last dose on Sun10/01/24 at 1200, For 12 doses Given 12/19/2023 11:06 AM EDT 1,000 mcg Deltoid Right Upper Given 11/28/2023 1:32 PM EDT 1,000 mcg De ltoid Right Upper documented in this encounter Advance Directives Documents on File Type Date Recorded Patient Mentally Retarded Teacher Expl anation Power of Cutting And Splicing Supervisor 12/28/2021 Rico Callaway POWER OF A TTORNEY [...] Callaway Spouse Health Care Agent Care Teams Extension Service Supervisor Relationship Specialty Start Date End Date July, Rob Shelton MD [address] [place] [address] PCP - General Family Medicine 10/05/23 documented as of this encounter
--- OUTSIDE RECORDS SUMMARY | 2023-12-20 06:18 | External Medical Summary | Summary of Care ---
Author Name Unknown Organization [facility] Address [address] [place] [address] Phone [phone] Care Team Providers Care Cell Room Operator Name Role Phone Rob Mackenzie MD Primary Care Provider [phone] Reason for Visit * Reason Onset Date Comments Medication Refill 12/13/2023 Encounter Details Date Type Department Care Team (Late st Contact Info) Description 12/13/2023 Refill Rheumatology [place] [address] [employer] [place] [address] Aristeo Brower MD [facility] [employer] [place] [address] Polyarthritis Allergies Active Allergy Reactions Criticality Noted [...] mcgIndications:Vitamin B 12 deficiency 1000 mcg IM [id number] 11/28/2023 10/29/2024 Active documented as of this [...] mRNA, LNP-s, No Pre serve, 2-Dose Series ([employer]) 04/08/2021,04/04/2020,03/15/2020 HEPATITIS B VACCINE, RECOMB, 20 MCG/ML, [...] encounter Miscellaneous Notes * Telephone Encounter - Aristeo Brower MD [...] Drug Monitoring Program in compliance with the [facility] regulations before prescribing a controlled substance. Last [...] 12/13/2023 4:20 PM EDT [facility]medicine [facility] 132 [facility] [place] [address] Justina Garrett CRNP [address] [place] [address] 12/19/2023 5:30 PM EDT [facility] 132 [address] [facility] [place] [address] Nurse Wang Smith 132 [facility] [place] [address] 01/01/2024 2:00 PM EDT Telemedicine Psychology [facility] [address] [place] [phone] Mary Garciat, PsyD [address] [facility] [place] [address] 01/18/2024 4:00 PM EDT [facility] Only [facility] 132 [facility] [address] Nurse Wang Smith 132 [facility] CenterILD[facility] [address] 02/05/2024 7:30 PM EST PulmDiagnostic Sleep Lab, [facility] 400 [place] [address] [facility], Sleep Med Night Sleep 400 [place] [address] 02/12/2024 11:20 AM EST Nutrition Services Nutrition & Weight Management, [facility] 132 [facility] [address] Nila Montero RDN 132 [facility] [address] 02/20/2024 5:30 PM EST Nurse Only [facility] 132 [facility] [place] [address] Nurse Wang Smith 132 [facility] [place] [address] 02/27/2024 8:00 AM EST Office Visit Rheumatology [place] [address] [place] [address] Aristeo Brower MD [address] [place] [address] [place] [address] 03/21/2024 4:00 PM EST Nurse Only Ancillary Margarita Smith [place] 132 [facility], [place] [address] [place], Nurse Wang Burleson 132 [facility], [place] [address] Health Maintenance Due Date Last Done Comments [...] Additional history exists Lipid Panel 11/12/2028 11/13/2023, 090 10/2022, 08/20/2020, Additional history exists Hepatitis B Vaccine Completed 08/22/2022, 07/17/2022, 10/17/2000 HIV Screening Discontinued HPV (Gardasil) Vaccine Aged Out No lo nger eligible based on patient's age to complete this topic Hepatitis C Screening Discontinued MENINGOCOCCAL (MENACTRA/MENVEO) Aged Out No longer eligible based on patient's age to complete this topic documented as of this encounter Medical Devices Implanted Type Area Synthetic Filament Spinner Device Identifier Shelf Expiration Date Model / Serial / Lot Ureteral Stent (Inlay [place]) Implanted:Qty: 1 on 03/14/2013 at [facility] Right: Ureter 06/23/2017 / [id number] / [id number] documented as of this encounter Visit Diagnoses Diagnosis Polyarthritis Unspecified polyarthropathy or polyarthritis, site unspecified documented in this encounter Advance Directives Documents on File Type Date Recorded Patient Account Relationship Manager Expl anation Power of Auto Body Technician 12/28/2021 Rico Callaway POWER OF A TTORNEY [...] Callaway Spouse Health Care Agent Care Teams Cell Room Operator Relationship Specialty Start Date End Date July, Rob Shelton MD [address] [place] [address] PCP - General Family Medicine 10/05/23 documented as of this encounter
--- OUTSIDE RECORDS SUMMARY | 2023-12-20 06:18 | External Medical Summary | Summary of Care ---
Author Name Unknown Organization [facility] Address [address] [place] [address] Phone [phone] Care Team Providers Care Human Resources Assistant Manager Name Role Phone Rob Mackenzie MD Primary Care Provider [phone] Reason for Visit * Reason Onset Date Comments Medication Refill 12/04/2023 Encounter Details Date Type Department Care Team (Late st Contact Info) Description 12/04/2023 Refill Rheumatology [place] [address] [address] [place] [address] Aristeo Brower MD [facility] [place] [address] Polyarthritis Allergies Active Allergy Reactions Criticality Noted [...] needed for Pain, Severe. 15 Tablet 12/06/2023 Active HYDROcodone-Acetam inophen 5-325 MG Oral TabletIndications: Polyarthritis Take 1 Tablet by mouth every 8 hours as needed for Pain, Severe. 15 Tablet 11/23/2023 Discontinue d(Refill) Hospital, Clinic, or Other Facility Administered Medication Ordered Dose Route Frequency Start Date End Date Status Vitamin B-12 (Cyanocobalamin) inj 1,000 mcgIndications:Vitamin B 12 deficiency 1000 mcg IM [id number] 11/28/2023 10/29/2024 Active documented as of this [...] mRNA, LNP-s, No Pre serve, 2-Dose Series ([employer]) 04/08/2021,04/04/2020,03/15/2020 HEPATITIS B VACCINE, RECOMB, 20 MCG/ML, [...] Telephone Encounter - Aristeo Brower MD - 12/06/2023 1:52 PM EDTSigned Prescriptions: Disp Refills HYDROcodone-Acetaminophen 5-325 MG Oral Ta*15 Tab*0 Sig: Take 1 Tablet by mouth every 8 hours as needed for Pain, Severe.Authorizing Provider: ARISTEO BROWER---- * Telephone Encounter - Aristeo Brower MD - 12/06/2023 1:52 PM EDTSigned Prescriptions: Disp Refills HYDROcodone-Acetaminophen 5-325 MG Oral Ta*15 Tab*0 Sig: Take 1 Tablet by mouth every 8 hours as needed for Pain, Severe.Authorizing Provider: ARISTEO BROWER---- * Telephone Encounter - Aristeo Brower MD - 12/06/2023 1:50 PM EDT I have reviewed the patients controlled substance dispensing history in the Prescription Drug Monitoring Program in compliance with the [facility] regulations before prescribing a controlled substance. [...] results can be found in Results Review. * Telephone Encounter - Neno Salvador [facility] - 12/06/2023 10:18 AM EDT Pending Prescriptions: Disp Refills HYDROcodone-Acetaminophen 5-325 MG Oral Ta*15 Tab*0 Sig: Take 1 Tablet by mouth every 8 hours as needed for Pain, Severe. * Telephone Encounter - Neno Salvador [facility] - 12/06/2023 10:18 AM EDT [facility] is currently not authorized to approve refills for the pended medication(s) per refill protocol. Please approve if appropriate. Thanks, Neno Salvador, PharmD Clinical Pharmacist [facility] [phone] 12/06/2023, 10:18 AM documented in this encounter Plan of Treatment Upcoming Encounters Date Type Department Care Team (Late st Contact Info) Description 12/19/2023 5:30 PM EDT [facility] 132 [place] [address] Nurse Wang Smith 132 [place] [address] 01/01/2024 2:00 PM EDT Telemedicine Psychology Ajay Malcolm 9 [place] [address] Mary Garcia, Belen [address] [place] [address] 01/18/2024 4:00 PM EDT [facility] Only [facility] 132 [facility] [address] Nurse Wang Smith 132 [facility] [address] 02/05/2024 7:30 PM EST PulmDiagnostic Sleep Lab, [facility] 400 [facility] [address] [facility], Sleep Med Night Sleep 400 [facility] [address] 02/12/2024 11:20 AM EST Nutrition Services Nutrition & Weight Management, [facility] 132 [facility] [address] Nila Montero RDN 132 [place] [address] 02/20/2024 5:30 PM EST Nurse Only Ancillary [address] [address] Nurse Wang Smith [address] [place], [place] [address] [address] 02/27/2024 8:00 AM EST Office Visit Rheumatology [address] [place] [address] Aristeo Brower MD [address] [place] [address] [place], [place] [address] 03/21/2024 4:00 PM EST Nurse Only [facility]illary [facility] 132 [facility] [place] [address] Nurse Wang Smith [address] [place], [place] [address] [address] Health Maintenance Due Date Last Done Comments Pneumococcal Vaccine: Pediatrics (0 to 5 Years) and At-Risk Patients (6 to 64 Years) (1 of 2 - PCV) 1986 Mammogram 11/02/2023 11/01/2022, 080 11/2022, 01/01/2020, Additional history exists COVID-19 Vaccine ( - season) 2023 04/08/2021, 04/04/2020, 03/15/2020 Influenza Vaccine [...] this encounter Medical Devices Implanted Type Area Soot Blower Device Identifier Shelf Expiration Date Model / Serial / Lot Ureteral Stent ([employer]lay [place]) Implanted:Qty: 1 on 03/14/2013 at [facility] Right: Ureter 06/23/2017 / 6X24 / [id number] documented as of this encounter Visit Diagnoses Diagnosis Polyarthritis Unspecified polyarthropathy or polyarthritis, site unspecified documented in this encounter Advance Directives Documents on File Type Date Recorded Patient Cis Coordinator Expl anation Power of Magazine Writer 12/28/2021 Rico Callaway POWER OF A TTORNEY [...] Callaway Spouse Health Care Agent Care Teams Human Resources Assistant Manager Relationship Specialty Start Date End Date July, Rob Shelton MD [address] [place] [address] PCP - General Family Medicine 10/05/23 documented as of this encounter
--- OUTSIDE RECORDS SUMMARY | 2023-12-20 06:18 | External Medical Summary | Summary of Care ---
Author Name Unknown Organization [facility] Address [address] [place] [address] Phone [phone] Care Team Providers Care Studio Associate Name Role Phone JulyNicolasa MD Primary Care Provider [phone] Reason for Visit * Reason Onset Date Comments Medication Refill 12/04/2023 Encounter Details Date Type Department Care Team (Late st Contact Info) Description 12/04/[address] [facility] [address] [place] [address] JulyNicolasa MD [address] [place] [address] Polyarthritis Allergies Active Allergy Reactions Criticality Noted [...] before bedtime. 180 Tablet 3 11/21/2023 Active HYDROcodone-Acetam inophen 5-325 MG Oral TabletIndications: Polyarthritis Take 1 Tablet by mouth every 8 hours as needed for Pain, Severe. 15 Tablet 11/23/2023 Active predniSONE 10 MG Oral Tablet (Deltasone)Indicat ions:Polyarthritis Take 5 tablets by mouth for 2 days, 4 tabs for 2 days, 3 tabs for 2 days, 2 tabs for 2 days 1 tab for 2 days 30 Tablet 12/06/2023 Active predniSONE 10 MG Oral Tablet (Deltasone)Indicat ions:Polyarthritis Take 5 tablets by mouth for 2 days, 4 tabs for 2 days, 3 tabs for 2 days, 2 tabs for 2 days 1 tab for 2 days 30 Tablet 11/16/2023 4 Discontinue d(Refill) Hospital, Clinic, or Other Facility Administered Medication Ordered Dose Route Frequency Start Date End Date Status Vitamin B-12 (Cyanocobalamin) inj 1,000 mcgIndications:Vitamin B 12 deficiency 1000 mcg IM [id number] 11/28/2023 10/29/2024 Active documented as of this [...] mRNA, LNP-s, No Pre serve, 2-Dose Series ([employer]) 04/08/2021,04/04/2020,03/15/2020 HEPATITIS B VACCINE, RECOMB, 20 MCG/ML, [...] encounter Miscellaneous Notes * Telephone Encounter - Nicolasa Gonzalez MD - 12/06/2023 7:37 AM EDTSigned Prescriptions: Disp Refills predniSONE 10 MG Oral Tablet (Deltasone) 30 Tab*0 Sig: Take 5 tablets by mouth for 2 days, 4 tabs for 2 days, 3 tabs for 2 days, 2 tabs for 2 days 1 tab for 2 days Authorizing Provider: NICOLASA GONZALEZ * [facility]57 PM EDTPending Prescriptions: Disp Refills predniSONE 10 MG Oral Tablet (Deltasone) 30 Tab*0 Sig: Take 5 tablets by mouth for 2 days, 4 tabs for 2 days, 3 tabs for 2 days, 2 tabs for 2 days 1 tab for 2 days * Telephone Encounter - Brianna Lewis [facility] - 12/05/2023 2:57 PM EDT Refill pharmacists currently not authorized to approve refills for this class of medication per refill protocol. Please approve if appropriate. Pending Prescriptions: Disp Refills predniSONE 10 MG Oral Tablet (Deltasone) 30 Tab*0 Sig: Take 5 tablets by mouth for 2 days, 4 tabs for 2 days, 3 tabs for 2 days, 2 tabs for 2 days 1 tab for 2 days 07/30/2023 (in office), 07/11/2022 (telemedicine) Visit date not found If no future appointments scheduled, and last appointment is greater than a year ago, please schedule patient for a follow-up appointment Last date the medication was ordered: 11/16/23 Pharmacy: [id number] Is this request for a controlled substance? no Urine Drug Screen: Results for orders placed or performed in [...] results can be found in Results Review. Patient Phone Numbers Labs: Lab Results Component Value Date/Time CREAT 1.1 (H) 11/13/2023 10:06 AM CREAT 1.1 (H) 01/29/2019 03:49 PM POTASSIUM 4.4 11/13/2023 10:06 AM POTASSIUM 4.3 01/29/2019 03:49 PM TSH 0.96 11/13/2023 10:06 AM TSH 0.36 07/31/2013 11:50 AM LDL 131 (H) 11/13/2023 10:06 AM LDL 99 08/07/2008 12:10 PM ALT 51 (H) 11/13/2023 10:06 AM ALT 12 01/29/2019 03:49 PM HGBA1C 5.1 11/13/2023 10:06 AM documented in this encounter Plan of Treatment Upcoming Encounters Date Type Department Care Team (Late st Contact Info) Description 12/06/2023 8:00 AM EDT Office Visit Sleep Disorders Ctr [facility] [address] [place] [phone] Elizabeth White CRNP [address] [facility] [place] [address] Arrived 12/19/2023 5:30 PM EDT Nurse Only Ancillary Margarita [address] [place] [address] Luis, Nurse Fam Thaddeus Benjy [address] [place] [address] 01/01/2024 2:00 PM EDT Telemedicine Psychology Leo [facility] [address] [place] [phone] Mary Garcia, MohinderyD [address] [place], [place] [phone] 01/18/2024 4:00 PM EDT Nurse Only Ancillary Margarita [address] [address] Luis Nurse Wang Travis Benjy [address] [place] [address] 02/12/2024 11:20 AM EST Nutrition Services Nutrition & Weight Management, [place] [address] Nila Montero RDN [address] [place] [address] 02/20/2024 5:30 PM EST Nurse Only Ancillary Mateoenrique [address] [address] Luis Nurse Wang Travis Benjy [address] [place] [address] 02/27/2024 8:00 AM EST Office Visit Rheumatology [place] [id number] [facility] [place], [place] [address] Jai Gabriel MD [address] [place] [address] [place] [address] 03/21/2024 4:00 PM EST Nurse Only Ancillary Margarita [facility] [address] [place] [address] Smith, Nurse Wang Burleson [address] [place] [address] Health Maintenance Due Date Last Done Comments [...] this encounter Medical Devices Implanted Type Area Band Saw Operator Cake Cutting Device Identifier Shelf Expiration Date Model / Serial / Lot Ureteral Stent (Inlay [place]) Implanted:Qty: 1 on 03/14/2013 at OR [facility] Right: Ureter 06/23/2017 / [id number] / [id number] documented as of this encounter Visit Diagnoses Diagnosis Polyarthritis Unspecified polyarthropathy or polyarthritis, site unspecified documented in this encounter Advance Directives Documents on File Type Date Recorded Patient Medical Records Field Technician Expl anation Power of Funeral Planning Counselor 12/28/2021 Rico Callaway POWER OF A TTORNEY [...] Callaway Spouse Health Care Agent Care Teams Studio Associate Relationship Specialty Start Date End Date July, Nicolasa Shelton MD [address] [place] [address] PCP - General Family Medicine 10/05/23 documented as of this encounter
--- OUTSIDE RECORDS SUMMARY | 2023-12-20 06:19 | External Medical Summary | Summary of Care ---
Author Name Unknown Organization [facility] Address [address] [place] [address] Phone [phone] Care Team Providers Care Linux Kernel Engineer Name Role Phone Rob Mackenzie MD Primary Care Provider [phone] Encounter Details Date Type Department Care Team (Late st Contact Info) Description 12/04/2023 9:00 AM EDT Telemedicine Nutrition & Weight Management, [facility] [address] [place] [address] Joslyn Joyner PA-C [address] [place] [address] Class 2 severe obesity due to excess calories with serious comorbidity and body mass index (BMI) of 36.0 to 36.9 in adult (HCC)*; Vitamin D deficiency; Iron deficiency Allergies Active Allergy Reactions Criticality Noted Date Comments Adhesive Tape 11/15/2006 "like a burn" Morphine Sulfate Hives 12/30/2009 Other Allergy (See Comments) Rash 018 Dermabond Adhesive documented as of this encounter (statuses as of 12/04/2023) Medications Medication Sig Dispensed Refills Start Date [...] the morning. 90 Tablet 3 11/14/2023 Active predniSONE 10 MG Oral Tablet (Deltasone)Indicati ons:Polyarthritis Take 5 tablets by mouth for 2 days, 4 tabs for 2 days, 3 tabs for 2 days, 2 tabs for 2 days 1 tab for 2 days 30 Tablet 11/16/2023 Active Hydroxychloroquine Sulfate 200 MG Oral Tablet (Plaquenil)Indicati ons:Polyarthritis Take 1 Tablet by mouth in the morning and 1 Tablet before bedtime. 180 Tablet 3 11/21/2023 Active HYDROcodone-Acetami nophen 5-325 MG Oral TabletIndications:P olyarthritis Take 1 Tablet by mouth every 8 hours as needed for Pain, Severe. 15 Tablet 11/23/2023 Active Hospital, Clinic, or Other Facility Administered Medication Ordered Dose Route Frequency Start Date End Date Status Vitamin B-12 (Cyanocobalamin) inj 1,000 mcgIndications:Vitamin B 12 deficiency 1000 mcg IM [id number] 11/28/2023 10/29/2024 Active documented as of this encounter (statuses as of 12/04/2023) Active Problems Problem Noted Date Diagnosed Date [...] as of this encounter (statuses as of 12/04/2023) Resolved Problems Problem Noted Date Diagnosed Date [...] as of this encounter (statuses as of 12/04/2023) Immunizations Name Administration Dates Next Due COVID-19 mRNA, LNP-s, No Pre serve, 2-Dose Series ([employer]) 04/08/2021,04/04/2020,03/15/2020 HEPATITIS B VACCINE, RECOMB, 20 MCG/ML, [...] as of this encounter Progress Notes * Joslyn Joyner PA-C - 12/04/2023 8:50 AM EDT Comprehensive Weight Management Clinic Note Surgery Class Patient location: HOME. I was in a hospital or clinic location. After connecting through [employer],patient was verified with two unique identifiers. Patient (or authorized legal business process representative) was then informed that this was a Telemedicine visit and being conducted confidentially over secure lines. Methods to assure confidentiality were taken. Patient acknowledged consent and understanding of pr ivacy and security of the Telemedicine visit. The patient agreed to participate. There are no exam notes on file for this visit. Gabbijose Callaway presents in follow up to the comprehensive weight management clinic. The patient is a 42 year old female Wt Readings from Last 6 Encounters: 11/27/23 104.3 kg (230 lb) 11/13/23 104.5 kg (230 lb 6.4 oz) 08/24/23 99.3 kg (219 lb) 08/08/23 98.6 kg (217 lb 6.4 oz) 07/30/23 97.6 kg (215 lb 1.6 oz) 07/03/23 92.7 kg (204 lb 4.8 oz) Patient is receiving ongoing education regarding dietary and physical modifications for weight loss. Patient is interested in the following treatment options for obesity: surgical options including Jeff-en-Y gastric bypass. - Initial clinic visit 07/03/23. Weight 204 lbs Height 66.73" Body mass index is 32.26 kg/m. - Today's weight: unsure lbs 12/04/23 -Surgery class - Behavioral medicine - YELLOW - 01/01/24 - RD - YELLOW - 02/12/24 -sleep medicine - 12/06/23 -taking Vit D, Vitron C -off prednisone currently - feels like she is eating significantly less Patient Active Problem List Diagnosis Gastroesophageal reflux disease without esophagitis MEDICATION USE AGREEMENT S/p nephrectomy Major depressive disorder, recurrent episode, moderate (HCC) Perimenopausal disorder Obesity, Class I, BMI 30.0-34.9 (see actual BMI) Polyarthritis Encounter for long-term (current) use of medications Review of Systems: The patient denies any chest pain, shortness of breath, palpitations or ankle edema. Since the lastvisit there have been no problems with Abdominal pain / cramps and Diarrhea. Current Medications: Current Outpatient Medications Medication Sig Dispense Refill Fluorouracil 5 % External Cream (Efudex) Apply topically to affected area 2 times a day. Apply to affected area once per day as needed (Patient not taking: Reported on 11/16/2023) 40 g 0 Pantoprazole Sodium 40 MG Oral Tablet Delayed Release (Protonix) TAKE ONE TABLET BY MOUTH EVERY MORNING 90 Tablet 3 Citalopram Hydrobromide 40 MG Oral Tablet (CeleXA) Take 1 Tablet by mouth daily. 90 Tablet 3 Spironolactone 25 MG Oral Tablet (Aldactone) Take 1 Tablet by mouth in the morning. 90 Tablet 3 predniSONE 10 MG Oral Tablet (Deltasone) Take 5 tablets by mouth for 2 days, 4 tabs for 2 days, 3 tabs for 2 days, 2 tabs for 2 days 1 tab for 2 days 30 Tablet 0 Hydroxychloroquine Sulfate 200 MG Oral Tablet (Plaquenil) Take 1 Tablet by mouth in the morning and1 Tablet before bedtime. 180 Tablet 3 HYDROcodone-Acetaminophen 5-325 MG Oral Tablet Take 1 Tablet by mouth every 8 hours as needed for Pain, Severe. 15 Tablet 0 Current Facility-Administered Medications Medication Dose Route Frequency Provider Last Rate Last Admin Vitamin B-12 (Cyanocobalamin) inj 1,000 mcg 1,000 mcg Intramuscular Q4 Weeks 1,000 mcg at 11/28/23 1332 Weight loss Pharmacotherapy: no There were no vitals taken for this visit. PHYSICAL EXAMINATION: General: Patient awake alert and oriented. Patient is well appearing and in no acute distress. Skin: No rashes. HEENT: Head is atraumatic, normocephalic. EOMs intact Abdomen: Obese Neuro: No focal deficits Psych: Appropriate mood and affect. Assessment and Plan: Abnormal weight gain / There is no height or weight on file to calculate BMI. / Class II obesity: - Would like to proceed with surgical options including Jeff-en-Y gastric bypass - Barriers are consistency - Motivators are feeling better overall, avoiding/reducing co-morbid conditions - The patient was encouraged to to avoid all fruit juices and regular sodas, consume at least 64 ounces of water per day, keep food logs and get weighed on a weekly basis. They were encouraged to increase physical activity as prescribed. - Handouts regarding nutrition and physical activity were provided, as appropriate. Goals for next month: - Practice what you learned in the classes - Continue with current diet plan - Continue with your exercises and increase as much as possible Diagnoses and all orders for this visit: Class 2 severe obesity due to excess calories with serious comorbidity and body mass index (BMI) of36.0 to 36.9 in adult (HCC) -enrolled in surgery program -plan RYGB Vitamin D deficiency -taking Vitamin D - recheck labs end of December Iron deficiency -taking Vitron C - recheck labs end of December Abnormal weight gain Gastroesophageal reflux disease without esophagitis -continue PPI -last EGD was 2009, will update Polyarthritis -continue Plaquenil -discussed avoiding NSAIDs and limiting steroid use after surgery Major depressive disorder, recurrent episode, moderate (HCC) -stable on Celexa S/p nephrectomy -d/t congenital abnormality B12 deficiency -gets monthly B12 injections -recheck today -unknown cause Contraception -s/p hysterectomy The Possibility of bariatric surgery: The patient attended the third of our group sessions today regarding bariatric surgery. Information regarding medical complications of obesity and medical outcomes following surgery was included. A description of the different types of bariatric surgeries, introduction to the surgeons, risks and complications of bariatric surgery as well as surgical outcomes was provided. Patient respo nsibilities were reviewed. A question and answer session followed. The bariatric checklist was reviewed with patient and updated in addition to review of labs, imaging, and potential referrals. The patient agreed to try the plan as discussed and return in 1 month. They were encouraged to callor send a patient portal message in the meantime with any questions or concerns prior to their nextclinic visit. I spent a total of 20 minutes on the date of service in preparation, delivery, and documentation ofthe care provided to Gabbi Callaway excluding any time spent in the performance of separately billed services. This included but was no limited to providing counseling about the benefits of weight loss, about their nutritional status, detailed explanations about calorie count, types of nutrients to choose, and composition of the meals. Motivational interview provided in order to prepare the patient to achieve future goals. Joslyn CAMPOS, MPH [facility] documented in this encounter Plan of Treatment Upcoming Encounters Date Type Department Care Team (Late st Contact Info) Description 12/04/2023 10:00 AM EDT Telemedicine Nutrition & Weight Management, Margarita [facility] [place] [address] Luis, Surgery Class Provider [place] [address] Arrived 12/06/2023 8:00 AM EDT [facility] [place] [phone] Elizabeth White CRNP [address] [place] [address] 12/19/2023 5:30 PM EDT Nurse Only Ancillary Margarita [facility] [address] Luis Nurse Wang Travis Benjy [address] [place], [place] [address] [address] 01/01/2024 2:00 PM EDT Telemedicine Psychology Leo [facility] [address] [place] [phone] Mary Garcia, [place] [address] [place] [address] 01/18/2024 4:00 PM EDT Nurse Only Ancillary [address] [address] Nurse Wang Smith Benjy [address] [place] [address] [place] [address] 02/12/2024 11:20 AM EST Nutrition Services Nutrition & Weight Management, [address] [address] Nila Montero RDN 132 [place] [address] 02/20/2024 5:30 PM EST Nurse Only [facility] [address] [address] Luis Nurse Wang Travis Benjy [address] [place], [place] [address] [address] 02/27/2024 8:00 AM EST Office Visit Rheumatology [address] [place] [address] Jai Gabriel MD [address] [place] [address] [place] [address] 03/21/2024 4:00 PM EST Nurse Only [facility]illary [facility] [address] [facility] [place] [address] Luis, Nurse Wang Burleson [address] [facility] [place], [place] [address] Health Maintenance Due Date Last Done Comments [...] this encounter Medical Devices Implanted Type Area Guest Services Associate Device Identifier Shelf Expiration Date Model / Serial / Lot Ureteral Stent (Inlay [place]) Implanted:Qty: 1 on 03/14/2013 at OR [facility] Right: Ureter 06/23/2017 / [id number] / [id number] documented as of this encounter Visit Diagnoses Diagnosis Class 2 severe obesity due to excess calories with serious comorbidity and body mass index (BMI) of 36.0 to 36.9 in adult (HCC)- Primary Vitamin D deficiency Unspecified vitamin D deficiency Iron deficiency Iron deficiency anemia, unspecified documented in this encounter Advance Directives Documents on File Type Date Recorded Patient Irs Agent Expl anation Power of Correctional Lieutenant 12/28/2021 Rico Callaway POWER OF A TTORNEY [...] Callaway Spouse Health Care Agent Care Teams Linux Kernel Engineer Relationship Specialty Start Date End Date July, Rob Shelton MD [address] [facility] [place] [address] PCP - General Family Medicine 10/05/23 documented as of this encounter
--- OUTSIDE RECORDS SUMMARY | 2023-12-20 06:19 | External Medical Summary | Summary of Care ---
Author Name Unknown Organization [facility] Address [address] [place] [address] Phone [phone] Care Team Providers Care Line Manager Name Role Phone Rob Mackenzie MD Primary Care Provider [phone] Encounter Details Date Type Department Care Team (Late st Contact Info) Description 11/28/2023 Telephone Family Practice [facility] [address] [facility] [place] [address] Justina Garrett CRNP [address] [facility] [address] Allergies Active Allergy Reactions Criticality Noted Date Comments Adhesive Tape 11/15/2006 "like a burn" Morphine Sulfate Hives 12/30/2009 Other Allergy (See Comments) Rash 018 Dermabond Adhesive documented as of this encounter (statuses as of 11/28/2023) Medications Medication Sig Dispensed Refills Start Date [...] mcgIndications:Vitamin B 12 deficiency 1000 mcg IM [id number] 11/28/2023 10/29/2024 Active documented as of this encounter (statuses as of 11/28/2023) Active Problems Problem Noted Date Diagnosed Date [...] as of this encounter (statuses as of 11/28/2023) Resolved Problems Problem Noted Date Diagnosed Date [...] as of this encounter (statuses as of 11/28/2023) Immunizations Name Administration Dates Next Due COVID-19 [...] encounter Miscellaneous Notes * Telephone Encounter - Karla Pham LPN - 11/28/2023 11:28 AM EDT Pt due for B12 injection. Please sign order if appropriate. documented in this encounter Plan of Treatment Upcoming Encounters Date Type Department Care Team (Late st Contact Info) Description 11/28/2023 5:30 PM EDT Immunization/Injection Ancillary Margarita Smith, [place] [address] [place] [address] Nurse Wang Smith [address] [place] [address] Arrived 12/04/2023 9:00 AM EDT Telemedicine Nutrition & [facility], [facility] [place] [address] Joslyn Joyner PA-C 132 [facility] [place] [address] 12/04/2023 10:00 AM EDT Telemedicine Nutrition & Weight Management, [address] [place] [address] [facility], Surgery Class Provider Benjy [address] [place] [address] [place] [address] 12/06/2023 8:00 AM EDT Office Visit Sleep Disorders Ctr [facility] 132 [facility] [place] [phone] Elizabeth White CRNP 132 [facility] [address] 12/19/2023 5:30 PM EDT Nurse Only Ancillary [facility] 132 [facility] [place] [address] Nurse Wang Smith [address] [place], [place] [address] [address] 01/01/2024 2:00 PM EDT Telemedicine Psychology [facility] [place] [address] [place] [phone] Mary Garcia, [place] [address] [place] [address] 01/18/2024 4:00 PM EDT Nurse Only Ancillary [facility] 132 [facility] [place] [address] Nurse Wang Smith [address] [place], [place] [address] [address] 02/12/2024 11:20 AM EST Nutrition Services Nutrition & Weight Management, [facility] 132 [facility] [address] Nila Montero, [place] 132 [facility] [place] [address] 02/20/2024 5:30 PM EST Nurse Only Ancillary [facility] [address] [facility] [address] Nurse Wang Smith [address] [facility] [address] 02/27/2024 8:00 AM EST Office Visit Rheumatology [address] [place] [address] Jai Gabriel MD [facility] [place] [address] 03/21/2024 4:00 PM EST Nurse Only [facility] [address] [facility] [address] Nurse Wang [place] [address] [facility] [address] Health Maintenance Due Date Last Done Comments Pneumococcal Vaccine: Pediatrics (0 to 5 Years) and At-Risk Patients (6 to 64 Years) (1 of 2 - PCV) 1986 Mammogram 11/02/2023 11/01/2022, 08/0 11/2022, 01/01/2020, Additional history exists COVID-19 Vaccine (2022- season) 2023 04/08/2021, 04/04/2020, 03/15/2020 Influenza Vaccine (FLU shot) (#1) 2023 01/31/2023, 02/07/2022, 01/13/2021, Additional history exists Depression Monitoring 06/24/2024 06/25/2023 Diabetes Screening 11/12/2026 11/13/2023, 0 11/13/2023, 07/30/2023, Additional history exists DTap/Tdap Vaccines (8 - Td or Tdap) 04/17/2028 04/17/2018, 11/28/2007, 11/10/1995, Additional history exists Lipid Panel 11/12/2028 11/13/2023, 09/10/2022, 08/20/2020, Additional history exists Hepatitis B Vaccine Completed 08/22/2022, 07/17/2022, 10/17/2000 HIV Screening Discontinued HPV (Gardasil) Vaccine Aged Out No lo nger eligible based on patient's age to complete this topic Hepatitis C Screening Discontinued MENINGOCOCCAL (MENACTRA/MENVEO) Aged Out No longer eligible based on patient's age to complete this topic documented as of this encounter Medical Devices Implanted Type Area Senior Facilities Manager Device Identifier Shelf Expiration Date Model / Serial / Lot Ureteral Stent (Inlay [place]) Implanted:Qty: 1 on 03/14/2013 at [facility] Right: Ureter 06/23/2017 / [id number] / [id number] documented as of this encounter Visit Diagnoses Diagnosis Vitamin B 12 deficiency- Primary Other B-complex deficiencies documented in this encounter Advance Directives Documents on File Type Date Recorded Patient Software Test Technician Expl anation Power of Loan Teller 12/28/2021 Rico Callaway POWER OF A TTORNEY [...] Callaway Spouse Health Care Agent Care Teams Line Manager Relationship Specialty Start Date End Date July, Rob Shelton MD [address] [place] [facility] [place] [address] PCP - General Family Medicine 10/05/23 documented as of this encounter
--- OUTSIDE RECORDS SUMMARY | 2023-12-20 06:19 | External Medical Summary | Summary of Care ---
Author Name Unknown Organization [facility] Address [address] [place] [address] Phone [phone] Care Team Providers Care Cobol Developer Name Role Phone Rob Mackenzie MD Primary Care Provider [phone] Reason for Visit * Reason Onset Date Comments Forms Request 11/23/2023 Encounter Details Date Type Department Care Team (Late st Contact Info) Description 11/23/2023 Telephone Rheumatology [facility] [address] [place] [address] Jai Gabriel MD [address] [place] [address] Forms Request Allergies Active Allergy Reactions Criticality Noted Date Comments Adhesive Tape 11/15/2006 "like a burn" Morphine Sulfate Hives 12/30/2009 Other Allergy (See Comments) Rash 018 Dermabond Adhesive documented as of this encounter (statuses as of 11/23/2023) Medications Medication Sig Dispensed Refills Start Date [...] the morning. 90 Tablet 3 11/14/2023 Active HYDROcodone-Acetami nophen 5-325 MG Oral TabletIndications:P olyarthritis Take 1 Tablet by mouth every 8 hours as needed for Pain, Severe. 15 Tablet 11/16/2023 Active predniSONE 10 MG Oral Tablet (Deltasone)Indicati [...] before bedtime. 180 Tablet 3 11/21/2023 Active documented as of this encounter (statuses as of 11/23/2023) Active Problems Problem Noted Date Diagnosed Date [...] as of this encounter (statuses as of 11/23/2023) Resolved Problems Problem Noted Date Diagnosed Date Resolved Date Excessive hair growth 11/03/20222022 Breast pain in female 11/03/20222022 Nephrostomy status 07/09/2017 05/10/201 8 Screening for diabetes mellitus 06/13/2017 08/02/2017 [...] as of this encounter (statuses as of 11/23/2023) Immunizations Name Administration Dates Next Due COVID-19 mRNA, LNP-s, No Pre serve, 2-Dose Series (Invenias) 04/08/2021,04/04/2020,03/15/2020 HEPATITIS B VACCINE, RECOMB, 20 MCG/ML, [...] encounter Miscellaneous Notes * Telephone Encounter - Uyen Hernandez LPN - 11/23/2023 1:39 PM EDT Forms faxed to [phone] * Telephone Encounter - Jai Gabriel MD - 11/23/2023 12:22 PM EDT FMLA paperwork received. Filled out. Please send in and then place into scanning documented in this encounter Plan of Treatment Upcoming Encounters Date Type Department Care Team (Latest Contact Info) Description 4 10:45 AM EDT Hospital Encounter ENDO [facility], Endoscopy Room [facility] [address] [place] [phone] Siri Reeves DO [address] [place] [address] 4 10:45 AM EDT - 4 11:15 AM EDT Surgery ENDO [facility], Endoscopy Room [facility] [address] [place] [phone] Siri Reeves DO [address] [place] [address] ESOPHAGOGASTRODUODENOSCOPY (EGD), FLEXIBLE, TRANSORAL, DIAGNOSTIC 4 9:00 AM EDT Telemedicine Nutrition & Weight Management, [facility] 132 [facility] [place] [address] Joslyn Joyner PA-C 132 [facility] [place] [address] 4 10:00 AM EDT Telemedicine Nutrition & Weight Management, [facility] 132 [facility] [place] [address] [place], Surgery Class Provider [facility] 132 [facility] [place] [address] 4 5:30 PM EDT Nurse Only Ancillary [facility] 132 [facility] [place] [address] Nurse Wang Smith [facility] 132 [facility] [address] 4 2:00 PM EDT Telemedicine Psychology Ajay Malcolm 9 [place] [phone] Mary Garcia PsyD [address] [facility] [place] [address] 4 4:00 PM EDT Nurse Only Ancillary [facility] 132 [facility] [place] [address] Nurse Wang Smith Prac Benjy 132 [facility] [address] 4 8:00 AM EDT Office Visit Sleep Disorders Ctr Benjy [address] [phone] Meseret Price DO 132 [facility], [place] [address] 4 11:20 AM EST Nutrition Services Nutrition & Weight Management, [facility] 132 [facility] [address] Nila Montero RDN 132 [facility] [address] 4 5:30 PM EST Nurse Only Ancillary [address] [address] Luis Nurse Wang Travis [address] [address] 4 4:00 PM EST Nurse Only Ancillary [address] [address] Luis Nurse Wang Travis [address] [address] Scheduled Procedures Name Priority Associated Diagnoses Date/Ti me ESOPHAGOGASTRODUODENOSCOPY ( EGD), FLEXIBLE, TRANSORAL, DIAGNOSTIC BMI 36.0-36.9,adult Morbid obesity (HCC) 11/27/2023 10:45 AM EDT Health Maintenance Due Date Last Done Comments Pneumococcal Vaccine: Pediatrics (0 to 5 Years) and At-Risk Patients (6 to 64 Years) (1 of 2 - PCV) 1986 COVID-19 Vaccine (2022-24 season) 2022 04/08/2021, 04/04/2020, 03/15/2020 Mammogram 11/02/2023 11/01/2022, 08/0 11/2022, 01/01/2020, Additional history exists Influenza Vaccine (FLU shot) (#1) 2023 01/31/2023, [...] this encounter Medical Devices Implanted Type Area Hebrew Cantor Device Identifier Shelf Expiration Date Model / Serial / Lot Ureteral Stent (Inlay [place]) Implanted:Qty: 1 on 03/14/2013 at OR [facility] Right: Ureter 06/23/2017 / [id number] / [id number] documented as of this encounter Advance Directives Documents on File Type Date Recorded Patient Payable Representative Expl anation Power of Kindergarten Instructional Assistant 12/28/2021 Rico Callaway POWER OF A TTORNEY [...] Agents on File Name Relationship Healthcare Agent [facility] p Communication Rico Callaway Spouse Health Care Agent Care Teams Cobol Developer Relationship Specialty Start Date End Date July, Rob Shelton MD [address] [place] [address] PCP - General Family Medicine 10/05/23 documented as of this encounter
--- OUTSIDE RECORDS SUMMARY | 2023-12-20 06:19 | External Medical Summary | Summary of Care ---
Author Name Unknown Organization [facility] Address [address] [place] [address] Phone [phone] Care Team Providers Care White Lead Grinder Name Role Phone Rob Mackenzie MD Primary Care Provider [phone] Encounter Details Date Type Department Care Team (Late st Contact Info) Description 11/28/2023 Telephone Family Practice [facility] [address] [facility] [place] [address] Justina Garrett CRNP [address] [facility] [address] Allergies Active Allergy Reactions Criticality Noted [...] mcgIndications:Vitamin B 12 deficiency 1000 mcg IM [id number] 11/28/2023 10/29/2024 Active documented as of this [...] 5:30 PM EDT Immunization/Injection Ancillary Margarita Smith, [place] [address] [place] [address] Nurse Wang Smith 132 [place] [address] Arrived 12/04/2023 9:00 AM EDT Telemedicine [facility] [place] [address] Joslyn Joyner PA-C 132 [facility] [place] [address] 12/04/2023 10:00 AM EDT Telemedicine Nutrition & Weight Management, [address] [place] [address] [facility], Surgery Class Provider Benjy [address] [place] [address] [place] [address] 12/06/2023 8:00 AM EDT Office Visit Sleep Disorders Ctr [facility] 132 [facility] [place] [phone] Elizabeth White CRNP 132 [facility] [place] [address] 12/19/2023 5:30 PM EDT Nurse Only Ancillary [facility] 132 [facility] [place] [address] Nurse Wang Smith [address] [place], [place] [address] [address] 01/01/2024 2:00 PM EDT Telemedicine Psychology [facility] [place] [address] [place] [phone] Mary Garcia, [place] [address] [place] [address] 01/18/2024 4:00 PM EDT Nurse Only Ancillary [facility] 132 [facility] [place] [address] Nurse Wang Smith [address] [place], [place] [address] [address] 02/12/2024 11:20 AM EST Nutrition Services Nutrition & Weight Management, [facility] 132 [facility] [address] Nila Montero, AMELIA [address] [facility] [place] [address] 02/20/2024 5:30 PM EST Nurse Only Ancillary [facility] 132 [facility] [address] Nurse Wang Smith 132 [facility] [address] 02/27/2024 8:00 AM EST Office Visit [facility]umat[facility] [address] [facility] [place] [address] Jai Gabriel MD [facility] [place] [address] 03/21/2024 4:00 PM EST Nurse Only [facility] 132 [facility] [address] Nurse Wang Smith 132 [facility] [address] Health Maintenance Due Date Last Done Comments [...] this encounter Medical Devices Implanted Type Area [employer] Device Identifier Shelf Expiration Date Model / Serial / Lot Ureteral Stent (Inlay [place]) Implanted:Qty: 1 on 03/14/2013 at [facility] Right: Ureter 06/23/2017 / [id number] / [id number] documented as of this encounter Visit Diagnoses Diagnosis Vitamin B 12 deficiency- Primary Other B-complex deficiencies documented in this encounter Advance Directives Documents on File Type Date Recorded Patient Livestock Slaughterer Expl anation Power of Regional Company Truck Driver 12/28/2021 Rico Callaway POWER OF A TTORNEY [...] Callaway Spouse Health Care Agent Care Teams White Lead Grinder Relationship Specialty Start Date End Date July, Rob Shelton MD [address] [place] [facility] [place] [address] PCP - General Family Medicine 10/05/23 documented as of this encounter
--- OUTSIDE RECORDS SUMMARY | 2023-12-20 06:19 | External Medical Summary | Summary of Care ---
Author Name Unknown Organization [facility] Address [address] [place] [address] Phone [phone] Care Team Providers Care Lending Advisor Name Role Phone Rob Mackenzie MD Primary Care Provider [phone] Reason for Visit * Reason Comments Rheum Follow Up Encounter Details Date Type Department Care Team (Late st Contact Info) Description 10/23/2023 8:20 AM EDT Telemedicine Rheumatology [place] [address] [email or web address] [place] [address] Aristeo Brower MD [facility] [place] [address] Polyarthritis*; Encounter for long-term (current) use of medications Allergies Active Allergy Reactions Criticality Noted Date [...] Tablet by mouth daily. 90 Tablet 3 12/27/2022 4 Discontinue d(Refill) Spironolactone 25 MG Oral Tablet (Aldactone)Indicat ions:Migraine variant, intractable Take 1 Tablet by mouth in the morning. 30 Tablet 11 01/04/2023 4 Discontinue d(Refill) Hydroxychloroquine Sulfate 200 MG Oral Tablet (Plaquenil)Indicat ions:Polyarthritis Take 1 Tablet by mouth at bedtime. 90 Tablet 3 06/20/2023 4 Discontinue d(Refill) traMADol HCl 50 MG Oral Tablet (Ultram)Indication s:Polyarthritis Take 1 Tablet by mouth every 6 hours as needed for Pain, Severe. 15 Tablet 06/25/2023 4 Discontinue d(Medicatio n List Clean Up) HYDROcodone-Acetam inophen 5-325 MG Oral TabletIndications: Polyarthritis Take 1 Tablet by mouth every 8 hours as needed for Pain, Severe. 15 Tablet 10/17/2023 4 Discontinue d(Refill) predniSONE 10 MG Oral Tablet (Deltasone)Indicat ions:Polyarthritis Take 5 tabs for 2 days, 4 tabs for 2 days, 3 tabs for 2 days, 2 tabs for 2 days 1 tab for 2 days 30 Tablet 10/17/2023 4 Discontinue d(Refill) HYDROcodone-Acetam inophen 5-325 MG Oral TabletIndications: Polyarthritis Take 1 Tablet by mouth every 8 hours as needed for Pain, Severe. 15 Tablet 10/23/2023 4 Discontinue d(Refill) HYDROcodone-Acetam inophen 5-325 MG Oral TabletIndications: Polyarthritis Take 1 Tablet by mouth every 8 hours as needed for Pain, Severe. 15 Tablet 10/23/2023 4 Discontinue d(Refill) documented as of this encounter (statuses as [...] mRNA, LNP-s, No Pre serve, 2-Dose Series (ZAOZAO) 04/08/2021,04/04/2020,03/15/2020 DTP Vaccine 02/27/1986, 3,08/04/1981,05/03,03/03/1981 Diptheria/Tetanus (Adult) 11/10/1995 HEPATITIS B VACCINE, RECOMB, 20 MCG/ML, ADULT (HEPLISAV-B) 08/22/2022,07/17/2022 Hepatitis B, 20+ yrs 10/17/2000 11/17/2000 MMR - Measles/Mumps/Rubella Vaccine 04/18/1982 OPV - Polio Virus Vaccine (Oral) 986,08/15/1982,05/03/1981,03/03 PPD 10/15/2000,02/27/1986,10/04/1981 Seasonal Influenza, PF, 6 M & above, IM , (FluLaval or Fluzone) 01/31/2023,02/07/2022 Seasonal Influenza, QUAD, wi th Preserv, 6 mons & Above, 0.5 mL, IM 01/29/2017 Seasonal Influenza, Quadriva lent, No Preserve, IM 01/13/2021,02/06/2020,01/21/2019,01/02,01/22/2017 Seasonal Influenza, Trivalen t, (IIV3), with Preserv, (Fluzone) 02/01/2016,01/26/2015,01/07/2014,01/07,12/27/2011,02/08/2011,12/28/2009 ,12/10/2008,04/02/2008 TD, Preservative Free 04/17/2018 TDAP, Age 7 [...] as of this encounter Progress Notes * Aristeo Brower MD - 10/23/2023 8:16 AM EDT Patient location: HOME. I was in a hospital or clinic location. After connecting through [employer],patient was verified with two unique identifiers. Patient (or authorized legal customer relations representative) was then informed that this was a Telemedicine visit and being conducted confidentially over secure lines. Methods to assure confidentiality were taken. Patient acknowledged consent and understanding of pr ivacy and security of the Telemedicine visit. The patient agreed to participate. Subjective: Patient seen today for further follow up evaluation of seronegative polyarthritis. Since the last visit she had increased flares the last 2 to 3 weeks. She has pain and swelling to the right thumb, right ankle. She also has pain in right wrist, left hip. She is having a hard time walking. She is now taking plaquenil 400mg for a little more than 1 month. She is dealing with more stress lately and feels that is contributing to it. She is gong through a divorce and just moved out. She has missed work as well. Has a nasal sore on the left side. Gets rash on her face. She is on a steroid taper - does not seem to be helping as much. She is half way through taper. She sent pictures of her right ankle - it is swollen today and stiff. Has been using vicodin - this does help. She tries to avoid NSAIDs as she only 1 kidney. She is wondering about possible injection of Toradol if she is not better by the end of the week. In the past this is helped. She has used 30 mg and tolerated it. The 60 mg dose caused more kidney dysfunction. Musculoskeletal ROS: . Abnormal: joint pain and joint swelling . AM stiffness (hours): all day . Pain scale (0-10): 8 Other ROS: . Constitutional: normal . Head normal . Eyes: normal . Ears, nose, throat, mouth: mouth ulcers and nasal ulcers . Cardiovascular: normal . Respiratory: normal . Gastrointestinal: normal . Genitourinary: normal . Skin: rash . Neurologic: normal All other ros reviewed and negative Social History: Social History Tobacco Use Smoking status: Never Passive exposure: Past Smokeless tobacco: Never Tobacco comments: Parents smoke in home Substance Use Topics Alcohol use: Yes Comment: two a month Vaping/E-Cigarette Use Vaping/E-Cigarette Use Never User Vaping/E-Cigarette Substances Vaping/E-Cigarette Devices working Current Outpatient Medications Medication Sig Dispense Refill Citalopram Hydrobromide 40 MG Oral Tablet (CeleXA) Take 1 Tablet by mouth daily. 90 Tablet 3 Spironolactone 25 MG Oral Tablet (Aldactone) Take 1 Tablet by mouth in the morning. 30 Tablet 11 Hydroxychloroquine Sulfate 200 MG Oral Tablet (Plaquenil) Take 1 Tablet by mouth at bedtime. 90 Tablet 3 Fluorouracil 5 % External Cream (Efudex) Apply topically to affected area 2 times a day. Apply to affected area once per day as needed 40 g 0 traMADol HCl 50 MG Oral Tablet (Ultram) Take 1 Tablet by mouth every 6 hours as needed for Pain, Severe. 15 Tablet 0 Pantoprazole Sodium 40 MG Oral Tablet Delayed Release (Protonix) TAKE ONE TABLET BY MOUTH EVERY MORNING 90 Tablet 3 HYDROcodone-Acetaminophen 5-325 MG Oral Tablet Take 1 Tablet by mouth every 8 hours as needed for Pain, Severe. 15 Tablet 0 predniSONE 10 MG Oral Tablet (Deltasone) Take 5 tabs for 2 days, 4 tabs for 2 days, 3 tabs for 2 days, 2 tabs for 2 days 1 tab for 2 days 30 Tablet 0 No current facility-administered medications for this visit. Physical Exam: There were no vitals taken for this visit. General: alert, no distress, and well nourished HENT: normocephalic, external ears normal Eye Exam: EOMI, conjunctiva are pink and non-injected, sclera clear Musculoskeletal Exam: No definite synovitis of the right thumb noted on video - no dactylitis either Assessment: (M13.0) Polyarthritis (primary encounter diagnosis) (Z79.899) Encounter for long-term (current) use of medications She is noting more flares related to stress. Having some benefit from steroids. Discussed using [id number] anti-inflammatories for short term braces to see if it helps. Will refill Vicodin. Will give Plaquenil few more months. If overall not beneficial will consider methotrexate. Plan: 1. Continue Plaquenil 2. Refilled Vicodin 3. Finish out prednisone taper 4. Discussed anti-inflammatory use 5. May need to consider methotrexate in the future 6. Return to clinic in February Aristeo Brower MD Department of Rheumatology documented in this encounter Miscellaneous Notes * Addendum Note - Aristeo Brower MD - 10/23/2023 9:21 AM EDTAddended by: ARISTEO BROWER on: 10/23/2023 09:21 AM Modules accepted: Orders documented in this encounter Plan of Treatment Upcoming Encounters Date Type Department Care Team (Latest Contact Info) Description 4 10:45 AM EDT Hospital Encounter ENDO [facility], Endoscopy Room [facility] [address] [place] [phone] Siri Reeves DO [address] [place] [address] 09/03/202 4 10:45 AM EDT - 4 11:15 AM EDT Surgery ENDO [facility], Endoscopy Room [facility] [address] [place] [phone] Siri Reeves DO [address] [place] [address] ESOPHAGOGASTRODUODENOSCOPY (EGD), FLEXIBLE, TRANSORAL, DIAGNOSTIC 4 9:00 AM EDT Telemedicine Nutrition & Weight Management, [facility] [address] [facility] [place] [address] Joslyn Joyner PA-C [address] [place] [address] 4 10:00 AM EDT Telemedicine Nutrition & Weight Management, [facility] [address] [facility] [place] [address] [facility], Surgery Class Provider Benjy 132 [facility] [place] [address] 4 5:30 PM EDT Nurse Only Ancillary [facility] 132 [facility] [place] [address] Nurse Wang Smith 132 [facility] [address] 4 2:00 PM EDT Telemedicine Psychology Ajay Malcolm [address] [place] [phone] Mary Garcia PsyD [address] [facility] [address] 4 4:00 PM EDT Nurse Only Ancillary [facility] 132 [facility] [place] [address] Nurse Wang Smith [facility] [address] 4 8:00 AM EDT Office [facility] 132 [facility] [phone] Meseret Price DO 132 [facility], [place] [address] 4 11:20 AM EST Nutrition Services Nutrition & Weight Management, [facility] 132 [facility] [place] [address] Nila Montero RDN 132 [facility] [address] 4 5:30 PM EST Nurse Only Ancillary [address] [address] Nurse Wang Smith [address] [address] 4 4:00 PM EST Nurse Only Ancillary [address] [place] [address] Luis Nurse Wang Travis [address] [address] Scheduled Procedures Name Priority Associated Diagnoses Date/Ti me ESOPHAGOGASTRODUODENOSCOPY ( EGD), FLEXIBLE, TRANSORAL, DIAGNOSTIC BMI 36.0-36.9,adult Morbid obesity (HCC) 11/27/2023 10:45 AM EDT Health Maintenance Due Date Last Done Comments Pneumococcal Vaccine: Pediatrics (0 to 5 Years) and At-Risk Patients (6 to 64 Years) (1 of 2 - PCV) 1986 COVID-19 Vaccine (2022-24 season) 2022 04/08/2021, 04/04/2020, 03/15/2020 Mammogram 11/02/2023 11/01/2022, 080 11/2022, 01/01/2020, Additional history exists Influenza Vaccine [...] this encounter Medical Devices Implanted Type Area Gutter Installer Device Identifier Shelf Expiration Date Model / Serial / Lot Ureteral Stent (Inlay [place]) Implanted:Qty: 1 on 03/14/2013 at [facility] Right: Ureter 06/23/2017 / 6X24 / [id number] documented as of this encounter Visit Diagnoses Diagnosis Polyarthritis- Primary Unspecified polyarthropathy or polyarthritis, site unspecified Encounter for long-term (current) use of medications Encounter for long-term (current) use of other medications BMI 36.0-36.9,adult Body Mass Index 36.0-36.9, adult Morbid obesity (HCC) Morbid obesity documented in this encounter Advance Directives Documents on File Type Date Recorded Patient Bacteriologist Medical Expl anation Power of Pharmacist Manager 12/28/2021 Rico Callaway POWER OF A TTORNEY [...] Callaway Spouse Health Care Agent Care Teams Lending Advisor Relationship Specialty Start Date End Date July, Rob Shelton MD [address] [place] [address] PCP - General Family Medicine 10/05/23 documented as of this encounter
--- OUTSIDE RECORDS SUMMARY | 2023-12-20 06:19 | External Medical Summary | Summary of Care ---
Author Name Unknown Organization [facility] Address [address] [place] [address] Phone [phone] Care Team Providers Care Traffic Or System Dispatcher Name Role Phone Rob Mackenzie MD Primary Care Provider [phone] Reason for Visit * Reason Comments Medication Administration Encounter Details Date Type Department Care Team (Late st Contact Info) Description 11/28/2023 5:30 PM EDT Immunization/In jection [facility] [address] [place] [address] [facility], Nurse [facility] [address] [place] [address] B12 deficiency* Allergies Active Allergy Reactions Criticality Noted Date [...] mcgIndications:Vitamin B 12 deficiency 1000 mcg IM [id number] 11/28/2023 10/29/2024 Active documented as of this [...] AM EDT Telemedicine Nutrition & Weight Management, [facility] [address] [address] Joslyn Joyner PA-C [address] [address] 12/04/2023 10:00 AM EDT Telemedicine Nutrition & Weight Management, [facility] [address] [address] [facility], Surgery Class Provider Benjy [address] [address] 12/06/2023 8:00 AM EDT [facility] [phone] Elizabeth White CRNP 132 [facility] [place] [address] 12/19/2023 5:30 PM EDT Nurse Only [facility] [address] [facility] [place] [address] Luis, Nurse Wang Travis Benjy [address] [place], [place] [address] [address] 01/01/2024 2:00 PM EDT Telemedicine [facility] [address] [place] [id number] Mary Garcia PsyD [address] [place] [address] 01/18/2024 4:00 PM EDT Nurse Only Ancillary [facility] [address] [facility] [place] [address] Nurse Wang Smith Benjy [address] [place], [place] [address] [address] 02/12/2024 11:20 AM EST Nutrition Services Nutrition & Weight Management, [facility] [address] [facility] [address] Nila Montero RDN [facility] [address] 02/20/2024 5:30 PM EST Nurse Only Ancillary [facility] [address] [facility] [address] Nurse Wang Smith Benjy [address] [place], [place] [address] [address] 02/27/2024 8:00 AM EST Office Visit Rheumatology [place] [id number] [email or web address] [place] [address] Jai Gabriel MD [address] [place] [address] [place] [address] 03/21/2024 4:00 PM EST Nurse Only Ancillary [facility] [address] [place] [address] [facility], Nurse Fam Thaddeus Burleson [address] [place] [address] Health Maintenance Due Date Last Done Comments [...] this encounter Medical Devices Implanted Type Area Director Nursing Service Device Identifier Shelf Expiration Date Model / Serial / Lot Ureteral Stent ([employer] [place]) Implanted:Qty: 1 on 03/14/2013 at OR [facility] Right: Ureter 06/23/2017 / [id number] / [id number] documented as of this encounter Visit Diagnoses Diagnosis B12 deficiency- Primary Other B-complex deficiencies documented in this encounter Administered Medications Active Administered Medications - up to 3 most recent administrations Medication Order MAR Action Action Date Dose Rate Site Vitamin B-12 (Cyanocobalamin) inj 1,000 mcg 1,000 mcg, Intramuscular, [id number], First dose on Sun11/28/23 at 1200, Last dose on Sun10/01/24 at 1200, For 12 doses Given 11/28/2023 1:32 PM EDT 1,000 mcg Deltoid Right Upper documented in this encounter Advance Directives Documents on File Type Date Recorded Patient Lacing Cutter Expl anation Power of Cloth Bleaching Supervisor 12/28/2021 Rico Callaway POWER OF A [...] Callaway Spouse Health Care Agent Care Teams Traffic Or System Dispatcher Relationship Specialty Start Date End Date July, Rob Shelton MD [address], [place] [id number] PCP - General Family Medicine 10/05/23 documented as of this encounter
--- OUTSIDE RECORDS SUMMARY | 2023-12-20 06:19 | External Medical Summary | Summary of Care ---
Author Name Unknown Organization [facility] Address [address] [place] [address] Phone [phone] Care Team Providers Care Evp Chief Exploration Officer Name Role Phone Rob Mackenzie MD Primary Care Provider [phone] Reason for Visit * Auth/Cert Specialty Diagnoses / Procedures Referred By Sanjana denise Referred To Contact Diagnoses BMI 36.0-36.9,adult Morbid obesity (HCC) BMI 36.0-36.9,adult [Z68.36] Morbid obesity (HCC) [E66.01] Procedures EGD, FLEXIBLE, DIAGNOSTIC ESOPHAGOGASTRODUODENOSCOPY (EGD), FLEXIBLE, TRANSORAL, DIAGNOSTIC Marie Michael MD [address] [place] [address] [place] [address] [facility] [address] [place] [phone] Referral ID Status Reason Start Date Expiration Date Visits Re quested Visits Authorized [id number] Encounter Details Date Type Department Care Team (Latest Contact Info) Description 11/27/2023 9:38 AM EDT - 11/27/2023 11:36 AM EDT Hospital Encounter [facility], Endoscopy Room [facility] [address] [place] [phone] Siri Reeves DO [address] [id number] Upper GI Endoscopy Discharge Disposition: Home - Self Care Allergies Active Allergy Reactions Criticality Noted Date Comments Adhesive Tape 11/15/2006 "like a burn" Morphine Sulfate Hives 12/30/2009 Other Allergy (See Comments) Rash 018 Dermabond Adhesive documented as of this encounter (statuses as of 11/27/2023) Medications Medication Sig Dispensed Refills Start Date [...] 11/14/2023 Active predniSONE 10 MG Oral Tablet (Deltasone)Indicat [...] for Pain, Severe. 15 Tablet 11/23/2023 Active Hydroxychloroquine Sulfate 200 MG Oral Tablet (Plaquenil)Indicat ions:Polyarthritis Take 1 Tablet by mouth at bedtime. 90 Tablet 3 06/20/2023 Discontinue d(Refill) HYDROcodone-Acetam inophen 5-325 MG Oral TabletIndications: Polyarthritis Take 1 Tablet by mouth every 8 hours as needed for Pain, Severe. 15 Tablet 11/16/2023 Discontinue d(Refill) documented as of this encounter (statuses as of 11/27/2023) Active Problems Problem Noted Date Diagnosed Date [...] as of this encounter (statuses as of 11/27/2023) Resolved Problems Problem Noted Date Diagnosed Date [...] as of this encounter (statuses as of 11/27/2023) Immunizations Name Administration Dates Next Due COVID-19 [...] 09/11/2022 Does the household have a re lar source of income? (Household - for ages [...] Sign Reading Time Taken Comments Blood Pressure 110/76 11/27/2023 11:14 AM EDT Pulse 68 11/27/2023 11:14 AM EDT Temperature 36.1 C (97 F) 11/27/2023 11:14 AM EDT Respiratory Rate 18 11/27/2023 11:14 AM EDT Oxygen Saturation 98% 11/27/2023 11:14 AM EDT Inhaled Oxygen Concentration - - Weight 104.3 kg (230 lb) 11/27/2023 9:54 AM EDT Height 169.5 cm (5' 6.73") 11/27/2023 9:54 AM ED T Body Mass Index 36.31 11/27/2023 9:54 AM EDT documented in this encounter Functional [...] No 09/19/2017 documented as of this encounter H&P Notes * Siri Reeves, - 11/27/2023 10:37 AM EDT Endoscopy Pre-Procedure Assessment Name: Gabbi Callaway Date: 11/27/2023 Time: 10:37 AM Procedure: Upper GI Endoscopy; with Indication(s) of pre-bariatric surgery Endoscopy Pre-Procedure Assessment: Prior to the procedure, the patient was identified. The patient's history, medications and allergies were reviewed as per the Anesthesia Assessment. The patient is competent. The risks and benefits of the proposed procedure and the planned sedation were discussed with the patient. All questions were answered and informed consent for the procedure was obtained. This patient has undergone a preprocedural evaluation. A determination has been made to proceed with the planned procedure under [facility] procedural guidelines and the CMS Non-Emergent, Elective Medical Services and Treatment Recommendations (published on 07-01-19). The community and hospital prevalence of COVID-19 has been discussed as well as this patient's specific risks associated with SARS-CoV-19 infection. Based upon the clinical acuity and patient-specific care considerations, this procedure is deemed a Tier II - Intermediate acuity treatment or service with either progression or the threat of progressive disease related to the delay in treatment. Not providing the service has the potential for increasing morbidity or mortality. BP 106/69 | Pulse 74 | Temp 37.1 C (98.7 F) (Tympanic) | Resp 16 | Ht 1.695 m (5' 6.73") | Wt 104.3 kg (230 lb) | SpO2 100% | BMI 36.31 kg/m | BSA 2.22 m Prior to Admission medications Medication Sig Last Dose Discont. HYDROcodone-Acetaminophen 5-325 MG Oral Tablet Take 1 Tablet by mouth every 8 hours as needed for Pain, Severe. Past Week Hydroxychloroquine Sulfate 200 MG Oral Tablet (Plaquenil) Take 1 Tablet by mouth in the morning and1 Tablet before bedtime. 11/26/2023 predniSONE 10 MG Oral Tablet (Deltasone) Take 5 tablets by mouth for 2 days, 4 tabs for 2 days, 3 tabs for 2 days, 2 tabs for 2 days 1 tab for 2 days Past Week Spironolactone 25 MG Oral Tablet (Aldactone) Take 1 Tablet by mouth in the morning. 11/26/2023 Citalopram Hydrobromide 40 MG Oral Tablet (CeleXA) Take 1 Tablet by mouth daily. 11/26/2023 Pantoprazole Sodium 40 MG Oral Tablet Delayed Release (Protonix) TAKE ONE TABLET BY MOUTH EVERY MORNING 11/26/2023 Fluorouracil 5 % External Cream (Efudex) Apply topically to affected area 2 times a day. Apply to affected area once per day as needed Patient not taking: Reported on 11/16/2023 Not Taking Review of patient's allergies indicates: Allergen Reactions Adhesive Tape "like a burn" Morphine Sulfate Hives Other Allergy (See Comments) Rash Dermabond Adhesive Physical Exam: Mental Status Examination: alert and oriented. General: nad, calm Airway Examination: normal oropharyngeal airway and neck mobility. Respiratory Examination: symmetrical excursion Cardiac: RRR, no murmurs Abd:soft/ntd ASA Grade: II - A patient with mild systemic disease. After reviewing the risks and benefits, the patient was deemed in satisfactory condition to undergothe procedure. The anesthesia plan was to use general anesthesia. Siri Reeves DO Gastroenterology and Hepatology 11/27/2023 documented in this encounter Procedure Notes * Joslyn Joyner PA-C - 11/27/2023 10:37 AM EDTAssociated Order(s): UPPER GI ENDOSCOPY [facility] Patient Name: Gabbi Callaway Procedure Date: 11/27/2023 10:37 AM Date of : 1980 Admit Type: Outpatient Note Status: Finalized Date of : 1980 Admit Type: Outpatient Age: 42 Room: Endo 2 Gender: Female Note Status: Finalized Procedure: Upper GI endoscopy Indications: Preoperative assessment for bariatric surgery to treat morbid obesity Providers: Siri Reeves DO (Doctor) Patient Profile: This is a 42 year old female. Refer to note in patient chart for documentation of history and physical. Referring MD: [place] (Referring MD), Rob Mackenzie (Referring MD) Medicines: General Anesthesia Complications: No immediate complications. Procedure: Pre-Anesthesia Assessment: - Prior to the procedure, a History and Physical was performed, and patient medications and allergies were reviewed. The risks and benefits of the procedure and the sedation options and risks were discussed with the patient. All questions were answered and informed consent was obtained. Patient identification and proposed procedure were verified by the physician, the nurse and the night warehouse selector in the procedure room. Mental Status Examination: alert and oriented. Airway Examination: Mallampati Class II (the uvula but not tonsillar pillars visualized). Respiratory Examination: clear to auscultation. CV Examination: RRR, no murmurs, no S3 or S4. Prophylactic Antibiotics: The patient does not require prophylactic antibiotics. Prior Anticoagulants: The patient has taken no anticoagulant or antiplatelet agents. ASA Grade Assessment: II - A patient with mild systemic disease. After reviewing the risks and benefits, the patient was deemed in satisfactory condition to undergo the procedure. The anesthesia plan was to use general anesthesia. Immediately prior to administration of medications, the patient was re-assessed for adequacy to receive sedatives. The physical status of the patient was re-assessed after the procedure. After obtaining informed consent, the endoscope was passed under direct vision. All instruments were visually inspected immediately before and after removal from the patient to ensure they are fully intact. Throughout the procedure, the patient's blood pressure, pulse, and oxygen saturations were monitored continuously. The upper GI endoscopy was accomplished without difficulty. The patient tolerated the procedure well. The [id number]-[id number] Endoscope ([id number]) was introduced through the mouth, and advanced to the second part of duodenum. Findings & Specimens: The Z-line was regular and was found 36 cm from the incisors. The examined esophagus was normal. Multiple large sessile polyps were found in the entire examined stomach. Biopsies were taken with a cold forceps for histology. Verification of patient identification for the specimen was done by the physician and nurse using the patient's name and date. The pathology specimen was placed into Bottle Number 2. The exam of the stomach was otherwise normal. Biopsies were taken with a cold forceps in the entire examined stomach for Helicobacter pylori testing. The pathology specimen was placed into Bottle Number 1. The duodenal bulb and second portion of the duodenum were normal. Impression: - Z-line regular, 36 cm from the incisors. - Normal esophagus. - Multiple gastric polyps. Biopsied. - Normal duodenal bulb and second portion of the duodenum. - Biopsies were taken with a cold forceps for Helicobacter pylori testing. Recommendation: - Patient has a contact number available for emergencies. The signs and symptoms of potential delayed complications were discussed with the patient. Return to normal activities tomorrow. Written discharge instructions were provided to the patient. - The patient will be observed post-procedure, until all discharge criteria are met. - Discharge patient to home. - Continue present medications. - Await pathology results. Siri Reeves DO 11/27/2023 10:59:05 AM This report has been signed electronically. documented in this encounter Nursing Notes * Aimee Moss RN - 11/27/2023 11:34 AM EDT Patient is alert, pain free,and tolerating po fluids prior to discharge. Patient has been visited by Dr. Reeves. Patient has received and demonstrates understanding of discharge instructions. Patient is transported via walking to private auto accompanied by endo staff. * Holland Toney RN - 11/27/2023 10:58 AM EDT Specimen(s) and location(s) verified with physician post procedure 10:58 AM Holland Toney RN See anesthesia record for medication administered during procedure. Holland Toney RN Pre cleaning of scope at the bedside started by network support technician. * Aimee Moss RN - 11/27/2023 10:58 AM EDT Patient asleep but arouses to verbal stimuli. Tolerated anesthesia and procedure well. * Bisi Kennedy RN - 11/27/2023 10:11 AM EDT The following pt discharge instructions reviewed with pt prior to prodedure: No driving today. No alcohol today. No signing of legal documents. Rest as much as possible today and can return to normal activities tomorrow. No operating any heavy equipment today. Diet as tolerated. Pt verbalized understanding. documented in this encounter Plan of Treatment Upcoming Encounters Date Type Department Care Team (Late st Contact Info) Description 12/04/2023 9:00 AM EDT Telemedicine Nutrition & Weight Management, [facility] [address] [facility] [place] [address] Joslyn Joyner PA-C [address] [facility] [place] [address] 12/04/2023 10:00 AM EDT [facility]icine [facility], [facility] [address] [facility] [place] [address] [facility], Surgery Class Provider [facility] [place] [address] 12/19/2023 5:30 PM EDT Nurse Only Ancillary [facility] [address] [facility] [address] 01/01/2024 2:00 PM EDT Telemedicine Psychology [place] , [place] [address] [place] [phone] Mary Garcia PsyD [address] [place] [facility] [address] 01/18/2024 4:00 PM EDT Nurse Only [facility] [address] [facility] Wang [facility] [address] 01/25/2024 8:00 AM EDT Office Visit Sleep Disorders Ctr [address]y [address] [phone] Meseret Price DO 132 [place] [address] 02/12/2024 11:20 AM EST Nutrition Services Nutrition & Weight Management, [facility] [address] [facility] [address] Nila Montero RDN 132 [place] [address] 02/20/2024 5:30 PM EST Nurse Only [facility] [address] [facility] [place] [facility] [address] 02/27/2024 8:00 AM EST Office Visit Rheumatology [address], [place] [address] Jai Gabriel MD [address] [employer] [place], [place] [address] 03/21/2024 4:00 PM EST Nurse Only Ancillary Margarita Smith [place] [address] [place] [address] [facility], Nurse Wang Travis Benjy [address] [place] [address] Pending Results Name Type Priority Associated Diagnoses Date /Time SURGICAL PATHOLOGY Pathology Routine BMI 36.0-36.9,adult Morbid obesity (HCC) 11/27/2023 10:57 AM EDT Scheduled Orders Name Type Priority Associated Diagnoses Orde r Schedule SURGICAL PATHOLOGY Pathology Routine BMI 36.0-36.9,adult Morbid obesity (HCC) Release Upon Ordering for 1 Occurrences starting 11/27/2023, 1 completed Scheduled Procedures Name Priority Associated Diagnoses Date/Ti me ESOPHAGOGASTRODUODENOSCOPY ( EGD), FLEXIBLE, TRANSORAL, DIAGNOSTIC BMI 36.0-36.9,adult Morbid obesity (HCC) 11/27/2023 10:46 AM EDT Health Maintenance Due Date Last Done Comments Pneumococcal Vaccine: Pediatrics (0 to 5 Years) and At-Risk Patients (6 to 64 Years) (1 of 2 - PCV) 1986 Mammogram 11/02/2023 11/01/2022, 08/0 11/2022, 01/01/2020, Additional history exists COVID-19 Vaccine (4 - 2022-24 season) 2023 04/08/2021, 04/04/2020, 03/15/2020 Influenza Vaccine [...] this encounter Medical Devices Implanted Type Area Cement Finishing Supervisor Device Identifier Shelf Expiration Date Model / Serial / Lot Ureteral Stent (Inlay Melvina) Implanted:Qty: 1 on 03/14/2013 at OR [facility] Right: Ureter 06/23/2017 / [id number] / [id number] documented as of this encounter Procedures Procedure Name Priority Date/Time Associated Diagnosis Comments UPPER GI ENDOSCOPY 11/27/2023 10 :37 AM EDT documented in this encounter Results * UPPER GI ENDOSCOPY (11/27/2023 10:37 AM EDT) 11/27/2023 10:3 7 AM EDT Narrative Procedure Note Joslyn Joyner PA-C - 11/27/2023 10:37 AM EDT [facility] Patient Name: Gabbi Callaway Procedure Date: 11/27/2023 10:37 AM Date of : 1980 Admit Type: Outpatient Note Status:Finalized Date of : 1980 Admit Type: Outpatient Age: 42 Room: Endo 2 Gender: Female Note Status: Finalized Procedure: Upper GI endoscopy Indications: Preoperative assessment for bariatric surgery totreat morbid obesity Providers: Siri Reeves DO (Doctor) Patient Profile: This is a 42 year old female. Refer to note inpatient chart for documentation of history and physical. Referring MD: [place] (Referring MD), Mert Mackenzie (Referring MD) Medicines: General Anesthesia Complications: No immediate complications. Procedure: Pre-Anesthesia Assessment: - Prior to the procedure, a History and Physicalwas performed, and patient medications and allergies were reviewed. The risksand benefits of the procedure and the sedation options and risks were discussed withthe patient. All questions were answered and informed consent was obtained. Patientidentification and proposed procedure were verified by the physician, the nurseand the night warehouse selector in the procedure room. Mental Status Examination: alertand oriented. Airway Examination: Mallampati Class II (the uvula but not tonsillarpillars visualized). Respiratory Examination: clear to auscultation. CV Examination:RRR, no murmurs, no S3 or S4. Prophylactic Antibiotics: The patient does notrequire prophylactic antibiotics. Prior Anticoagulants: The patient has taken noanticoagulant or antiplatelet agents. ASA Grade Assessment: II - A patient with mildsystemic disease. After reviewing the risks and benefits, the patient was deemed insatisfactory condition to undergo the procedure. The anesthesia plan was to use generalanesthesia. Immediately prior to administration of medications, the patient wasre-assessed for adequacy to receive sedatives. The physical status of the patient wasre-assessed after the procedure. After obtaining informed consent, the endoscope waspassed under direct vision. All instruments were visually inspected immediatelybefore and after removal from the patient to ensure they are fully intact. Throughout the procedure, the patient's bloodpressure, pulse, and oxygen saturations were monitored continuously. The upper GI endoscopywas accomplished without difficulty. The patient tolerated the procedurewell. The [id number]-[id number] Endoscope ([id number]) was introduced through the mouth, andadvanced to the second part of duodenum. Findings & Specimens: The Z-line was regular and was found 36 cm from the incisors. The examined esophagus was normal. Multiple large sessile polyps were found in the entire examinedstomach. Biopsies were taken with a cold forceps for histology. Verification of patient identificationfor the specimen was done by the physician and nurse using the patient's name and date. Thepathology specimen was placed into Bottle Number 2. The exam of the stomach was otherwise normal. Biopsies were taken with a cold forceps in the entire examinedstomach for Helicobacter pylori testing. The pathology specimen was placed into Bottle Number 1. The duodenal bulb and second portion of the duodenum were normal. Impression: - Z-line regular, 36 cm from the incisors. - Normal esophagus. - Multiple gastric polyps. Biopsied. - Normal duodenal bulb and second portion of theduodenum. - Biopsies were taken with a cold forceps forHelicobacter pylori testing. Recommendation: - Patient has a contact number available foremergencies. The signs and symptoms of potential delayed complications were discussed withthe patient. Return to normal activities tomorrow. Written discharge instructionswere provided to the patient. - The patient will be observed post-procedure,until all discharge criteria are met. - Discharge patient to home. - Continue present medications. - Await pathology results. Siri Reeves, 11/27/2023 10:59:05 AM This report has been signed electronically. Joslyn Joyner PA-C [facility]STRO [facility] documented in this encounter Visit Diagnoses Diagnosis BMI 36.0-36.9,adult Body Mass Index 36.0-36.9, adult Morbid obesity (HCC) Morbid obesity documented in this encounter Administered Medications Inactive Administered Medications - up to 3 most recent administrations Medication Order MAR Action Action Date Dose Rate Site isolyte-S pH 7.4 infusion Intravenous, at 100 mL/hr, Plasma-LYTE 148, isolyte-S, and isolyte-S pH 7.4 are considered equivalent - including for MAR barcode scanning., CONTINUOUS, Starting on Sun11/27/23 at 1045, Until Sun11/27/23 at 1536, Pre-Op Restarted 11/27/2023 10:55 AM EDT New Bag 11/27/2023 10:43 AM EDT 100 mL/hr documented in this encounter Active and Recently Administered Medications Times are shown in EDT. Continuous Medication Order 11/25/2023 11/26/2023 11/27/2023 isolyte-S pH 7.4 infusion Intravenous, at 100 mL/hr, Plasma-LYTE 148, isolyte-S, and isolyte-S pH 7.4 are considered equivalent - including for MAR barcode scanning., CONTINUOUS, Starting on Sun11/27/23 at 1045, Until Sun11/27/23 at 1536, Pre-Op 1043 (New Bag - Prov ider: Veronica Madrigal CRNA)1054 (Paused - Provider: Veronica Madrigal CRNA - Comment: Switch to gravity)8758 (Restarted - Provider: Veronica Madrigal CRNA) documented in this encounter Advance Directives Documents on File Type Date Recorded Patient Product Development Assistant Expl anation Power of Warehouse Shift Supervisor 12/28/2021 Rico Callaway POWER OF A [...] Callaway Spouse Health Care Agent Care Teams Evp Chief Exploration Officer Relationship Specialty Start Date End Date July, Rob Shelton MD [address] [place] [address] PCP - General Family Medicine 10/05/23 documented as of this encounter
[2023-12-20 08:04] LABS: Hematocrit (blood only) 37.3 % (37.0-47.0); Hemoglobin 11.9 g/dl (12.0-16.0); Mean Corpuscular Hemoglobin 29.8 pg (25.0-34.0); Mean Corpuscular Hgb Conc 31.9 g/dL (32.0-36.0); Mean Corpuscular Volume 93.3 fL (80.0-100.0); Mean Platelet Volume 9.8 fL (9.4-12.4); Platelet Count 255 K/uL (130-400); RDW Coefficient of Variation 12.9 % (11.5-14.5); RDW Standard Deviation 43.8 fL (36.4-46.3); White Blood Count 7.43 K/ul (4.8-10.8)
[2023-12-20] MEDS: ASPIRIN 81 MG ECTAB PO SCH (08:11)
[2023-12-20] MEDS: PANTOprazole 40 MG TAB PO SCH (08:11)
[2023-12-20] MEDS: SPIRONOLACTONE 25 MG TAB PO SCH (08:11)
[2023-12-20] MEDS: CITALOPRAM 40 MG TAB PO SCH (08:11)
[2023-12-20 08:42] LABS: Troponin I High Sensitivity < 2.3 pg/ml (0-14)
[2023-12-20 09:23] LABS: Estimated Average Glucose 108 mg/dl; Hemoglobin A1C 5.4 % (4.5-5.6)
[2023-12-20] MEDS: CALCIUM CARBONATE 500 MG CHEWABLE TAB PO SCH (09:24)
[2023-12-20 09:43] LABS: Anion Gap 7 (3-11); Calcium 9.2 mg/dl (8.6-10.3); Carbon Dioxide 27 mmol/L (21-32); Chloride 107 mmol/L (98-107); Magnesium 1.9 mg/dl (1.7-2.4); Sodium 141 mmol/L (136-145)
[2023-12-20 09:49] LABS: Blood Urea Nitrogen 20 mg/dl (6-23); Creatinine Clr Calc Pharmacy 80.9 ml/min; Est GFR (African American) 70.9 ml/min; Est GFR (Non-African American) 61.2 ml/min; Glucose 91 mg/dl (70-99(Fasting))
--- NOTE | 2023-12-20 09:58 | Cardiology Consultation ---
Date of Consultation December 20, 2023 Assessment & Plan (1) Chest pain: (2) HE (dyspnea on exertion): Plan 42 year old female admitted with exertional chest pain and exertional dyspnea, progressive over the last 6 months EKG without acute change. High-sensitivity troponin negative x 3. Imaging of the chest without acute abnormality Telemetry benign Refer for exercise stress echocardiography. Risk factor and lifestyle modification Supervising Physician Co-Signing Physician Notes I have personally performed a history and physical examination on the patient. I have reviewed the advance practitioner's documentation, and I agree with, and take responsibility for the plan of care. 42-year-old female with progressive chest discomfort and shortness of breath. Elevated heart rate with hypoxia noted in the ER. Cardiac enzymes unremarkable. Resting echocardiogram pending. Will proceed with exercise stress echo for further evaluation. Addendum: Exercise stress echo negative for inducible ischemia. Patient can pleated 4 minutes on a standard Ezra protocol. Symptoms reproduced on treadmill without ischemic ECG changes or echocardiographic evidence of ischemia. Recommend two-step evaluation of hypoxia. Consider pulmonary evaluation. With reproduction of symptoms despite negative imaging and ECG, consider outpatient cardiac CT for definitive evaluation of coronary anatomy. Jeronimo Baldwin DO, [facility] History of Present Illness Reason for Consultation: Chest pain Requesting Physician: Dr. Zamudio Attending Physician: Dr. Tristan MD History of Present Illness History of Present Illness: Short of breath x 6 months, around the time phentermine was started for weight loss (no longer taking) Resting heart rates in the 80s, elevating quickly with minimal activity Yesterday at work she found herself short of breath and with retrosternal nonradiating chest pressure with minimal activity, felt near syncope after walking to her car after work No resting or nocturnal chest pain or dyspnea Lower extremity peripheral edema noted with recent course of prednisone for arthritis No cough, chest congestion, orthopnea, PND, dizziness, near-syncope, or syncope EKG on presentation without acute ST segment change. High-sensitivity troponin negative x 3. Resting echocardiography has yet to be completed. Imaging of the chest included a chest x-ray that was without acute process as well as a chest CTA which was negative for PE or aortic catastrophe Patient denies history of hypertension, dyslipidemia, diabetes mellitus, AK, CAD, CHF, arrhythmia, heart murmur, rheumatic fever, or scarlet fever. Past Medical and Surgical History: See below. No prior cardiac history. Family History: Mother is alive and well without cardiac issues. Father, Doe Calhoun, is followed by Dr. Baldwin with significant CAD per patient report. Patient has 1 brother and 1 sister, both without cardiac issues. Maternal and paternal grandparents history unknown. Social History: Never smoker. No smokeless tobacco. Alcohol: 6 pack/month socially. No illegal/illicit drug use. . 3 children. Works at [employer] [facility] Allergies Allergy/AdvReac Type Severity Reaction Status Date / Time morphine Allergy Severe hives Verified 11/21/23 09:46 adhesive Allergy Unknown SKIN Verified 08/06/15 13:28 BLISTERS ,SWELLING WITH TAPE metronidazole Allergy Unknown NASTY Verified 08/06/15 13:48 TASTE MOUTH GI UPSET Sulfa (Sulfonamide AdvReac Unknown NAUSEA AND Verified 08/12/15 17:34 Antibiotics) VOMITING Home Medications Medication Instructions Recorded Confirmed Type citalopram 40 mg tablet 40 mg PO DAILY 12/19/23 12/19/23 History cyanocobalamin (vitamin B-12) 1,000 mcg Q4WK 12/19/23 12/19/23 History 1,000 mcg/mL injection syringe hydroxychloroquine 200 mg tablet 200 mg PO BID 12/19/23 12/19/23 History pantoprazole 40 mg tablet,delayed 40 mg PO DAILY 12/19/23 12/19/23 History release spironolactone 25 mg tablet 25 mg PO DAILY 12/19/23 12/19/23 History Patient History Medical History Rheumatoid arthritis History of endometriosis Complication of nephrostomy Family History Father COPD (chronic obstructive pulmonary disease) Mother Rheumatoid arthritis Social History Smoking Status: Never smoker Hx Alcohol Use: Yes Hx Substance Use: No Preferred Language: Guamanian Communication Ability: Effective 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 HEENT: Glasses. No history of cataracts. No amaurosis fugax. Pulmonary: No history of asthma. No history of sleep apnea. No history of PE Cardiac: See above. GI/Abd: GERD. No dysphagia. Kidney: UPJ obstruction, status post right nephrectomy No liver problems. No history of pancreatic issues. Vascular: No history of carotid artery disease, AAA, or lower extremity claudication/PAD. Hematologic: No coagulation disorder, anemia, or abnormal bleeding. Musculoskeletal: Arthritis Skin: No rash. Neurologic: No history of TIA/CVA. No history of seizure Endocrine: No history of diabetes mellitus. No thyroid trouble. Complete Review of Systems is as stated above, negative, or noncontributory Physical Exam Physical Exam: General: A&Ox3. NAD. HENT: Normocephalic. Atraumatic. Eyes: PER. Conjunctiva pink, sclera clear. Neck: No carotid bruits. No JVD. No HJR. Heart: RRR 80 bpm. No murmur. No rub. No gallop. Lungs: Clear to auscultation. Abdomen: +BS. Soft. Nontender. No masses or organomegaly. Extremities: No clubbing, cyanosis, or edema. Limited neurological examination is without focal deficits. Pulses: radial=2/4, posterior tibial=2/4. Results & Data Vital Signs (Past 12 Hours) Vital Signs Temp Pulse Pulse Resp BP BP Pulse Ox 12/20/23 08:35 87 12/20/23 07:49 36.8 C 82 16 107/71 94 12/20/23 07:32 12/20/23 02:00 36.9 C 91 H 18 96/64 L 96 12/20/23 01:05 12/20/23 01:05 36.8 C 76 18 110/74 97 12/20/23 00:41 82 12/19/23 23:24 93 H 17 97 12/19/23 22:45 74 17 92 12/19/23 22:00 69 18 99 12/19/23 22:00 129/81 12/19/23 22:00 129/81 O2 Del Method O2 Flow Rate 12/20/23 08:35 09/26/24 07:49 Room Air 12/20/23 07:32 Room Air 12/20/23 02:00 Room Air 12/20/23 01:05 Room Air, Nasal Cannula 3 12/20/23 01:05 Room Air 12/20/23 00:41 12/19/23 23:24 12/19/23 22:45 12/19/23 22:00 12/19/23 22:00 12/19/23 22:00 Laboratory Results Cardiac Enzymes 12/19/23 12/19/23 12/20/23 Range/Units 16:05 22:46 07:24 AST 13 (13-39) U/L Troponin I High Sens < 2.3 2.4 < 2.3 (0-14) pg/ml Coagulation 12/19/23 Range/Units 16:05 PT 10.0 (9.0-12.0) Seconds APTT 24 (21-31) Seconds CBC 12/19/23 12/20/23 Range/Units 16:05 07:24 WBC 10.25 7.43 (4.8-10.8) K/ul RBC 4.19 L 4.00 L (4.20-5.40) M/uL Hgb 13.0 11.9 L (12.0-16.0) g/dl Hct 38.1 37.3 (37.0-47.0) % Plt Count 277 255 (130-400) K/uL Neut # (Auto) 9.25 H (1.40-6.50) K/uL Lymph # (Auto) 0.74 L (1.20-3.40) K/uL Harmon # (Auto) 0.21 (0.11-0.59) K/uL Eos # (Auto) 0.00 (0.00-0.50) K/uL Baso # (Auto) 0.01 (0.00-0.20) K/uL Comprehensive Metabolic Panel 12/19/23 12/20/23 Range/Units 16:05 07:24 Sodium 138 141 (136-145) mmol/L Potassium 4.0 4.0 (3.5-5.1) mmol/L Chloride 107 107 (98-107) mmol/L Carbon Dioxide 24 27 (21-32) mmol/L BUN 19 20 (6-23) mg/dl Creatinine 1.20 1.11 (0.6-1.2) mg/dl Glucose 165 H 91 (70-99(Fasting)) mg/dl Calcium 9.4 9.2 (8.6-10.3) mg/dl AST 13 (13-39) U/L ALT 14 (7-52) U/L Alkaline Phosphatase 56 (34-104) U/L Total Protein 7.1 (6.0-8.3) gm/dl Albumin 4.5 (3.4-5.0) gm/dl Intake and Output 12/19/23 12/20/23 12/20/23 22:59 06:59 14:59 Intake Total 300 / 300 Balance 300 / 300 Intake: Oral 300 / 300 Other: Other Intake Source npo Weight 105.1 kg 105 kg Weight Measurement Method Chair Scale Standing Scale Diagnostic Findings Telemetry: Sinus throughout, heart rates predominantly in the 70s to 90s
--- NOTE | 2023-12-20 15:56 | Hospitalist Progress Note ---
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 Before presentation, she developed chest pain on the morning of the day of arrival while at work and was associated with shortness of breath and dizziness. She describes chest pain as retrosternal, nonradiating, heaviness, constant pain. Denies any febrile illness. She is being managed for the following: Chest Pain: R/O ACS SOB w/ exertion Tropx 3neg, Serial ekg w/ no acute ischemic changes. CXR: No acute process. stress test neg for inducible ischemia but symptoms reproduced w/o ischemic ECG changes or echocardiographic evidence of ischemia. f/u echo read. Cardio evaled, recs Pulm eval, consider outpatient cardiac CT for definitive evaluation of coronary anatomy. Pulm consult 2 step test prior to dc. Hyperglycemia: noted at presentation, a1c 5.4 GERD: Continue Protonix, add tums trial to see if chest pain improves. H/O congenital UPJ obstruction: S/P right nephrectomy. Monitor renal function Depression Panic disorder Essential tremor Continue home medications: Celexa PCP planning to transition from Celexa to Cymbalta(not started yet) Palindromic Rheumatism:Continue hydroxychloroquine. Follows with rheumatology Dr. Gabriel DVT Px: Heparin SQ CODE STATUS Full code Admission and Anticipated Discharge Date Admission Date: December 19, 2023 Subjective Patient was seen and examined at bedside. Patient was lying in bed, on room air, NAD, resting comfortably. Patient reports shortness of breath on exertion and ongoing chest pain. Patient denies febrile illness or flulike illness in the recent past. Physical Exam Physical Exam: General Appearance: Obese, no apparent distress Head: normocephalic, Atraumatic Eyes: normal inspection, EOMI Neck: supple, Trachea midline Respiratory/Chest: Normal breath sounds, CTA, No accessory muscle use Cardiovascular: S1, S2, No murmur Abdomen/GI:Soft, Non tender, Bowel sounds present Extremities/Musculoskeletal:normal inspection, no edema Neurologic/Psych:AAOX3, grossly no focal neurological deficits Skin: normal color, warm Results & Data Results & Data Vital Signs (Past 12 Hours) Vital Signs Temp Pulse Pulse Pulse Pulse Resp Resp 12/20/23 13:25 115 H 96 H 20 12/20/23 13:14 36.8 C 88 16 12/20/23 08:35 87 12/20/23 07:49 36.8 C 82 16 12/20/23 07:32 Resp BP Pulse Ox Pulse Ox Pulse Ox O2 Del Method 12/20/23 13:25 18 97 96 12/20/23 13:14 113/78 95 Room Air 12/20/23 08:35 12/20/23 07:49 107/71 94 Room Air 12/20/23 07:32 Room Air
--- NOTE | 2023-12-21 06:04 | Electrocardiogram Report ---
Test Reason : Blood Pressure : */* mmHG Vent. Rate : 82 BPM Atrial Rate : 82 BPM P-R Int : 142 ms QRS Dur : 78 ms QT Int : 354 ms P-R-T Axes : 51 18 15 degrees QTcB Int : 413 ms Normal sinus rhythm Nonspecific T wave abnormality Abnormal ECG When compared with ECG of 19-Dec-2023 16:01, No significant change was found Confirmed by Bulmaro Calzada ([id number]) on 12/21/2023 6:03:44 AM Referred By: REFERRED SELF Confirmed By: Bulmaro Calzada
[2023-12-21] MEDS ORDERED: ACETAMINOPHEN 325 MG TAB PO PRN (06:15)
[2023-12-21] MEDS: KETOROLAC TROMETHAMINE 15 MG/ML VIAL IV ONE (06:27)
[2023-12-21] MEDS: METOCLOPRAMIDE HCL INJ 5 MG/ML 2 ML VIAL IV STA (06:47)
[2023-12-21 07:52] VITALS: RESP 18; TEMP 98.2
--- NOTE | 2023-12-21 09:59 | Pulmonary Consultation ---
Date of Consultation December 21, 2023 Assessment & Plan (1) HE (dyspnea on exertion): Patient with ongoing dyspnea symptoms for the last 6 months. She had been evaluated from a cardiovascular perspective and had an unremarkable stress test performed yesterday. Reviewing her labs and imaging studies, the patient has no parenchymal lung changes on CTA concerning for interstitial lung disease process. Additionally, her pulmonary vasculature is unremarkable for concern for perfusion issue otherwise. She describes no symptoms concerning for asthmatic or reactive airway process. That being said, the patient likely warrant at least a hand-held spirometry which could be performed in the office. Additionally, consideration for exhaled nitric oxide testing for the sake of completion. This certainly is a workup that could be completed in the outpatient setting moving forward. Additionally, would encourage patient to increase activity as tolerated, especially in light of an otherwise unremarkable stress echocardiogram. This information was discussed with the patient who acknowledges understanding. Plan Thank you for allowing us to participate in the care of this pleasant patient. Pulmonary medicine will sign off at this time. Supervising Physician Co-Signing Physician Notes Patient was discharged home prior to me being able to see her. CT chest findings unremarkable. Patient would benefit from outpatient PFTs and possibly exhaled nitric oxide evaluation as noted per HPI. Fortunately, life-threatening things such as significant cardiac disease and pulmonary embolism have been large ruled out thus far. History of Present Illness Reason for Consultation: dyspnea on exertion, neg stress test Requesting Physician: Dr. Hudson Attending Physician: John Hudson MD History of Present Illness Patient is a 42-year-old female with no prior pulmonary history who has been experiencing 6 months of dyspnea with exertion and most recently chest pain with exertion. She was admitted for chest pain rule out. She underwent exercise stress test which was negative for inducible ischemia. She did have reproducible symptoms of shortness of breath which demonstrated no ischemic EKG changes. CTA had been obtained which demonstrated no parenchymal lung disease or pulmonary vascular changes. Patient states that she has been noticing dyspnea with minimal exertion for the last 6 months. She does report that is worse with increasing activity and going up and down steps. She reports no prior history of pulmonary diseases. She is a lifelong non-smoker. 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 She does have a secondhand smoke exposure from her mother. No prior diagnosis of asthma, recurrent bronchitis, pneumonia, or COPD. She has not had similar symptoms in the past. Allergies Allergy/AdvReac Type Severity Reaction Status Date / Time morphine Allergy Severe hives Verified 11/21/23 09:46 adhesive Allergy Unknown SKIN Verified 08/06/15 13:28 BLISTERS ,SWELLING WITH TAPE metronidazole Allergy Unknown NASTY Verified 08/06/15 13:48 TASTE MOUTH GI UPSET Sulfa (Sulfonamide AdvReac Unknown NAUSEA AND Verified 08/12/15 17:34 Antibiotics) VOMITING Home Medications Medication Instructions Recorded Confirmed Type citalopram 40 mg tablet 40 mg PO DAILY 12/19/23 12/19/23 History cyanocobalamin (vitamin B-12) 1,000 mcg Q4WK 12/19/23 12/19/23 History 1,000 mcg/mL injection syringe hydroxychloroquine 200 mg tablet 200 mg PO BID 12/19/23 12/19/23 History pantoprazole 40 mg tablet,delayed 40 mg PO DAILY 12/19/23 12/19/23 History release spironolactone 25 mg tablet 25 mg PO DAILY 12/19/23 12/19/23 History oxycodone 5 mg tablet 5 mg PO QID PRN moderate to severe 12/21/23 Rx pain 5 days #20 tabs Patient History Medical History Rheumatoid arthritis History of endometriosis Complication of nephrostomy Family History Father COPD (chronic obstructive pulmonary disease) Mother Rheumatoid arthritis Social History Smoking Status: Never smoker Hx Alcohol Use: Yes Hx Substance Use: No Preferred Language: Sami Communication Ability: Effective Jig Builder Required: No Beliefs That Will Affect Care: None marital status: Current Living Situation: Spouse and Family current occupational status: employed 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 All else were negative. Physical Exam Physical Exam: VITAL SIGNS Vital signs and nursing notes were reviewed. GENERAL 42-year-old female appearing her stated age who is in no acute distress. Communicates well with provider and answers questions appropriately. SKIN Without rashes or lesions. NOSE Midline and without cyanosis. No epistaxis or purulent drainage noted. MOUTH/OROPHARYNX Without perioral cyanosis. NECK Neck with FROM. Supple to palpation. LUNGS Chest wall evaluation demonstrates normal chest wall A:P diameter. Auscultation reveals clear breath sounds bilaterally. CARDIAC RRR with S1/S2. No murmur, rubs, or gallops appreciated. EXTREMITIES Nail clubbing not present. No peripheral cyanosis. No pretibial edema present. +3/5 radial palpated throughout. PSYCH A&Ox3 and cooperates fully with examiner. Pt is very pleasant and interacts well with examiner. Results & Data Results & Data Vital Signs (Past 12 Hours) Vital Signs Temp Pulse Pulse Resp BP Pulse Ox O2 Del Method 12/21/23 07:52 36.8 C 88 18 101/68 94 Room Air 12/21/23 07:44 Room Air 12/21/23 04:11 37.1 C 87 16 106/72 92 Room Air 12/21/23 01:10 86 12/21/23 00:46 Room Air 12/20/23 22:58 36.7 C 85 18 96/66 L 94 Room Air PG Care Time/CCT Total # of Minutes Spent Total Time Spent with Patient: Total time spent is greater than 50% in coordination of care (as documented) at patient's floor/unit and/or counseling patient: Coding Level of Care Code 69527 OFFICE CONSULT LVL M Diagnoses HE (dyspnea on exertion) R06.09
[2023-12-21] MEDS: PROMETHAZINE 12.5 MG/50.5 ML BAG IV PRN (10:07)
--- NOTE | 2023-12-21 11:55 | Discharge Summary ---
Date of Service December 21, 2023 Admission HPI Per Admitting Provider Patient is a 42-year-old female with history of GERD, congenital UPJ obstruction S/P right nephrectomy, depression, palindromic rheumatism, panic disorder, essential tremor and other medical problems presents with history of chest pain associated with shortness of breath. Patient states having ongoing shortness of breath on exertion for about 6 months. 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 She describes chest pain retrosternal, nonradiating, heaviness," toothlike ache", constant pain. Denies any nausea, vomiting, diaphoresis, fever, chills, cough, chest trauma. Also denies any abdominal pain, diarrhea, dysuria, recent infections. Patient recently had a course of prednisone for her arthritis when she developed anxiety 1 week ago which resolved after discontinuing prednisone. She states that she has been going through a lot of stress due to divorce. She also states having intermittent palpitations. Admission Exam Per Admitting Provider General Appearance: Obese, no apparent distress Head: normocephalic, Atraumatic Eyes: normal inspection, EOMI Neck: supple, Trachea midline Respiratory/Chest: Normal breath sounds, CTA, No accessory muscle use Cardiovascular: S1, S2, No murmur Abdomen/GI:Soft, Non tender, Bowel sounds present Extremities/Musculoskeletal:normal inspection, no edema Neurologic/Psych:AAOX3, grossly no focal neurological deficits Skin: normal color, warm Principal Diagnosis Chest pain rule out ACS Dyspnea on exertion Discharge Exam General Appearance: Obese, no apparent distress Head: normocephalic, Atraumatic Eyes: normal inspection, EOMI Neck: supple, Trachea midline Respiratory/Chest: Normal breath sounds, CTA, No accessory muscle use Cardiovascular: S1, S2, No murmur Abdomen/GI:Soft, Non tender, Bowel sounds present Extremities/Musculoskeletal:normal inspection, no edema Neurologic/Psych:AAOX3, grossly no focal neurological deficits Skin: normal color, warm Discharge Data Allergies Allergy/AdvReac Type Severity Reaction Status Date / Time morphine Allergy Severe hives Verified 11/21/23 09:46 adhesive Allergy Unknown SKIN Verified 08/06/15 13:28 BLISTERS ,SWELLING WITH TAPE metronidazole Allergy Unknown NASTY Verified 08/06/15 13:48 TASTE MOUTH GI UPSET Sulfa (Sulfonamide AdvReac Unknown NAUSEA AND Verified 08/12/15 17:34 Antibiotics) VOMITING Consultations 12/19/23 19:00 ED Decision to Admit Stat 12/20/23 15:45 Consult Pulmonology Routine Ordered Studies 12/20/23 00:46 CT angio chest PE protocol Stat Hospital Course (1) Chest pain: 42-year-old lady with PMH of GERD, congenital UPJ obstruction status post right nephrectomy, depression, palindromic rheumatism, panic disorder, essential tremor presented with complaint of chest pain associated with shortness of breath ongoing for about 6 months. Before presentation, she developed chest pain on the morning of the day of arrival while at work and was associated with shortness of breath and dizziness. She describes chest pain as retrosternal, nonradiating, heaviness, constant pain. Denies any febrile illness. She was managed for the following: Chest Pain: R/O ACS SOB w/ exertion Tropx 3neg, Serial ekg w/ no acute ischemic changes. CXR: No acute process. stress test neg for inducible ischemia but symptoms reproduced w/o ischemic ECG changes or echocardiographic evidence of ischemia. . Cardio evaled, recs Pulm eval, consider outpatient cardiac CT for definitive evaluation of coronary anatomy. Pulm evaled, recs are OP spirometry and exhaled NO testing. Pt to establish w/ cards and pulm on dc. pt is hemodynamically stable and would like to go home. 2 step test - no Home O2 requirement. Hyperglycemia: noted at presentation, a1c 5.4 GERD: Continue Protonix. H/O congenital UPJ obstruction: S/P right nephrectomy. Monitor renal function Depression Panic disorder Essential tremor Continue home medications: Celexa PCP planning to transition from Celexa to Cymbalta(not started yet) Palindromic Rheumatism:Continue hydroxychloroquine. Follows with rheumatology Dr. Gabriel DVT Px: Heparin SQ CODE STATUS Full code Patient is being discharged home with following instruction at the point of discharge: Follow-up with your primary care physician within a week time and likely you will need labs CBC/CMP/magnesium/phosphorus. You were evaluated for chest pain and shortness of breath with exertion. You underwent stress test which came back negative. You underwent CT scan of your chest with no acute finding. As discussed at the bedside, no organic cause for your symptoms were diagnosed during this admission. Recommend that you closely follow-up with your PCP/cardiology/pulmonology. Cardiology evaluated you, recommends outpatient cardiac CT for definitive evaluation of your coronary anatomy. Follow-up with cardiology in about 2 weeks time upon discharge. Pulmonology evaluated you for your shortness of breath with exertion for about 6 months, they recommend spirometry and possible exertional nitric oxide testing. Establish and follow-up with pulmonology in about 1 to 2 weeks time upon discharge. Take your medications as prescribed. Please make sure that you are able to get your medications today by calling your pharmacy before you leave the hospital so that your treatment continuity is not broken. Home Health Attestation I certify that this patient is under my care and that I, or a physicians rehab care assistant working with me, had a face to-face encounter that meets the home health [id number] encounter requirements with this patient. The encounter with the patient was in whole, or in part, for the following medical condition, which is the primary reason for home health care (list medical condition): I certify that, based on my findings, the following services are medically necessary home health services: My clinical findings support the need for the above services because: Further, I certify that my clinical findings support that this patient is homebound (i.e. absences from home require considerable and taxing effort and are for medical reasons or anabaptist services or infrequently or of short duration when for other reasons) because: Certification for Home Health Services: Based on the above findings, I certify that this patient is confined to the home and needs intermittent long-term care, physical therapy and/or speech therapy or continues to need occupational therapy. The patient is under my care, and I have initiated the establishment of the plan of care. This patient will be followed by a physician who will periodically review the plan of care. Total Time Total Time Spent Total Time Spent (In Minutes): 40 Discharge Plan Discharge Items Patient Disposition: Home - Self-Care Reason For Visit: CEHST PAIN Discharge Diagnosis: Chest pain rule out ACS Dyspnea on exertion Activity: Resume your previous activity Non-emergency contact: Primary Care Provider Call non-emergency contact if: you have any medication questions, your symptoms worsen and your temperature is above 101.5 Follow-up/Referrals: Rob Mackenzie MD [Primary Care Provider] - Diet: Heart Healthy Addtl Attending Provider Instructions: Follow-up with your primary care physician within a week time and likely you will need labs CBC/CMP/magnesium/phosphorus. You were evaluated for chest pain and shortness of breath with exertion. You underwent stress test which came back negative. You underwent CT scan of your chest with no acute finding. As discussed at the bedside, no organic cause for your symptoms were diagnosed during this admission. Recommend that you closely follow-up with your PCP/cardiology/pulmonology. Cardiology evaluated you, recommends outpatient cardiac CT for definitive evaluation of your coronary anatomy. Follow-up with cardiology in about 2 weeks time upon discharge. Pulmonology evaluated you for your shortness of breath with exertion for about 6 months, they recommend spirometry and possible exertional nitric oxide testing. Establish and follow-up with pulmonology in about 1 to 2 weeks time upon discharge. Take your medications as prescribed. Please make sure that you are able to get your medications today by calling your pharmacy before you leave the hospital so that your treatment continuity is not broken. Pending Studies at Discharge: No Stand-Alone Forms: My [facility] [employer], Smoking Cessation Medications and DC Order Prescriptions: New oxycodone 5 mg Tablet 5 mg PO QID PRN (Reason: moderate to severe pain) 5 Days Qty: 20 0RF Continued citalopram 40 mg tablet 40 mg PO DAILY pantoprazole 40 mg tablet,delayed release (DR/EC) 40 mg PO DAILY hydroxychloroquine 200 mg tablet 200 mg PO BID cyanocobalamin (vitamin B-12) 1,000 mcg/mL Syringe 1,000 mcg Q4WK spironolactone 25 mg tablet 25 mg PO DAILY Discharge Orders: Discharge Order (Routine); Ordered 12/21/23 Ordered By: John Hudson Admission Data Admit Date/Time: 12/19/23 19:57 Attending Provider: John Hudson Admit Provider: Marin Zamudio Primary Care Provider: Rob Mackenzie Other Providers: Marin Zamudio; Hector Chase; Dhaval Washington; Hunter Shelley; Anibal Soliman; Tanisha Sims; Amparo Navarro; Nikita Falk; Ilya Waldrop; Shira Bunch
[2023-12-21 12:00] VITALS: BP 104/70; PULSE 75; O2SAT 91
== END 2023-12-21 13:46 | disposition home or self-care (01) ==
LOC: EDINP 15:42 → ED 15:42 → SUATTDRO 19:57 → 2N 23:38